=== PATIENT | female | born 1960 | race Caucasian/White ===

== ENCOUNTER → 2018-06-03 13:57 | Outpatient (CLI) | payer OTHER, MEDICAID, SELFPAY ==
--- NOTE | 2018-06-03 | DI.MRI.S_ITS ---
PROCEDURE: MR KNEE LT WO CON INDICATIONS: Left knee internal derangement TECHNIQUE: Noncontrast sagittal PD fast spin echo and T2 fast spin echo with fat saturation, sagittal 3-D FLASH with fat saturation; coronal T1 spin echo and PD fast spin echo with fat saturation, and axial PD fast spin echo with fat saturation through the knee. COMPARISON: [facility], CR, XR TIBIA FIBULA LEFT, 05/19/2018, 7:27. FINDINGS: Image quality: Excellent. Menisci: Linear high signal intensity obliquely traverses the posterior horn medial meniscus, demonstrating inferior articular surface extension, indicating oblique tearing. There is degenerative fraying of the free edge of the lateral meniscal body. Cruciate ligaments: The anterior and posterior cruciate ligaments appear intact. Medial structures: The medial collateral ligament appears intact. The posterior oblique ligament, semimembranosus tendon insertions, oblique popliteal ligament, and meniscocapsular junction appear intact. Visualized portions of the pes anserinus tendons appear normal. No abnormal bursal fluid. Lateral structures: The lateral collateral ligament, long and short heads of the biceps femoris tendon appear intact. The popliteus tendon appears normal; the popliteofibular ligament appears intact. The posterosuperior and anteroinferior popliteomeniscal fascicles appear intact. The arcuate and fabellofibular ligaments appear intact, on either side of the lateral inferior geniculate artery. Iliotibial band appears normal. Anterior structures: The quadriceps and patellar tendons appear intact. Patellar alignment is normal. No femoral trochlear dysplasia or ventral trochlear prominence. No edema in the infrapatellar fat pad. Bones and cartilage: Ill-defined linear low T1/T2 signal intensity traverses the fibular head/neck tension, and there is mild bony step-off posteriorly. Moderate ill-defined T2 signal elevation within the fibular head and neck is present. There is a moderate degree of ill-defined T2 signal elevation within the posterior weightbearing aspect of the medial tibial plateau. The cartilage of the medial and lateral femorotibial compartments, as well as the patellofemoral compartment, appears normal in thickness. Joint space: There is physiologic knee joint fluid. Small Hutson's cyst. Normal appearing synovial plicae are incidentally noted. IMPRESSION: 1. Mildly displaced fibular head/neck junction fracture. Contusion within the medial tibial plateau posteriorly. 2. Posterior horn medial meniscal tearing. Degenerative fraying of the free edge of the lateral meniscus. 3. Small knee joint effusion. Dictated by: River Haynes M.D. on 06/03/2018 at 15:06 Approved by: River Haynes M.D. on 06/03/2018 at 15:09
== END ==
PROVIDERS: Family Provider Family Medicine; PCP Family Medicine; Visit Provider Orthopaedic Surgery
DX: S82.832A Other fracture of upper and lower end of left fibula, initial encounter for closed fracture (principal); S83.242A Other tear of medial meniscus, current injury, left knee, initial encounter; M23.92 Unspecified internal derangement of left knee; M25.462 Effusion, left knee
CPT/HCPCS: 73721

== ENCOUNTER → 2018-08-19 11:45 | Outpatient (CLI) | payer MEDICARE, MEDICAID, SELFPAY ==
[2018-08-19 14:03] LABS: Add Manual Diff / Slide Review NO; Basophils Percent Auto 2.5 % (0-2); Eosinophils Percent Auto 3.1 % (2-4); Hematocrit 39.7 % (36-46); Hemoglobin 13.6 g/dL (12.0-16.0); Lymphocytes Percent Auto 43.1 % (25-40); Mean Corpuscular HGB Conc 34.2 % (30-36); Mean Corpuscular Hemoglobin 30.6 PG (26-34); Mean Corpuscular Volume 89.7 fL (80-100); Monocytes Percent Auto 6.2 % (3-14); Neutrophils Absolute Auto 2000 /uL (3000-5900); Neutrophils Percent Auto 45.1 % (50-75); Platelet Count 190 X10^3/uL (150-400); Red Blood Cell Count 4.43 X10^6/uL (4.0-5.2); Red Cell Distribution Width 14.6 % (11.6-14.8); White Blood Cell Count 4.4 X10^3/uL (4.5-11.0)
[2018-08-19 14:50] LABS: Alanine Aminotransferase 20 IU/L (9-52); Albumin 4.3 g/dL (3.5-5.0); Albumin Globulin Ratio 1.6 (1.0-2.8); Alkaline Phosphatase 101 U/L (38-126); Aspartate Aminotransferase 22 IU/L (14-36); BUN Creatinine Ratio 23.3 (6-22); Bilirubin Total 0.3 mg/dL (0.2-1.3); Blood Urea Nitrogen 14 mg/dL (7-17); Calcium 9.6 mg/dL (8.4-10.2); Carbon Dioxide 31 mmol/L (22-32); Chloride 103 mmol/L (98-107); Cholesterol 232 mg/dL (140-199); Estimated Glomerular Filt Rate > 60.0 mL/min (>60); Globulin 2.7 g/dL (1.7-4.1); Glucose 85 mg/dL (70-100); HDL Cholesterol 70 mg/dL (40-60); HEMOLYSIS < 15 (0-50); LDL Cholesterol Calculated 143 mg/dL (<100); Potassium 4.8 mmol/L (3.4-5.1); Sodium 143 mmol/L (137-145); Triglycerides 93 mg/dL (35-150)
[2018-08-19 15:15] LABS: Thyroid Stimulating Hormone 1.41 uIU/mL (0.47-4.68)
[2018-08-19 16:01] LABS: Hep C Virus Ab w/Reflex Quant REACTIVE s/c (NEGATIVE)
== END ==
PROVIDERS: PCP Family Medicine; Visit Provider Family Medicine
DX: G40.319 Generalized idiopathic epilepsy and epileptic syndromes, intractable, without status epilepticus (principal); Z78.9 Other specified health status; F33.1 Major depressive disorder, recurrent, moderate
CPT/HCPCS: 36415; 80053; 80061; 84443; 85025; 86803; 87522

== ENCOUNTER → 2019-09-12 16:18 | Outpatient (CLI) | payer MEDICARE, MEDICAID, SELFPAY ==
--- NOTE | 2019-09-12 | DI.RAD.S_ITS ---
PROCEDURE: XR T AND L SPINE 2 TO 3 VIEWS INDICATIONS: BACK PAIN/THORACOLUMBAR SPINE TECHNIQUE: 2 views acquired of the thoracolumbar spine. COMPARISON: None. FINDINGS: Bones: No acute fractures or dislocations. Visualized inferior ribs appear intact. No suspicious bony lesions. Mild lateral curvature and discogenic changes. Soft tissues: No suspicious soft tissue calcifications. IMPRESSION: No fracture. If the patient's pain or other symptoms persist, consider further evaluation with MRI Dictated by: Wan Dennison M.D. on 09/12/2019 at 17:29 Approved by: Wan Dennison M.D. on 09/12/2019 at 17:31
== END ==
PROVIDERS: PCP Student in an Organized Health Care Education/Training Program; Visit Provider Student in an Organized Health Care Education/Training Program
DX: M54.6 Pain in thoracic spine (principal)
CPT/HCPCS: 72082

== ENCOUNTER → 2020-06-27 15:59 | Outpatient (CLI) | payer MEDICARE, MEDICAID, SELFPAY ==
--- NOTE | 2020-06-27 16:02 | DI.RAD.S_ITS ---
PROCEDURE: XR FOOT LT MIN 3V INDICATIONS: LEFT FOOT PAIN TECHNIQUE: 3 views of the foot were acquired. COMPARISON: [facility], , FOOT 3V LEFT, 01/16/2015, 11:44. [facility], , FOOT 3V RIGHT, 05/19/2010, 19:48. FINDINGS: Bones: No new fractures or dislocations. No suspicious bony lesions. Healed avulsion fragment at the lateral border of the distal calcaneus. Prior fracture fusion plate lateral aspect of the fibula distally is again seen, free of disruption. Soft tissues: No tibiotalar joint effusion. Achilles tendon appears normal. IMPRESSION: Prior trauma, no acute trauma found. Dictated by: Ye Fajardo M.D. on 06/27/2020 at 16:43 Approved by: Ye Fajardo M.D. on 06/27/2020 at 16:45
== END ==
PROVIDERS: PCP Student in an Organized Health Care Education/Training Program; Referring Provider Student in an Organized Health Care Education/Training Program; Visit Provider Student in an Organized Health Care Education/Training Program
DX: M79.672 Pain in left foot (principal)
CPT/HCPCS: 73630

== ENCOUNTER → 2021-01-21 16:35 | Outpatient (CLI) | payer MEDICARE, MEDICAID, SELFPAY ==
--- NOTE | 2021-01-21 | DI.RAD.S_ITS ---
PROCEDURE: XR FOOT LT MIN 3V INDICATIONS: M79.676 TECHNIQUE: 3 views of the foot were acquired. COMPARISON: [facility], , XR FOOT LT MIN 3V, 06/27/2020, 16:08. FINDINGS: Bones: No fractures or dislocations. No suspicious bony lesions. Scattered degenerative subchondral sclerosis and spurring. Mild to moderate 1st MTP joint degeneration. Plate and screw fixation of the distal fibula. Hardware appears intact. Expected postoperative alignment. Small plantar calcaneal spur. Soft tissues: No tibiotalar joint effusion. Achilles tendon appears normal. IMPRESSION: Unchanged alignment Dictated by: Wan Dennison M.D. on 01/21/2021 at 16:57 Approved by: Wan Dennison M.D. on 01/21/2021 at 17:00
== END ==
PROVIDERS: PCP Student in an Organized Health Care Education/Training Program; Referring Provider Student in an Organized Health Care Education/Training Program; Visit Provider Student in an Organized Health Care Education/Training Program
DX: M79.672 Pain in left foot (principal); M79.676 Pain in unspecified toe(s)
CPT/HCPCS: 73630

== ENCOUNTER → 2021-08-07 15:09 | Outpatient (CLI) | payer MEDICARE, MEDICAID, SELFPAY ==
--- NOTE | 2021-08-07 | DI.RAD.S_ITS ---
PROCEDURE: XR CHEST 2V INDICATIONS: R07.9 TECHNIQUE: 2 views of the chest were acquired. COMPARISON: [facility], , CHEST 1 VIEW, 03/17/2017, 12:41. FINDINGS: Surgical changes and devices: None. Lungs and pleura: Lungs are clear. No pleural effusions or pneumothorax. Mediastinum: Mediastinal contours are normal. Heart size is normal. Bones and chest wall: No suspicious bony abnormalities. Soft tissues appear unremarkable. IMPRESSION: No acute cardiopulmonary abnormality Dictated by: Eamon Milton M.D. on 08/07/2021 at 16:17 Approved by: Eamon Milton M.D. on 08/07/2021 at 16:17
== END ==
PROVIDERS: PCP Student in an Organized Health Care Education/Training Program; Referring Provider Student in an Organized Health Care Education/Training Program; Visit Provider Student in an Organized Health Care Education/Training Program
DX: R07.9 Chest pain, unspecified (principal)
CPT/HCPCS: 71046

== ENCOUNTER → 2021-09-17 15:21 | Outpatient (CLI) | payer MEDICARE, MEDICAID, SELFPAY ==
--- NOTE | 2021-09-17 | DI.ECHO.S_ITS ---
[facility] +---------+ : : [address] : : : : [id number] : : : : Phone: [phone]+ Echocardiogram Report + + :Name: AMARI FIGUEROA Study Date: 09/17/2021 Height: 67.5 in: :[facility] ReadingLocation: Weight: 176 lb : : Gender: Female BSA: 1.9 m2 : :: 1960 Age: 61 yrs BP: 124/90 mmHg: :Reason For Study: CHEST PAIN : :Ordering Physician: MELISSA, : :ARMIN Performed By: Alesia Gaxiola : :Referring: ARMIN TORRES : + + Interpretation Summary The ejection fraction is estimated to be 55-60%. Unable to grade diastolic function. The right ventricle is normal in size and function. There is mild mitral regurgitation. Pulmonary artery pressures cannot be estimated. Procedure: A two-dimensional transthoracic echocardiogram with color flow and Doppler was performed. The study quality was technically adequate. There is no prior echocardiogram noted for this patient. The patient was in sinus rhythm with heart rates between 62-75 bpm during the exam. Left Ventricle: The left ventricle is normal in size and wall thickness. The ejection fraction is estimated to be 55-60%. Diastolic function could not be accurately assessed due to unobtainable data. Right Ventricle: The right ventricle is normal in size and function. Atria: The left atrium is mildly dilated. Right atrial size is normal. There is no Doppler evidence for an interatrial shunt. Mitral Valve: The mitral valve is normal in structure and function. There is mild mitral regurgitation. Aortic Valve: The aortic valve is trileaflet. The aortic valve opens well. There is no aortic valve stenosis. No aortic regurgitation is present. Tricuspid Valve: The tricuspid valve is normal in structure and function. There is trace tricuspid regurgitation. Pulmonary artery pressures cannot be estimated because of the lack of a measurable TR jet velocity. Pulmonic Valve: The pulmonic valve leaflets are thin and pliable; valve motion is normal. There is trace pulmonic regurgitation. Great Vessels: The aortic root is normal size. The dimensions of the ascending aorta are normal. The IVC is of normal diameter and collapses less than 50% with a sniff. This suggests a right atrial pressure of 8 mm Hg. Pericardium/ Pleura There is no pericardial effusion. There is no pleural effusion. MMode/2D Measurements & Calculations LVIDd: 4.5 cm LVOT diam: 2.1 cm LVIDs: 3.2 cm Ao root diam: 3.4 cm FS: 28.5 % Ao Arch Diam (Prox Trans): 2.6 cm IVSd: 0.58 cm LVPWd: 0.67 cm LV hidalgo. diameter/BSA (cm/m^2): 2.3 LV sys. diameter/BSA (cm/m^2): 1.7 LA A2 area: 14.6 cm2 RA long axis: 4.7 cm LA A4 area: 14.3 cm2 RA area: 12.4 cm2 LA length (vol): 4.5 cm RA vol: 27.9 ml LA vol: 39.2 ml RA : 14.5 ml/m2 LA vol index: 20.4 ml/m2 RVD1 (basal): 2.6 cm TAPSE: 1.8 cm Doppler Measurements & Calculations Ao V2 max: 114.4 cm/sec LVOT Max Kenneth: 73.2 cm/sec Ao V2 mean: 78.8 cm/sec LV V1 max P.1 mmHg Ao max P.2 mmHg LV V1 VTI: 12.9 cm Ao mean P.8 mmHg JAK(I,D): 2.2 cm2 Ao V2 VTI: 21.3 cm JAK(V,D): 2.3 cm2 sev ratio: 0.61 JAK indexed to BSA (cm^2/m^2): 1.1 MV E max kenneth: 38.4 cm/sec PA V2 max: 73.5 cm/sec MV A max kenneth: 60.3 cm/sec PA V2 mean: 49.4 cm/sec MV E/A: 0.64 PA mean P.1 mmHg Med Peak E' Kenneth: 3.9 cm/sec PA pr(Accel): 41.3 mmHg E/E' med: 9.8 Lat Peak E' Kenneth: 6.3 cm/sec E/E' lat: 6.1 E/e' average: 7.9 MV dec time: 0.28 sec SV(LVOT): 45.9 ml Reading Physician:01:33 PM
== END ==
PROVIDERS: PCP Student in an Organized Health Care Education/Training Program; Referring Provider Student in an Organized Health Care Education/Training Program; Visit Provider Student in an Organized Health Care Education/Training Program
DX: I34.0 Nonrheumatic mitral (valve) insufficiency (principal); R07.9 Chest pain, unspecified
CPT/HCPCS: 93306

== ENCOUNTER → 2021-12-31 11:09 | Outpatient (CLI) | payer OTHER, MEDICAID, SELFPAY ==
[2021-12-31 13:47] LABS: COVID19 -Nasal RAPID Negative (Negative)
== END ==
PROVIDERS: PCP Student in an Organized Health Care Education/Training Program; Visit Provider Family Medicine Sleep Medicine
DX: Z20.822 Contact with and (suspected) exposure to COVID-19 (principal)
CPT/HCPCS: 87635; C9803

== ENCOUNTER 2023-03-17 03:04 | Emergency (ER) | payer OTHER, MEDICAID, SELFPAY ==
[2023-03-17] VITALS (7 sets, daily range): BP systolic 87–135; BP diastolic 53–84; PULSE 69–82; RESP 15–43; TEMP 37.1; O2SAT 97–99; BMI 21.1
--- NOTE | 2023-03-17 03:09 | DI.RAD.S_ITS ---
PROCEDURE: XR CHEST 1V INDICATIONS: chest pain TECHNIQUE: One view of the chest was acquired. COMPARISON: [facility], CR, XR CHEST 2V, 08/07/2021, 15:24. FINDINGS: Surgical changes and devices: None. Lungs and pleura: Trace bibasilar hazy opacity. No consolidation. No pleural effusions or pneumothorax. Mediastinum: Mediastinal contours appear normal. Heart size is normal. Bones and chest wall: No suspicious bony lesions. Overlying soft tissues appear unremarkable. IMPRESSION: Mild bibasilar atelectasis. This report is concordant with the overnight preliminary interpretation. Dictated by: David Paulson M.D. on 03/17/2023 at 8:41 Approved by: David Paulson M.D. on 03/17/2023 at 8:42
[2023-03-17 03:18] LABS: Add Manual Diff / Slide Review NO; Basophils Absolute Auto 100 /uL (0-100); Basophils Percent Auto 1.8 % (0-2); Eosinophils Absolute Auto 200 /uL (0-450); Hematocrit 38.9 % (36-46); Hemoglobin 13.2 g/dL (12.0-16.0); Lymphocytes Absolute Auto 1800 /uL (1100-4500); Lymphocytes Percent Auto 27.6 % (25-40); Mean Corpuscular HGB Conc 33.9 % (30-36); Mean Corpuscular Hemoglobin 29.6 PG (26-34); Mean Corpuscular Volume 87.4 fL (80-100); Monocytes Absolute Auto 400 /uL (0-900); Monocytes Percent Auto 6.5 % (3-14); Neutrophils Absolute Auto 3900 /uL (1500-7000); Neutrophils Percent Auto 61.1 % (50-75); Platelet Count 208 X10^3/uL (150-400); Red Blood Cell Count 4.45 X10^6/uL (4.0-5.2); Red Cell Distribution Width 13.7 % (11.6-14.8); White Blood Cell Count 6.4 X10^3/uL (4.5-11.0)
--- NOTE | 2023-03-17 03:25 | ED_ITS ---
HPI - Chest Pain General Chief Complaint: Chest Pain Stated Complaint: chest pain Time Seen by Provider: 03/17/23 03:08 Source: patient and EMS Mode of arrival: EMS Limitations: no limitations History of Present Illness HPI narrative: Patient is a 62-year-old female who was brought in by EMS for evaluation of left sided chest discomfort. She states she was just sitting in her toe room when the symptoms started. It is on the left side of her chest. It is reproducible when she touches it. It does radiate to her left arm. She contacted EMS. She took 2 baby aspirin prior to arrival. She also received fentanyl by EMS prior to arrival without any improvement. Shortness of breath. No skin rashes. Related Data Home Medications Medication Instructions Recorded Confirmed fluoxetine 40 mg capsule (Prozac) 20 mg PO QDAY ##0 01/30/13 ibuprofen 200 mg capsule (Advil 200 mg PO ##0 11/11/16 Liqui-Gel) Previous Rx's Medication Instructions Recorded propranolol 20 mg tablet 20 mg PO BID #60 tabs 10/21/16 ketorolac 10 mg tablet 10 mg PO Q6HP PRN #20 tabs 11/11/16 hydrocodone 5 mg-acetaminophen 325 1 tab PO Q4HP PRN #15 tabs 11/20/16 mg tablet ([place]) phenytoin sodium extended 100 mg 500 mg PO SEE INSTRUCTIONS #125 12/23/16 capsule (Dilantin Extended) tabs divalproex 500 mg tablet,extended 0 PO SEE INSTRUCTIONS #100 tabs 12/21/17 release 24 hr (Depakote ER) Allergies Allergy/AdvReac Type Severity Reaction Status Date / Time codeine [CODEINE] Allergy Unknown Unverified 03/02/18 12:32 oxycodone [OXYCODONE] Allergy Unknown Unverified 03/02/18 12:32 Review of Systems Constitutional Constitutional: Reports system reviewed and no additional complaints, except as documented ENT Ears, Nose, Mouth, and Throat: Reports system reviewed and no additional complaints, except as documented Cardiovascular Cardiovascular: Reports system reviewed and no additional complaints, except as documented Respiratory Respiratory: Reports system reviewed and no additional complaints, except as documented Gastrointestinal Gastrointestinal: Reports system reviewed and no additional complaints, except as documented Integumentary/Breasts Skin/Breast: Reports system reviewed and no additional complaints, except as documented Patient History Social History Smoking Status: Current every day smoker Smoking Status: Current every day smoker tobacco type: cigarettes Substance Use Type: does not use Exam Initial Vital Signs Initial Vital Signs: Vital Signs Pulse Rate 82 03/17/23 03:11 Pulse Oximetry 99 03/17/23 03:11 Const General: cooperative and comfortable HENMT Head: normal to inspection and normocephalic Chest Chest: No crepitus and tenderness (Left-sided chest tenderness to palpation) Resp Effort & Inspection: normal respiratory effort Auscultation: clear to auscultation bilaterally Cardio Rate: regular rate Rhythm: regular rhythm Skin General: no rashes or lesions noted Neuro General: patient alert, patient awake and moves all extremities Extrem General: normal to inspection and capillary refill normal Course Orders Ordered: ED Orders 03/17/23 03:05 Complete Blood Count AUTO DIFF Stat Comprehensive Metabolic Panel Stat Lipase Stat Troponin & CK Cardiac Panel Stat 03/17/23 03:09 XR chest 1V Stat EKG-12 Lead Stat Vital Signs Vital signs: Vital Signs - 8 hr 03/17/23 03:15 03/17/23 03:11 03/17/23 03:30 Temperature 98.8 F Pulse Rate 78 82 Respiratory Rate 18 Blood Pressure 135/84 113/61 Pulse Oximetry 99 99 Oxygen Delivery Method Room Air 03/17/23 03:30 Temperature Pulse Rate 75 Respiratory Rate 15 Blood Pressure Pulse Oximetry 98 Oxygen Delivery Method MDM - Chest Pain Lab Data Attestation: I reviewed the patient's lab results. 03/17/23 03:05 03/17/23 03:05 Labs: Lab Results 03/17/23 03/17/23 Range/Units 03:05 03:05 WBC 6.4 (4.5-11.0) X10^3/uL RBC 4.45 (4.0-5.2) X10^6/uL Hgb 13.2 (12.0-16.0) g/dL Hct 38.9 (36-46) % MCV 87.4 (80-100) fL MCH 29.6 (26-34) PG MCHC 33.9 (30-36) % RDW 13.7 (11.6-14.8) % Plt Count 208 (150-400) X10^3/uL Neut % (Auto) 61.1 (50-75) % Lymph % (Auto) 27.6 (25-40) % [place] % (Auto) 6.5 (3-14) % Eos % (Auto) 3.0 (2-4) % Baso % (Auto) 1.8 (0-2) % Neut # (Auto) 3900 (8060-5306) /uL Lymph # (Auto) 1800 (2611-2059) /uL [place] # (Auto) 400 (0-900) /uL Eos # (Auto) 200 (0-450) /uL Baso # (Auto) 100 (0-100) /uL Sodium 138 (137-145) mmol/L Potassium 3.2 L (3.4-5.1) mmol/L Chloride 103 (98-107) mmol/L Carbon Dioxide 27 (22-32) mmol/L BUN 10 (7-17) mg/dL Creatinine 0.56 (0.52-1.04) mg/dL Estimated GFR > 60 (>60) mL/min BUN/Creatinine Ratio 17.9 (6-22) Glucose 101 (80-110) mg/dL Calcium 9.1 (8.4-10.2) mg/dL Total Bilirubin 0.5 (0.2-1.3) mg/dL AST 21 (14-36) IU/L ALT 18 (<35) IU/L Alkaline Phosphatase 146 H (38-126) U/L Total Creatine Kinase 59 (30-135) U/L CK-MB (CK-2) TNP CK-MB (CK-2) Rel Index TNP Troponin I < 0.012 (0.01-0.034) ng/mL Total Protein 7.5 (6.3-8.2) g/dL Albumin 4.4 (3.5-5.0) g/dL Globulin 3.1 (1.7-4.1) g/dL Albumin/Globulin Ratio 1.4 (1.0-2.8) Lipase 209 (23-300) U/L Imaging Data Chest x-ray: Radiologist's Impression: Mild bibasilar subsegmental atelectasis ECG Data Attestation: I personally reviewed and interpreted this ECG as follows: Interpretation: Sinus rhythm Ventricular rate 81 Normal axis Artifact noted in 1,2,3 No ischemic changes MDM Narrative Medical decision making narrative: Patient's chest x-ray is unremarkable. No ischemic changes noted on the EKG. Troponin is negative. We are able to reproduce the discomfort on the left side of her chest by palpating the anterior portion of her chest. Given the fact that it is reproducible if low suspicion for ACS. Low suspicion for pneumonia. No skin changes. Can potentially be costochondritis. Did discuss this with her. She understands lack of a definitive diagnosis. We will hold on further workup for now. Discharge patient home with instructions to follow-up with primary doctor. Discharge Plan Departure Patient Disposition: Home Clinical Impression: Acute chest wall pain Instructions: DI for Atypical Chest Pain Activity Restrictions/Additional Instructions: Recommend that you continue to take all of your medications as directed. Contact your primary doctor for follow-up. Return to the emergency department for new symptoms. Prescriptions: No Action fluoxetine [Prozac] 40 MG capsule 20 mg PO QDAY Qty: 0 propranolol 20 MG tablet 20 mg PO BID Qty: 60 3RF ibuprofen [Advil Liqui-Gel] 200 MG capsule 200 mg PO Qty: 0 ketorolac 10 MG tablet 10 mg PO Q6HP PRNQty: 20 0RF hydrocodone-acetaminophen [[place]] 5 MG/325 MG tablet 1 tab PO Q4HP PRNQty: 15 0RF phenytoin sodium extended [Dilantin Extended] 100 MG capsule 500 mg PO SEE INSTRUCTIONS Qty: 125 12RF divalproex [Depakote ER] 500 MG tablet extended release 24 hr 0 PO SEE INSTRUCTIONS Qty: 100 5RF Referrals: Madison Holly MD [Primary Care Provider] - Stand Alone Forms: Patient Portal/API
[2023-03-17 03:28] LABS: Alanine Aminotransferase 18 IU/L (<35); Albumin 4.4 g/dL (3.5-5.0); Albumin Globulin Ratio 1.4 (1.0-2.8); Alkaline Phosphatase 146 U/L (38-126); Aspartate Aminotransferase 21 IU/L (14-36); BUN Creatinine Ratio 17.9 (6-22); Bilirubin Total 0.5 mg/dL (0.2-1.3); Blood Urea Nitrogen 10 mg/dL (7-17); Calcium 9.1 mg/dL (8.4-10.2); Carbon Dioxide 27 mmol/L (22-32); Chloride 103 mmol/L (98-107); Creatine Kinase 59 U/L (30-135); Estimated Glomerular Filt Rate > 60 mL/min (>60); Globulin 3.1 g/dL (1.7-4.1); Glucose 101 mg/dL (80-110); HEMOLYSIS < 15 (0-50); Lipase 209 U/L (23-300); Potassium 3.2 mmol/L (3.4-5.1); Sodium 138 mmol/L (137-145); Total Protein 7.5 g/dL (6.3-8.2)
[2023-03-17 03:40] LABS: Troponin I < 0.012 ng/mL (0.01-0.034)
== END 2023-03-17 06:10 | disposition home or self-care (01) ==
PROVIDERS: Emergency Provider Emergency Medicine; PCP Student in an Organized Health Care Education/Training Program
DX: R07.89 Other chest pain (principal)
CPT/HCPCS: 36415; 71045; 80053; 82550; 83690; 84484; 85025; 93005; 93010; 99283; 99284

== ENCOUNTER 2023-03-27 22:06 | Emergency (ER) | payer OTHER, MEDICAID, SELFPAY ==
[2023-03-27 22:20] VITALS: BP 126/60; PULSE 88; RESP 16; TEMP 36.7; O2SAT 99; BMI 21.9
[2023-03-27 23:58] VITALS: BP 145/81; PULSE 90; RESP 24; O2SAT 100
--- NOTE | 2023-03-28 00:01 | DI.RAD.S_ITS ---
PROCEDURE: XR CHEST 2V INDICATIONS: SOB, CP TECHNIQUE: 2 views of the chest were acquired. COMPARISON: [facility], CR, XR CHEST 1V, 03/17/2023, 3:06. [facility], CR, XR CHEST 2V, 08/07/2021, 15:24. FINDINGS: Surgical changes and devices: None. Lungs and pleura: Lungs are clear. No pleural effusions or pneumothorax. Mediastinum: Mediastinal contours are normal. Heart size is normal. Bones and chest wall: No suspicious bony abnormalities. Soft tissues appear unremarkable. IMPRESSION: Relatively large lung volumes, possible prior smoking history. No pneumonia or pneumothorax found. Dictated by: Ye Fajardo M.D. on 03/28/2023 at 0:29 Approved by: Ye Fajardo M.D. on 03/28/2023 at 0:30
[2023-03-28 00:28] VITALS: PULSE 95; O2SAT 100
[2023-03-28 00:29] VITALS: BP 126/60; PULSE 91; O2SAT 100
[2023-03-28 00:30] VITALS: BP 125/60; PULSE 88; O2SAT 100
[2023-03-28] MEDS: SODIUM CHLORIDE 0.9% 1,000 ML 1000 ML IV (00:41)
[2023-03-28 00:43] LABS: Add Manual Diff / Slide Review NO; Basophils Absolute Auto 100 /uL (0-100); Basophils Percent Auto 1.3 % (0-2); Eosinophils Absolute Auto 100 /uL (0-450); Eosinophils Percent Auto 1.9 % (2-4); Hematocrit 37.7 % (36-46); Hemoglobin 12.8 g/dL (12.0-16.0); Lymphocytes Absolute Auto 1700 /uL (1100-4500); Lymphocytes Percent Auto 29.7 % (25-40); Mean Corpuscular Hemoglobin 29.8 PG (26-34); Mean Corpuscular Volume 87.7 fL (80-100); Monocytes Absolute Auto 400 /uL (0-900); Monocytes Percent Auto 7.1 % (3-14); Neutrophils Absolute Auto 3500 /uL (1500-7000); Platelet Count 242 X10^3/uL (150-400); Red Blood Cell Count 4.31 X10^6/uL (4.0-5.2); White Blood Cell Count 5.9 X10^3/uL (4.5-11.0)
[2023-03-28 00:51] LABS: D Dimer 608 ng/ml (<500)
[2023-03-28 00:55] LABS: Alanine Aminotransferase 16 IU/L (<35); Albumin 4.6 g/dL (3.5-5.0); Albumin Globulin Ratio 1.4 (1.0-2.8); Alkaline Phosphatase 117 U/L (38-126); Aspartate Aminotransferase 25 IU/L (14-36); BUN Creatinine Ratio 18.8 (6-22); Bilirubin Total 0.6 mg/dL (0.2-1.3); Blood Urea Nitrogen 12 mg/dL (7-17); Calcium 9.5 mg/dL (8.4-10.2); Carbon Dioxide 24 mmol/L (22-32); Chloride 105 mmol/L (98-107); Creatine Kinase 160 U/L (30-135); Estimated Glomerular Filt Rate > 60 mL/min (>60); Globulin 3.3 g/dL (1.7-4.1); Glucose 90 mg/dL (80-110); HEMOLYSIS 17 (0-50); Lipase 196 U/L (23-300); Magnesium 2.1 mg/dL (1.6-2.3); Potassium 3.4 mmol/L (3.4-5.1); Sodium 140 mmol/L (137-145); Total Protein 7.9 g/dL (6.3-8.2)
[2023-03-28 01:03] VITALS: PULSE 89; O2SAT 87
[2023-03-28 01:05] VITALS: BP 126/67; PULSE 93; O2SAT 100
[2023-03-28 01:06] LABS: Troponin I < 0.012 ng/mL (0.01-0.034)
[2023-03-28 01:09] LABS: CKMB % Relative Index 1.2 % (1.5-5.0); Creatine Kinase MB 1.92 ng/mL (<2.37)
--- NOTE | 2023-03-28 01:27 | ED_ITS ---
HPI - General Adult General Chief complaint: Urogenital-Female Stated complaint: Dehydrated Time Seen by Provider: 03/28/23 00:01 Source: patient Mode of arrival: Ambulatory History of Present Illness HPI narrative: 62-year-old female smoker with history of hypertension, peripheral artery disease, epilepsy, migraines, substance abuse and alcohol abuse presents to the emergency department this evening stating that she is dehydrated. She states that she has been a bit dizzy and lightheaded and urinating frequently. She denies any fever or chills. She states that she has been having chest pain and occasionally short of breath but denies any cough, fever or chills. She denies abdominal pain or constipation. She had been at [facility] yesterday with a chief complaint of chest pain and had a thorough evaluation including labs, imaging and EKGs and was discharged with a diagnosis of musculoskeletal pain Related Data Home Medications Medication Instructions Recorded Confirmed fluoxetine 40 mg capsule (Prozac) 20 mg PO QDAY ##0 01/30/13 ibuprofen 200 mg capsule (Advil 200 mg PO ##0 11/11/16 Liqui-Gel) Previous Rx's Medication Instructions Recorded propranolol 20 mg tablet 20 mg PO BID #60 tabs 10/21/16 ketorolac 10 mg tablet 10 mg PO Q6HP PRN #20 tabs 11/11/16 hydrocodone 5 mg-acetaminophen 325 1 tab PO Q4HP PRN #15 tabs 11/20/16 mg tablet (Bricelyn) phenytoin sodium extended 100 mg 500 mg PO SEE INSTRUCTIONS #125 12/23/16 capsule (Dilantin Extended) tabs divalproex 500 mg tablet,extended 0 PO SEE INSTRUCTIONS #100 tabs 12/21/17 release 24 hr (Depakote ER) Allergies Allergy/AdvReac Type Severity Reaction Status Date / Time codeine [CODEINE] Allergy Unknown Unverified 03/02/18 12:32 oxycodone [OXYCODONE] Allergy Unknown Unverified 03/02/18 12:32 Review of Systems Review of Systems Narrative: GENERAL: Denies chills, fatigue, malaise, fever, sweats. HEENT: Denies sinus pain, ear pain, sore throat, difficulty swallowing, dizziness. RESPIRATORY: Denies dyspnea, cough, wheezing, hemoptysis, sputum. CARDIOVASCULAR: See HPI GASTROINTESTINAL: Denies nausea, vomiting, abdominal pain, diarrhea, constipation, melena. : See HPI MUSCULOSKELETAL: denies weakness, joint pain, or bony pain SKIN: Denies rash, skin lesions, or other NEUROLOGIC: Denies weakness, headache, numbness, change in speech, confusion, seizures, incoordination. PSYCHIATRIC: No concerning psychosocial issues. 12 point review of systems is negative except for those stated above Patient History Social History Smoking Status: Current every day smoker Smoking Status: Current every day smoker tobacco type: cigarettes Substance Use Type: does not use Exam Narrative Exam Narrative: GENERAL: [62] year old patient appears stated age. Well-developed patient, in mild distress. HEAD: Atraumatic. Normocephalic. EYES: Pupils equal round and reactive. Extraocular motions intact. No scleral icterus. No injection or drainage. ENT: Moist mucous membranes Nose without bleeding, purulent drainage. Throat without erythema, tonsillar hypertrophy or exudate. Airway patent. NECK: Trachea midline. Non tender CARDIOVASCULAR: Regular rate and rhythm without murmurs, gallops, or rubs. Left anterior chest tender to palpation, reproduces the pain that brought her in RESPIRATORY: Clear to auscultation. Breath sounds equal bilaterally. No wheezes, rales, or rhonchi. GASTROINTESTINAL: Abdomen soft, non-tender, nondistended. EXTREMITIES: No edema or joint tenderness. BACK: Nontender without deformity or crepitance. No flank tenderness. NEURO: AOx3. SKIN: No rash or erythema of visible areas Initial Vital Signs Initial Vital Signs: Vital Signs Temperature 98.1 F 03/27/23 22:20 Pulse Rate 88 03/27/23 22:20 Respiratory Rate 16 03/27/23 22:20 Blood Pressure 126/60 03/27/23 22:20 Pulse Oximetry 99 03/27/23 22:20 Oxygen Delivery Method Room Air 03/27/23 22:20 Scores HEART Score Heart Score history: Slightly Suspicious Heart Score EKG: Non-Specific repolarization disturbance Heart Score Age: 45-64 years old Heart Score risk factors: 1-2 risk factors Heart Score troponin: < or = to normal limit Heart Score Total: 3 PERC Score Age greater than or equal to 50 years: Yes Heart rate greater than or equal to 100 bpm: No Room Air O2 Sat less than 95%: No Unilateral leg swelling: No Recent trauma or surgery: No Hemoptysis: No Prior PE or DVT: No Hormone Use: No Total PERC Score: 1 Wells' Criteria for PE Clinical signs and symptoms of DVT: No PE is #1 Dx or equally likely: No Heart rate > 100: No Immobilization at least 3 days or surg in previous 4 weeks: No History of PE or DVT: No Hemoptysis: No Malignancy w/Treatment within 6 months or palliative: No Wells' PE Score total: 0 Course Orders Ordered: ED Orders 03/28/23 00:01 XR chest 2V Stat 03/28/23 00:02 EKG-12 Lead Stat 03/28/23 00:33 Complete Blood Count AUTO DIFF Stat Comprehensive Metabolic Panel Stat D Dimer Stat Lipase Stat Magnesium Stat Troponin & CK Cardiac Panel Stat 03/28/23 01:14 CT angio chest PE protocol Stat Discontinued Medications Sodium Chloride (Normal Saline 0.9%) 1,000 mls @ 1,000 mls/hr IV BOLUS ONE Stop: 03/28/23 01:00 Last Infusion: 03/28/23 01:40 Dose: 0 mls/hr Documented By: Admin: 03/28/23 00:41 Dose: 1,000 mls/hr Documented By: RAUDEL Vital Signs Vital signs: Vital Signs - 8 hr 03/27/23 22:20 03/27/23 23:58 03/28/23 00:28 Temperature 98.1 F Pulse Rate 88 90 95 H Respiratory Rate 16 24 Blood Pressure 126/60 145/81 H Pulse Oximetry 99 100 100 Oxygen Delivery Method Room Air Room Air 03/28/23 00:29 03/28/23 00:29 03/28/23 00:30 Temperature Pulse Rate 91 H Respiratory Rate Blood Pressure 126/60 125/60 Pulse Oximetry 100 Oxygen Delivery Method 03/28/23 00:30 03/28/23 01:03 03/28/23 01:05 Temperature Pulse Rate 88 89 Respiratory Rate Blood Pressure 126/67 Pulse Oximetry 100 87 L Oxygen Delivery Method 03/28/23 01:05 03/28/23 01:30 03/28/23 01:30 Temperature Pulse Rate 93 H 85 Respiratory Rate Blood Pressure 127/69 Pulse Oximetry 100 98 Oxygen Delivery Method Medical Decision Making Lab Data 03/28/23 00:33 03/28/23 00:33 Labs: Lab Results 03/28/23 03/28/23 03/28/23 Range/Units 00:33 00:33 00:33 WBC 5.9 (4.5-11.0) X10^3/uL RBC 4.31 (4.0-5.2) X10^6/uL Hgb 12.8 (12.0-16.0) g/dL Hct 37.7 (36-46) % MCV 87.7 (80-100) fL MCH 29.8 (26-34) PG MCHC 34.0 (30-36) % RDW 14.0 (11.6-14.8) % Plt Count 242 (150-400) X10^3/uL Neut % (Auto) 60.0 (50-75) % Lymph % (Auto) 29.7 (25-40) % [place] % (Auto) 7.1 (3-14) % Eos % (Auto) 1.9 L (2-4) % Baso % (Auto) 1.3 (0-2) % Neut # (Auto) 3500 (6909-7918) /uL Lymph # (Auto) 1700 (3145-0443) /uL [place] # (Auto) 400 (0-900) /uL Eos # (Auto) 100 (0-450) /uL Baso # (Auto) 100 (0-100) /uL D-Dimer 608 H (<500) ng/ml Sodium 140 (137-145) mmol/L Potassium 3.4 (3.4-5.1) mmol/L Chloride 105 (98-107) mmol/L Carbon Dioxide 24 (22-32) mmol/L BUN 12 (7-17) mg/dL Creatinine 0.64 (0.52-1.04) mg/dL Estimated GFR > 60 (>60) mL/min BUN/Creatinine Ratio 18.8 (6-22) Glucose 90 (80-110) mg/dL Calcium 9.5 (8.4-10.2) mg/dL Magnesium 2.1 (1.6-2.3) mg/dL Total Bilirubin 0.6 (0.2-1.3) mg/dL AST 25 (14-36) IU/L ALT 16 (<35) IU/L Alkaline Phosphatase 117 (38-126) U/L Total Creatine Kinase 160 H (30-135) U/L CK-MB (CK-2) 1.92 (<2.37) ng/mL CK-MB (CK-2) Rel Index 1.2 L (1.5-5.0) % Troponin I < 0.012 (0.01-0.034) ng/mL Total Protein 7.9 (6.3-8.2) g/dL Albumin 4.6 (3.5-5.0) g/dL Globulin 3.3 (1.7-4.1) g/dL Albumin/Globulin Ratio 1.4 (1.0-2.8) Lipase 196 (23-300) U/L Urine Dip Bedside Urine Glucose Negative Bedside Urine Bilirubin - Negative Bedside Urine Ketone - Negative Urine Specific [place] 1.005 Bedside Urine Occult Blood - Negative Bedside Urine pH 6.0 Bedside Urine Protein - Negative Bedside Urine Urobilinogen - Negative Bedside Urine Nitrite - Negative Bedside Urine Leukocytes - Negative Esterase Point of care testing: Urine Dip Bedside Urine Glucose Negative Bedside Urine Bilirubin - Negative Bedside Urine Ketone - Negative Urine Specific [place] 1.005 Bedside Urine Occult Blood - Negative Bedside Urine pH 6.0 Bedside Urine Protein - Negative Bedside Urine Urobilinogen - Negative Bedside Urine Nitrite - Negative Bedside Urine Leukocytes - Negative Esterase MDM Narrative Medical decision making narrative: CC: 62-year-old female complains of dehydration Complicating co-morbidities: Age, alcohol abuse, peripheral artery disease, substance abuse versus other Data collected from: Patient Medical records reviewed: Prior notes reviewed in our EMR Differential considered, but not limited to: Dehydration, urinary tract infection, electrolyte abnormality, cardiac ischemia, pulmonary embolism versus other Exam documented above, pertinent findings include: Alert and oriented, no evidence of shortness of breath, heart rate regular, reproducible anterior chest pain, moist mucous membranes Lab Test results independently reviewed as above. Pertinent findings: No leukocytosis, left shift or signs of anemia. D-dimer is above age corrected cutoff, electrolytes, renal function, troponin all within normal Independently reviewed EKG as above Imaging studies independently reviewed: Scores Used: HEART. Wells/Perc Treatments: Fluids Re-evaluations: Patient feeling much better and in fact demanding to leave prior to the completion of our evaluation despite discussions at the bedside regarding risks and benefits and my concerns about the possibility of pulmonary embolism or other diagnosis. Despite this discussion she likes to leave. She is able to speak clearly and walk a straight line, she clearly has capacity to make her own decisions. She understands the risks and benefits and states she will return if she changes her mind. Discharge Plan Departure Patient Disposition: Left Against Medical Advice Clinical Impression: Urinary frequency, Atypical chest pain Activity Restrictions/Additional Instructions: *You have been diagnosed with [urinary frequency, question of possible dehydration and atypical chest pain. As we discussed I strongly recommend a CT scan of your chest to evaluate the possibility of a blood clot given your pain and elevated Ddimer. You may return any time if you change your mind *What to do: *Please continue to take your regular medications as directed. [ ] New medication prescriptions sent to your pharmacy: [ ] [ ] New medication written as a paper prescription [ ] No new medications given *Please follow up with your primary care provider in 2-3 days, call for an appointment. Let them know you were seen in the Emergency Department and that we ask that you be seen in follow up. We will electronically transmit a record of today's note if your PCP is in our system *If you do not have a primary care provider please contact the [facility] Resource line at [phone]. They will ask some questions about your medical history and help get you set up with a doctor in the community. *Return to Emergency Department if you should have any new, worsening or concerning symptoms, such as [fever greater than 101 F, shaking chills, worsening pain, persistent vomiting or other bothersome symptoms] Prescriptions: No Action fluoxetine [Prozac] 40 MG capsule 20 mg PO QDAY Qty: 0 propranolol 20 MG tablet 20 mg PO BID Qty: 60 3RF ibuprofen [Advil Liqui-Gel] 200 MG capsule 200 mg PO Qty: 0 ketorolac 10 MG tablet 10 mg PO Q6HP PRNQty: 20 0RF hydrocodone-acetaminophen [Bricelyn] 5 MG/325 MG tablet 1 tab PO Q4HP PRNQty: 15 0RF phenytoin sodium extended [Dilantin Extended] 100 MG capsule 500 mg PO SEE INSTRUCTIONS Qty: 125 12RF divalproex [Depakote ER] 500 MG tablet extended release 24 hr 0 PO SEE INSTRUCTIONS Qty: 100 5RF Stand Alone Forms: Against Medical Advice
[2023-03-28 01:30] VITALS: BP 127/69; PULSE 85; O2SAT 98
--- NOTE | 2023-03-28 02:09 | PC.NURSE ---
Pt resistant to answering questions. Paced around room & watched monitor closely. Staed she didn't need anything else & requested to be discharged.
== END 2023-03-28 02:13 | disposition left against medical advice (07) ==
PROVIDERS: Emergency Provider Emergency Medicine
DX: R35.0 Frequency of micturition (principal); R07.89 Other chest pain; R42 Dizziness and giddiness
CPT/HCPCS: 36415; 71046; 80053; 81003; 82550; 82553; 83690; 83735; 84484; 85025; 85379; 93005; 99284

== ENCOUNTER 2023-04-21 03:34 | Emergency (ER) | payer OTHER, MEDICAID, SELFPAY ==
[2023-04-21] VITALS (8 sets, daily range): BP systolic 104–129; BP diastolic 54–62; PULSE 78–89; RESP 15–18; TEMP 36.4; O2SAT 99–100; BMI 21.5
[2023-04-21] MEDS: SODIUM CHLORIDE 0.9% 1,000 ML 1000 ML IV (03:53)
[2023-04-21 04:00] LABS: Add Manual Diff / Slide Review NO; Basophils Absolute Auto 100 /uL (0-100); Basophils Percent Auto 1.2 % (0-2); Eosinophils Absolute Auto 100 /uL (0-450); Eosinophils Percent Auto 1.2 % (2-4); Hematocrit 35.2 % (36-46); Hemoglobin 12.1 g/dL (12.0-16.0); Lymphocytes Absolute Auto 1400 /uL (1100-4500); Lymphocytes Percent Auto 22.8 % (25-40); Mean Corpuscular HGB Conc 34.3 % (30-36); Mean Corpuscular Hemoglobin 29.4 PG (26-34); Mean Corpuscular Volume 85.7 fL (80-100); Monocytes Absolute Auto 400 /uL (0-900); Monocytes Percent Auto 6.2 % (3-14); Neutrophils Absolute Auto 4200 /uL (1500-7000); Neutrophils Percent Auto 68.6 % (50-75); Platelet Count 268 X10^3/uL (150-400); Red Cell Distribution Width 14.1 % (11.6-14.8); White Blood Cell Count 6.2 X10^3/uL (4.5-11.0)
[2023-04-21 04:05] LABS: INR 1.3 (0.9-1.3); Prothrombin Time 15.4 SECONDS (10.1-12.7)
[2023-04-21 04:06] LABS: D Dimer 753 ng/ml (<500)
--- NOTE | 2023-04-21 04:06 | ED_ITS ---
HPI - General Adult General Chief complaint: Dizziness Stated complaint: dizzy Time Seen by Provider: 04/21/23 03:35 History of Present Illness HPI narrative: 62-year-old female smoker with history of hypertension, peripheral artery disease, epilepsy, migraines, substance abuse and alcohol abuse presents to the emergency department this evening with multiple complaints. She states that over the course of the day in actually more often than not lately she has had dizziness that seems to be worse when she stands. She states it is not as bad when she turns her head from [address] way to the other. She states that she has had head injuries in the past but does not think she is had anything recently. She has a frontal headache that seems to come and go without obvious provocation or palliation. She denies blurred vision or trouble with speech. She has no neck pain. She has had some nasal congestion, sneezing, coughing and sore throat. She denies any chest pain or notable shortness of breath. She has had no nausea, vomiting or diarrhea. Related Data Home Medications Medication Instructions Recorded Confirmed fluoxetine 40 mg capsule (Prozac) 20 mg PO QDAY ##0 01/30/13 ibuprofen 200 mg capsule (Advil 200 mg PO ##0 11/11/16 Liqui-Gel) Previous Rx's Medication Instructions Recorded propranolol 20 mg tablet 20 mg PO BID #60 tabs 10/21/16 ketorolac 10 mg tablet 10 mg PO Q6HP PRN #20 tabs 11/11/16 hydrocodone 5 mg-acetaminophen 325 1 tab PO Q4HP PRN #15 tabs 11/20/16 mg tablet ([place]) phenytoin sodium extended 100 mg 500 mg PO SEE INSTRUCTIONS #125 12/23/16 capsule (Dilantin Extended) tabs divalproex 500 mg tablet,extended 0 PO SEE INSTRUCTIONS #100 tabs 12/21/17 release 24 hr (Depakote ER) Allergies Allergy/AdvReac Type Severity Reaction Status Date / Time codeine [CODEINE] Allergy Unknown Verified 04/21/23 04:54 oxycodone [OXYCODONE] Allergy Unknown Verified 04/21/23 04:54 Review of Systems Review of Systems Narrative: GENERAL: See HPI HEENT: See HPI RESPIRATORY: See HPI CARDIOVASCULAR: Denies chest pain, palpitations, orthopnea, edema, GASTROINTESTINAL: Denies nausea, vomiting, abdominal pain, diarrhea, constipation, melena. : Denies dysuria, frequency, incontinence, hematuria, urinary retention. MUSCULOSKELETAL: denies weakness, joint pain, or bony pain SKIN: Denies rash, skin lesions, or other NEUROLOGIC: Denies weakness, headache, numbness, change in speech, confusion, seizures, incoordination. PSYCHIATRIC: No concerning psychosocial issues. 12 point review of systems is negative except for those stated above Patient History Social History Smoking Status: Current every day smoker Smoking Status: Current every day smoker tobacco type: cigarettes Substance Use Type: does not use Exam Narrative Exam Narrative: GENERAL: [62] year old patient appears stated age. Well-developed patient, in mild distress. HEAD: Atraumatic. Normocephalic. EYES: Pupils equal round and reactive. Extraocular motions intact. No scleral icterus. No injection or drainage. ENT: Nose without bleeding, purulent drainage. Throat without erythema, tonsillar hypertrophy or exudate. Airway patent. NECK: Trachea midline. Non tender CARDIOVASCULAR: Regular rate and rhythm without murmurs, gallops, or rubs. RESPIRATORY: Clear to auscultation. Breath sounds equal bilaterally. No wheezes, rales, or rhonchi. GASTROINTESTINAL: Abdomen soft, non-tender, nondistended. EXTREMITIES: No edema or joint tenderness. BACK: Nontender without deformity or crepitance. No flank tenderness. NEURO: AOx3. SKIN: No rash or erythema of visible areas Initial Vital Signs Initial Vital Signs: Vital Signs Temperature 97.5 F L 04/21/23 03:35 Pulse Rate 87 04/21/23 03:35 Respiratory Rate 16 04/21/23 03:35 Blood Pressure 104/56 L 04/21/23 03:35 Pulse Oximetry 100 04/21/23 03:35 Oxygen Delivery Method Room Air 04/21/23 03:35 Course Orders Ordered: ED Orders 04/21/23 03:37 EKG-12 Lead Stat 04/21/23 03:38 Urine Drug Screen, Rapid Stat 04/21/23 03:51 Complete Blood Count AUTO DIFF Stat Comprehensive Metabolic Panel Stat D Dimer Stat Ethanol (ETOH) Stat Lipase Stat Magnesium Stat NT-proBNP (BNP-Adult 18+) Stat Prothrombin Time INR Stat Troponin & CK Cardiac Panel Stat 04/21/23 04:22 CT angio chest PE protocol Stat CT head/brain wo con Stat 04/21/23 04:23 CT abdomen pelvis w con Stat Discontinued Medications Sodium Chloride (Normal Saline 0.9%) 1,000 mls @ 1,000 mls/hr IV BOLUS ONE Stop: 04/21/23 04:36 Last Admin: 04/21/23 03:53 Dose: 1,000 mls/hr Documented By: Vital Signs Vital signs: Vital Signs - 8 hr 04/21/23 03:35 04/21/23 03:37 04/21/23 03:38 Temperature 97.5 F L Pulse Rate 87 89 89 Respiratory Rate 16 Blood Pressure 104/56 L Pulse Oximetry 100 99 100 Oxygen Delivery Method Room Air 04/21/23 04:00 04/21/23 04:01 04/21/23 04:01 Temperature Pulse Rate 80 79 Respiratory Rate 15 16 Blood Pressure 128/60 Pulse Oximetry 100 100 Oxygen Delivery Method 04/21/23 04:30 04/21/23 04:30 04/21/23 04:59 Temperature Pulse Rate 78 84 Respiratory Rate 18 17 Blood Pressure 109/54 L Pulse Oximetry 100 100 Oxygen Delivery Method 04/21/23 05:00 04/21/23 05:00 Temperature Pulse Rate 79 Respiratory Rate 16 Blood Pressure 129/62 Pulse Oximetry 99 Oxygen Delivery Method Medical Decision Making Lab Data 04/21/23 03:51 04/21/23 03:51 Labs: Lab Results 04/21/23 04/21/23 04/21/23 Range/Units 03:51 03:51 03:51 WBC 6.2 (4.5-11.0) X10^3/uL RBC 4.10 (4.0-5.2) X10^6/uL Hgb 12.1 (12.0-16.0) g/dL Hct 35.2 L (36-46) % MCV 85.7 (80-100) fL MCH 29.4 (26-34) PG MCHC 34.3 (30-36) % RDW 14.1 (11.6-14.8) % Plt Count 268 (150-400) X10^3/uL Neut % (Auto) 68.6 (50-75) % Lymph % (Auto) 22.8 L (25-40) % [facility] % (Auto) 6.2 (3-14) % Eos % (Auto) 1.2 L (2-4) % Baso % (Auto) 1.2 (0-2) % Neut # (Auto) 4200 (7938-8795) /uL Lymph # (Auto) 1400 (0511-9380) /uL [facility] # (Auto) 400 (0-900) /uL Eos # (Auto) 100 (0-450) /uL Baso # (Auto) 100 (0-100) /uL PT 15.4 H (10.1-12.7) SECONDS INR 1.3 (0.9-1.3) D-Dimer 753 H (<500) ng/ml Sodium 139 (137-145) mmol/L Potassium 3.4 (3.4-5.1) mmol/L Chloride 102 (98-107) mmol/L Carbon Dioxide 29 (22-32) mmol/L BUN 12 (7-17) mg/dL Creatinine 0.50 L (0.52-1.04) mg/dL Estimated GFR > 60 (>60) mL/min BUN/Creatinine Ratio 24.0 H (6-22) Glucose 104 (80-110) mg/dL Calcium 9.3 (8.4-10.2) mg/dL Magnesium 2.2 (1.6-2.3) mg/dL Total Bilirubin 0.7 (0.2-1.3) mg/dL AST 39 H (14-36) IU/L ALT 23 (<35) IU/L Alkaline Phosphatase 119 (38-126) U/L Total Creatine Kinase 529 H (30-135) U/L CK-MB (CK-2) TNP Troponin I < 0.012 (0.01-0.034) ng/mL NT-Pro-B Natriuret Pep 50 (<125) pg/mL Total Protein 7.3 (6.3-8.2) g/dL Albumin 4.1 (3.5-5.0) g/dL Globulin 3.2 (1.7-4.1) g/dL Albumin/Globulin Ratio 1.3 (1.0-2.8) Lipase 155 (23-300) U/L U Opiates 300ng/mL cut (Negative) Ur Oxycodone Screen (Negative) Urine Methadone Screen (Negative) Ur Barbiturates Screen (Negative) U Tricyclic Antidepress (Negative) Ur Phencyclidine Scrn (Negative) Ur Amphetamines Screen (Negative) U Methamphetamines Scrn (Negative) Ur MDMA Scrn (Ecstasy) (Negative) U Benzodiazepines Scrn (Negative) Urine Cocaine Screen (Negative) U Marijuana (THC) Screen (Negative) Ethyl Alcohol ( - 10) mg/dL 04/21/23 04/21/23 Range/Units 03:51 05:30 WBC (4.5-11.0) X10^3/uL RBC (4.0-5.2) X10^6/uL Hgb (12.0-16.0) g/dL Hct (36-46) % MCV (80-100) fL MCH (26-34) PG MCHC (30-36) % RDW (11.6-14.8) % Plt Count (150-400) X10^3/uL Neut % (Auto) (50-75) % Lymph % (Auto) (25-40) % [facility] % (Auto) (3-14) % Eos % (Auto) (2-4) % Baso % (Auto) (0-2) % Neut # (Auto) (7956-2097) /uL Lymph # (Auto) (5269-1381) /uL [facility] # (Auto) (0-900) /uL Eos # (Auto) (0-450) /uL Baso # (Auto) (0-100) /uL PT (10.1-12.7) SECONDS INR (0.9-1.3) D-Dimer (<500) ng/ml Sodium (137-145) mmol/L Potassium (3.4-5.1) mmol/L Chloride (98-107) mmol/L Carbon Dioxide (22-32) mmol/L BUN (7-17) mg/dL Creatinine (0.52-1.04) mg/dL Estimated GFR (>60) mL/min BUN/Creatinine Ratio (6-22) Glucose (80-110) mg/dL Calcium (8.4-10.2) mg/dL Magnesium (1.6-2.3) mg/dL Total Bilirubin (0.2-1.3) mg/dL AST (14-36) IU/L ALT (<35) IU/L Alkaline Phosphatase (38-126) U/L Total Creatine Kinase (30-135) U/L CK-MB (CK-2) Troponin I (0.01-0.034) ng/mL NT-Pro-B Natriuret Pep (<125) pg/mL Total Protein (6.3-8.2) g/dL Albumin (3.5-5.0) g/dL Globulin (1.7-4.1) g/dL Albumin/Globulin Ratio (1.0-2.8) Lipase (23-300) U/L U Opiates 300ng/mL cut Negative (Negative) Ur Oxycodone Screen Negative (Negative) Urine Methadone Screen Negative (Negative) Ur Barbiturates Screen Negative (Negative) U Tricyclic Antidepress Positive H (Negative) Ur Phencyclidine Scrn Negative (Negative) Ur Amphetamines Screen Negative (Negative) U Methamphetamines Scrn Negative (Negative) Ur MDMA Scrn (Ecstasy) Negative (Negative) U Benzodiazepines Scrn Negative (Negative) Urine Cocaine Screen Negative (Negative) U Marijuana (THC) Screen Negative (Negative) Ethyl Alcohol < 10 ( - 10) mg/dL Urine Dip Bedside Urine Glucose Negative Bedside Urine Bilirubin - Negative Bedside Urine Ketone +/- 5 Urine Specific [place] 1.015 Bedside Urine Occult Blood - Negative Bedside Urine pH 6 Bedside Urine Protein - Negative Bedside Urine Urobilinogen - Negative Bedside Urine Nitrite - Negative Bedside Urine Leukocytes - Negative Esterase Point of care testing: Urine Dip Bedside Urine Glucose Negative Bedside Urine Bilirubin - Negative Bedside Urine Ketone +/- 5 Urine Specific [place] 1.015 Bedside Urine Occult Blood - Negative Bedside Urine pH 6 Bedside Urine Protein - Negative Bedside Urine Urobilinogen - Negative Bedside Urine Nitrite - Negative Bedside Urine Leukocytes - Negative Esterase MDM Narrative Medical decision making narrative: [62] year old patient presents with various symptoms including occasional dizziness, bilateral flank pain and mild upper respiratory symptoms Multiple etiologies for patient's symptoms considered including, but not limited to: [Viral etiology versus pneumonia versus pulmonary embolism versus dehydration versus intracranial abnormality] Prior Charts reviewed in our EMR Primary Historian: patient Labs reviewed and interpreted by myself: No leukocytosis or left shift, no signs of anemia, D-dimer is above age corrected cutoff, will pursue angiography to rule out PE Imaging reviewed: Head CT without acute findings, CT angiogram of chest without evidence of pulmonary embolism or pneumonia, abdomen and pelvis without acute findings, there 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 Patient's symptoms improved over duration of stay with above-stated therapies. She is speaking clearly without slurring words, ambulatory through the department after receiving fluids. History and physical exam are reassuring and there are no significant abnormalities that would obviously require specific or immediate intervention. Multiple diagnoses considered as noted above. She is no evidence of stroke or intracranial hemorrhage. No evidence myocardial infarction, pulmonary embolism, pneumonia or pericardial effusion. No abnormal findings on abdomen and pelvis. There is mention of an occluded stent on the abdomen pelvis CT, however patient has no pain, swelling, redness or neurovascular change in her extremities Findings and discharge diagnosis discussed with patient/family followed by verb alization of understanding Return precautions discussed with patient/family whom verbalize understanding of diagnosis and plan Discharge Plan Departure Patient Disposition: Home Clinical Impression: Dizziness, Acute dehydration Instructions: DI for Dizziness-Nonvertigo Activity Restrictions/Additional Instructions: *You have been diagnosed with [dizziness, generalized weakness, dehydration] *What to do: *Please continue to take your regular medications as directed. *Please follow up with your primary care provider in 2-3 days, call for an appointment. Let them know you were seen in the Emergency Department and that we ask that you be seen in follow up. We will electronically transmit a record of today's note if your PCP is in our system *If you do not have a primary care provider please contact the [facility] Resource line at [phone]. They will ask some questions about your medical history and help get you set up with a doctor in the community. *Return to Emergency Department if you should have any new, worsening or concerning symptoms, such as [fever greater than 101 F, shaking chills, worsening pain, persistent vomiting or other bothersome symptoms] Prescriptions: No Action fluoxetine [Prozac] 40 MG capsule 20 mg PO QDAY Qty: 0 propranolol 20 MG tablet 20 mg PO BID Qty: 60 3RF ibuprofen [Advil Liqui-Gel] 200 MG capsule 200 mg PO Qty: 0 ketorolac 10 MG tablet 10 mg PO Q6HP PRNQty: 20 0RF hydrocodone-acetaminophen [[place]] 5 MG/325 MG tablet 1 tab PO Q4HP PRNQty: 15 0RF phenytoin sodium extended [Dilantin Extended] 100 MG capsule 500 mg PO SEE INSTRUCTIONS Qty: 125 12RF divalproex [Depakote ER] 500 MG tablet extended release 24 hr 0 PO SEE INSTRUCTIONS Qty: 100 5RF Referrals: Miscellaneous,Doctor, MD [Primary Care Provider] - Stand Alone Forms: Patient Portal/API
[2023-04-21 04:10] LABS: Alanine Aminotransferase 23 IU/L (<35); Albumin 4.1 g/dL (3.5-5.0); Albumin Globulin Ratio 1.3 (1.0-2.8); Alkaline Phosphatase 119 U/L (38-126); Aspartate Aminotransferase 39 IU/L (14-36); Bilirubin Total 0.7 mg/dL (0.2-1.3); Blood Urea Nitrogen 12 mg/dL (7-17); Calcium 9.3 mg/dL (8.4-10.2); Carbon Dioxide 29 mmol/L (22-32); Chloride 102 mmol/L (98-107); Creatine Kinase 529 U/L (30-135); Estimated Glomerular Filt Rate > 60 mL/min (>60); Globulin 3.2 g/dL (1.7-4.1); Glucose 104 mg/dL (80-110); HEMOLYSIS < 15 (0-50); Lipase 155 U/L (23-300); Magnesium 2.2 mg/dL (1.6-2.3); Potassium 3.4 mmol/L (3.4-5.1); Sodium 139 mmol/L (137-145); Total Protein 7.3 g/dL (6.3-8.2)
[2023-04-21 04:11] LABS: Ethanol (ETOH) < 10 mg/dL
[2023-04-21 04:22] LABS: NT-proBNP (BNP-Adult 18+) 50 pg/mL (<125); Troponin I < 0.012 ng/mL (0.01-0.034)
--- NOTE | 2023-04-21 04:22 | DI.CT.S_ITS ---
PROCEDURE: CT ANGIO CHEST PE PROTOCOL INDICATIONS: CRITICAL D DIMER TECHNIQUE: After the administration of intravenous contrast, 2 mm thick sections acquired from the pulmonary apices to the posterior costophrenic angles. 3-dimensional maximum intensity projection (MIP) coronal and sagittal reformats were then acquired through the thorax. For radiation dose reduction, the following was used: automated exposure control, adjustment of mA and/or kV according to patient size. COMPARISON: [facility], CT, CT ABDOMEN PELVIS W CON, 04/21/2023, 4:36. FINDINGS: Image quality: Excellent. Pulmonary arteries: Pulmonary arteries are normal in size, and demonstrate no intraluminal filling defects to suggest central pulmonary embolism. Lungs and pleura: Lungs are clear. No pleural effusions or pneumothorax. Central and peripheral airways are patent. Mediastinum: Heart size is normal, without pericardial effusion. Mild coronary artery calcification. No mediastinal or hilar adenopathy. Thoracic aorta is normal in caliber and enhancement. Esophagus is normal in caliber. Small hiatal hernia. Bones and chest wall: No suspicious bony lesions. Ribs and thoracic spine appear intact throughout. The left thyroid lobe is enlarged and contains a 1.8 x 1.0 cm nodule. No axillary or supraclavicular adenopathy. Abdomen: Visualized upper abdominal solid organs appear normal in the early arterial phase of enhancement. IMPRESSION: 1. No evidence for pulmonary embolism. 2. Left thyroid nodule. Recommend thyroid ultrasound for follow-up. No significant discrepancy with the [facility] shift lead radiology preliminary report. Dictated by: Alaina Watkins M.D. on 04/21/2023 at 7:51 Approved by: Alaina Watkins M.D. on 04/21/2023 at 7:54
--- NOTE | 2023-04-21 04:22 | DI.CT.S_ITS ---
PROCEDURE: CT HEAD/BRAIN WO CON INDICATIONS: DIZZYNESS TECHNIQUE: Noncontrast 4.5 mm thick angled axial sections acquired from the foramen magnum to the vertex, with coronal and sagittal reformats. For radiation dose reduction, the following was used: automated exposure control, adjustment of mA and/or kV according to patient size. COMPARISON: [facility], CT, HEAD WITHOUT CONTRAST, 03/17/2017, 11:40. [facility], CT, HEAD WITHOUT CONTRAST, 11/20/2016, 14:14. FINDINGS: Image quality: Excellent. CSF spaces: Basal cisterns are patent. No extra-axial fluid collections. The ventricles are symmetric in size and shape. Brain: No intracranial bleeds or masses. There is cerebral volume loss for age, with resultant ventricular and sulcal prominence. There are periventricular and deep white matter chronic small vessel ischemic changes. There is intracranial internal carotid artery atherosclerosis. Skull and face: Calvarium and visualized facial bones appear intact, without suspicious lesions. Sinuses: Visualized sinuses and mastoids are clear. IMPRESSION: 1. CT head without acute intracranial abnormalities or acute calvarial fractures. 2. Age-related senescent changes and sequela of chronic small vessel ischemic disease. 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 Dictated by: Gabriel Gilbert M.D. on 04/21/2023 at 7:19 Approved by: Gabriel Gilbert M.D. on 04/21/2023 at 7:20
--- NOTE | 2023-04-21 04:23 | DI.CT.S_ITS ---
PROCEDURE: CT ABDOMEN PELVIS W CON INDICATIONS: Bilateral flank pain TECHNIQUE: After the administration of IV contrast, axial sections were acquired from the lung bases to the pubic symphysis. Coronal and sagittal reformats were performed. For radiation dose reduction, the following was used: automated exposure control, adjustment of mA and/or kV according to patient size. COMPARISON: [facility], CT, KIDNEY/ URETER/BLADDER, 01/09/2011, 13:32. FINDINGS: Image quality: Excellent. Lung bases: Unremarkable. Heart: No significant findings. ABDOMEN: Liver: Unremarkable. Gallbladder: There are gallstones. No gallbladder wall thickening or pericholecystic fluid. Biliary ducts: Unremarkable. Pancreas: Unremarkable. Spleen: Unremarkable. Adrenal Glands: Unremarkable. Kidneys and Ureters: Indeterminate hypodensities in the left kidney, probably a cyst. Stomach and Bowel: Stomach, small bowel loops, and colon are unremarkable. Diverticulosis without diverticulitis. Peritoneum: No abnormal intraperitoneal fluid. No free air. Ventral Wall: No hernia. Abdominal Nodes: No retroperitoneal or mesenteric adenopathy by size criteria. Vessels: Aorta and inferior vena cava are normal in size. Severe atherosclerotic calcifications. There is a stent in the left, iliac artery. PELVIS: Pelvic Organs: Unremarkable. Bladder: Unremarkable. Pelvic Nodes: No enlarged lymph nodes. Miscellaneous: No inguinal hernias are seen. Bones: Unremarkable. IMPRESSION: 1. No acute inflammatory process in abdomen or pelvis. 2. Cholelithiasis. 3. Mild diverticulosis. No diverticulitis. No significant discrepancy with the warehouse worker 2nd shift radiology preliminary report. Dictated by: Alaina Watkins M.D. on 04/21/2023 at 7:45 Approved by: Alaina Watkins M.D. on 04/21/2023 at 7:50
[2023-04-21 05:42] LABS: UR Morphine/Opiate cutoff 300 Negative (Negative); Ur Creatinine Normal (Normal); Ur Specific Gravity Normal (Normal); Urine Amphetamines Negative (Negative); Urine Barbiturates Negative (Negative); Urine Benzodiazepines Negative (Negative); Urine Cocaine Negative (Negative); Urine MDMA Negative (Negative); Urine Methadone Negative (Negative); Urine Methamphetamines Negative (Negative); Urine Oxycodone Negative (Negative); Urine Phencyclidine Negative (Negative); Urine Tetrahydrocannabinol Negative (Negative); Urine Tricyclic Antidepressant Positive (Negative); Urine pH Normal (Normal)
== END 2023-04-21 06:06 | disposition home or self-care (01) ==
PROVIDERS: Emergency Provider Emergency Medicine
DX: R42 Dizziness and giddiness (principal); E86.0 Dehydration; R53.1 Weakness; R07.9 Chest pain, unspecified
CPT/HCPCS: 36415; 70450; 71275; 74177; 80053; 80305; 80320; 81003; 82550; 83690; 83735; 83880; 84484; 85025; 85379; 85610; 93005; 93010; 96360; 99284; Q9967

== ENCOUNTER 2025-03-04 00:54 | Emergency (ER) | payer MEDICARE, MEDICAID, SELFPAY ==
[2025-03-04 00:59] VITALS: BP 128/60; PULSE 78; RESP 18; TEMP 36.9; O2SAT 97
--- NOTE | 2025-03-04 01:05 | ED_ITS ---
HPI - General Adult General Chief complaint: Seizure Stated complaint: seizure aura Time Seen by Provider: 03/04/25 00:56 History of Present Illness HPI narrative: 64-year-old woman with a history of posttraumatic epilepsy for which she takes topiramate 150 mg b.i.d. and Keppra 500 mg in the morning and 750 mg in the evening, migraines, COPD, hypertension, peripheral arterial disease, alcohol use disorder, methamphetamine use disorder, presents via EMS today [facility] and feeling that she was having an aura sensation that was going to lead to a seizure. She states she has been staying in [place] recently but is no longer staying there. Was planning to get a hotel in [place] with the [facility] location no rooms were available, she [facility] available so [facility]. She does smell of alcohol currently. She reports last seizure she had was about 3 weeks ago and last medications were somewhere in the last 24-48 hours. She is somewhat confrontational and belligerent with interacting with staff in regard to any questions. She describes her head feeling as if 1 spike is high and 1 spike is low with the head fullness and headache. Related Data Home Medications Medication Instructions Recorded Confirmed fluoxetine 40 mg capsule (Prozac) 20 mg PO QDAY ##0 01/30/13 ibuprofen 200 mg capsule (Advil 200 mg PO ##0 11/11/16 Liqui-Gel) Previous Rx's Medication Instructions Recorded propranolol 20 mg tablet 20 mg PO BID #60 tabs 10/21/16 ketorolac 10 mg tablet 10 mg PO Q6HP PRN #20 tabs 11/11/16 hydrocodone 5 mg-acetaminophen 325 1 tab PO Q4HP PRN #15 tabs 11/20/16 mg tablet ([place]) phenytoin sodium extended 100 mg 500 mg (5 x 100 mg) PO SEE 12/23/16 capsule (Dilantin Extended) INSTRUCTIONS #125 tabs divalproex 500 mg tablet,extended 0 PO SEE INSTRUCTIONS #100 tabs 12/21/17 release 24 hr (Depakote ER) levetiracetam 500 mg tablet 500 mg PO .HS #30 tabs 03/04/25 (Keppra) levetiracetam 750 mg tablet 750 mg PO DAILY #30 tabs 03/04/25 (Keppra) topiramate 100 mg tablet 150 mg (1.5 x 100 mg) PO BID #90 03/04/25 tabs Allergies Allergy/AdvReac Type Severity Reaction Status Date / Time codeine [CODEINE] Allergy Unknown Verified 04/21/23 04:54 oxycodone [OXYCODONE] Allergy Unknown Verified 04/21/23 04:54 Review of Systems Review of Systems Narrative: Tiny periumbilical ventral hernia contains fat with surrounding edema may reflect incarcerated fat. No evidence of a bowel involvement Patient History Medical History (Updated 03/04/25 @ 01:57 by Courtney Schultz MD) Hyperlipidemia History of kidney stones Peripheral arterial disease Hypertension COPD (chronic obstructive pulmonary disease) Methamphetamine abuse Continuous tobacco abuse Alcohol use disorder Migraine with aura Post-traumatic epilepsy tobacco type: cigarettes Exam Initial Vital Signs Initial Vital Signs: Vital Signs Temperature 98.5 F 03/04/25 00:59 Pulse Rate 78 03/04/25 00:59 Respiratory Rate 18 03/04/25 00:59 Blood Pressure 128/60 03/04/25 00:59 Pulse Oximetry 97 03/04/25 00:59 Oxygen Delivery Method Room Air 03/04/25 00:59 General: Chronically ill-appearing, somewhat disheveled, smells of alcohol, belligerent and confrontational, able to speak in complete sentences HEENT: Moist mucous membranes, normal sclera with reactive pupils, Respiratory: Lungs with minor scattered wheeze, no rhonchi Cardiac: Regular rate and rhythm no murmurs no bruits Abdomen: Soft, nontender, no rebound or guarding, no flank pain Skin: Peripheral skin and finger changes consistent with exposure to the elements for extended period periods of time. Neurologic: Grossly neurologically intact with no obvious asymmetries or abnormalities, she is not hyperreflexic Extremities: No trauma, no lower extremity edema Psych: Fluent speech, angry and frustrated Course Orders Ordered: ED Orders 03/04/25 01:06 Urinalysis and Microscopic Stat 03/04/25 01:13 Complete Blood Count AUTO DIFF Stat Comprehensive Metabolic Panel Stat Ethanol (ETOH) Stat Lipase Stat Magnesium Stat Discontinued Medications Diazepam (Diazepam 10 Mg/2 Ml Syringe) 5 mg IV NOW ONE Stop: 03/04/25 02:11 Last Admin: 03/04/25 02:17 Dose: 5 mg Documented By: RLC Sodium Chloride (Normal Saline 0.9%) 1,000 mls @ 1,000 mls/hr IV BOLUS ONE Stop: 03/04/25 02:04 Last Infusion: 03/04/25 02:23 Dose: Infused Documented By: Admin: 03/04/25 01:14 Dose: 1,000 mls/hr Documented By: JADE Levetiracetam 1,000 mg/ Sodium (Chloride) 110 mls @ 440 mls/hr IV NOW ONE Stop: 03/04/25 01:06 Last Infusion: 03/04/25 01:44 Dose: Infused Documented By: Admin: 03/04/25 01:15 Dose: 440 mls/hr Documented By: JADE Ketorolac Tromethamine (Ketorolac 30 Mg/Ml Vial) 15 mg IV NOW ONE Stop: 03/04/25 02:11 Last Admin: 03/04/25 02:16 Dose: 15 mg Documented By: ANNA Ondansetron HCl (Ondansetron 4 Mg/2 Ml Inj) 4 mg IV NOW ONE Stop: 03/04/25 01:06 Last Admin: 03/04/25 01:15 Dose: 4 mg Documented By: JADE Vital Signs Vital signs: Vital Signs - 8 hr 03/04/25 00:59 03/04/25 02:21 Temperature 98.5 F Pulse Rate 78 77 Respiratory Rate 18 16 Blood Pressure 128/60 111/54 L Pulse Oximetry 97 96 Oxygen Delivery Method Room Air Room Air Medical Decision Making Lab Data 03/04/25 01:13 03/04/25 01:13 Labs: Lab Results 03/04/25 Range/Units 01:13 WBC 4.8 (4.5-11.0) X10^3/uL RBC 4.18 (4.0-5.2) X10^6/uL Hgb 12.4 (12.0-16.0) g/dL Hct 36.6 (36-46) % MCV 87.4 (80-100) fL MCH 29.6 (26-34) PG MCHC 33.9 (30-36) % RDW 13.6 (11.6-14.8) % Plt Count 208 (150-400) X10^3/uL Neut % (Auto) 60.4 (50-75) % Lymph % (Auto) 30.4 (25-40) % Ida % (Auto) 6.4 (3-14) % Eos % (Auto) 1.2 L (2-4) % Baso % (Auto) 1.6 (0-2) % Neut # (Auto) 2900 (3439-4925) /uL Lymph # (Auto) 1500 (8766-1993) /uL Ida # (Auto) 300 (0-900) /uL Eos # (Auto) 100 (0-450) /uL Baso # (Auto) 100 (0-100) /uL Sodium 143 (137-145) mmol/L Potassium 3.7 (3.4-5.1) mmol/L Chloride 109 H (98-107) mmol/L Carbon Dioxide 22 (22-32) mmol/L BUN 12 (7-17) mg/dL Creatinine 0.67 (0.52-1.04) mg/dL Estimated GFR > 60 (>60) mL/min BUN/Creatinine Ratio 17.9 (6-22) Glucose 102 (80-110) mg/dL Calcium 9.5 (8.4-10.2) mg/dL Magnesium 2.2 (1.6-2.3) mg/dL Total Bilirubin 0.6 (0.2-1.3) mg/dL AST 21 (14-36) IU/L ALT 14 (<35) IU/L Alkaline Phosphatase 74 (38-126) U/L Total Protein 6.9 (6.3-8.2) g/dL Albumin 4.3 (3.5-5.0) g/dL Globulin 2.6 (1.7-4.1) g/dL Albumin/Globulin Ratio 1.7 (1.0-2.8) Lipase 222 (23-300) U/L Ethyl Alcohol 49 H ( - 10) mg/dL Point of Care Testing Glucose POC 90 Point of care testing: Point of Care Testing Glucose POC 90 MDM Narrative Medical decision making narrative: CC:I have a seizure aura Complicating co-morbidities: Posttraumatic epilepsy, alcohol use disorder, medication noncompliance, housing instability, Data collected from: patient Social determinants of health that may influence the patients condition: [facility], is unclear that she has any type of permanent housing or access to any of her prescribed medications Medical records reviewed: Records from [facility], recent visits to [facility] have not been since 2002. There is an [facility]NESTO report showing multiple recent visits to [facility] General Differential considered: Alcohol intoxication, at risk for seizure, medication noncompliance, migraine headache Exam documented above, pertinent findings include: Patient is intoxicated, belligerent, she is not hyperreflexic remainder of exam is essentially benign Lab Test results independently reviewed as above. Pertinent findings: CBC is unremarkable with no anemia Chemistries are reassuring, normal renal function, no or liver study abnormalities Lipase is appropriate Alcohol level is slightly elevated at 49 Treatments: 1 L of fluid, 1g of IV levetiracetam, 4 mg of IV Zofran Re-evaluations: 210am patient is feeling much better after fluids, Keppra and Zofran. She was still complaining of slight headache and also complains of muscle twitching. And she is having uncontrolled myoclonic jerks of her neck muscles. We will try IV Toradol as well as IV diazepam and re-evaluate Discussion: 64-year-old woman with a history of seizure disorder, difficulty in finding a hotel but states she has resources for hotels as well as calves. Minor amount of alcohol this evening. She is feeling better after medications, headache treatment and a dose of diazepam for myoclonic twitching. She has pulled out her IV at 4:00 a.m. and request that monitors be removed. We will help facilitate this she is clearly safe for discharge at this point. We will refill Keppra and topiramate per patient request, sending prescription to [facility]. Encouraged her to follow up with her primary care physician Discharge Plan Departure Patient Disposition: Home Clinical Impression: Seizure disorder Headache, migraine Qualifiers: Migraine type: unspecified Status migrainosus presence: without status migrainosus Intractability: not intractable Qualified Code(s): G43.909 - Migraine, unspecified, not intractable, without status migrainosus Alcohol intoxication Qualifiers: Complication of substance-induced condition: uncomplicated Qualified Code(s): F 10.920 - Alcohol use, unspecified with intoxication, uncomplicated Instructions: DI for Seizure Disorder -- Adult Activity Restrictions/Additional Instructions: I am glad you are feeling better. I am glad you are headache has improved and you did not have a seizure tonight. You were given 1g of IV Keppra, 1L of IV fluid, Toradol for your headache and diazepam for the muscle twitching. I have sent prescriptions for Keppra, 500 mg at night, 750 mg in the morning and topiramate 150 mg twice a day to [facility] in [place]. Because you are not sure of the doses these were the most recent doses that I could find documented for refilling. You do need to follow up with your primary care physician to make sure that you are in the rate doses and the remainder of your medications are also refilled. I wish you the best Prescriptions: New levetiracetam [Keppra] 750 mg tablet 750 mg PO DAILY Qty: 30 3RF levetiracetam [Keppra] 500 mg tablet 500 mg PO .HS Qty: 30 3RF topiramate 100 mg tablet 150 mg PO BID Qty: 90 3RF No Action fluoxetine [Prozac] 40 MG capsule 20 mg PO QDAY Qty: 0 propranolol 20 MG tablet 20 mg PO BID Qty: 60 3RF ibuprofen [Advil Liqui-Gel] 200 MG capsule 200 mg PO Qty: 0 ketorolac 10 MG tablet 10 mg PO Q6HP PRNQty: 20 0RF hydrocodone-acetaminophen [[place]] 5 MG/325 MG tablet 1 tab PO Q4HP PRNQty: 15 0RF phenytoin sodium extended [Dilantin Extended] 100 MG capsule 500 mg PO SEE INSTRUCTIONS Qty: 125 12RF divalproex [Depakote ER] 500 MG tablet extended release 24 hr 0 PO SEE INSTRUCTIONS Qty: 100 5RF Referrals: Miscellaneous,Doctor, MD [Primary Care Provider] - Stand Alone Forms: Patient Portal/API/Survey
[2025-03-04] MEDS: SODIUM CHLORIDE 0.9% 1,000 ML 1000 ML IV (01:14)
[2025-03-04] MEDS: levETIRAcetam 1,000 MG in SODIUM CHLORIDE 0.9% 100 ML 440 MG IV (01:15)
[2025-03-04] MEDS: ONDANSETRON 4 MG/2 ML INJ IV (01:15)
[2025-03-04 01:24] LABS: Add Manual Diff / Slide Review NO; Basophils Absolute Auto 100 /uL (0-100); Basophils Percent Auto 1.6 % (0-2); Eosinophils Absolute Auto 100 /uL (0-450); Eosinophils Percent Auto 1.2 % (2-4); Hematocrit 36.6 % (36-46); Hemoglobin 12.4 g/dL (12.0-16.0); Lymphocytes Absolute Auto 1500 /uL (1100-4500); Lymphocytes Percent Auto 30.4 % (25-40); Mean Corpuscular HGB Conc 33.9 % (30-36); Mean Corpuscular Hemoglobin 29.6 PG (26-34); Mean Corpuscular Volume 87.4 fL (80-100); Monocytes Absolute Auto 300 /uL (0-900); Monocytes Percent Auto 6.4 % (3-14); Neutrophils Absolute Auto 2900 /uL (1500-7000); Neutrophils Percent Auto 60.4 % (50-75); Platelet Count 208 X10^3/uL (150-400); Red Blood Cell Count 4.18 X10^6/uL (4.0-5.2); Red Cell Distribution Width 13.6 % (11.6-14.8); White Blood Cell Count 4.8 X10^3/uL (4.5-11.0)
[2025-03-04 01:33] LABS: Alanine Aminotransferase 14 IU/L (<35); Albumin 4.3 g/dL (3.5-5.0); Albumin Globulin Ratio 1.7 (1.0-2.8); Alkaline Phosphatase 74 U/L (38-126); Aspartate Aminotransferase 21 IU/L (14-36); BUN Creatinine Ratio 17.9 (6-22); Bilirubin Total 0.6 mg/dL (0.2-1.3); Blood Urea Nitrogen 12 mg/dL (7-17); Calcium 9.5 mg/dL (8.4-10.2); Carbon Dioxide 22 mmol/L (22-32); Chloride 109 mmol/L (98-107); Estimated Glomerular Filt Rate > 60 mL/min (>60); Ethanol (ETOH) 49 mg/dL; Globulin 2.6 g/dL (1.7-4.1); Glucose 102 mg/dL (80-110); HEMOLYSIS < 15 (0-50); Lipase 222 U/L (23-300); Magnesium 2.2 mg/dL (1.6-2.3); Potassium 3.7 mmol/L (3.4-5.1); Sodium 143 mmol/L (137-145); Total Protein 6.9 g/dL (6.3-8.2)
[2025-03-04] MEDS: KETOROLAC 30 MG/ML VIAL 15 MG IV (02:16)
[2025-03-04] MEDS: diazePAM 10 MG/2 ML SYRINGE 5 MG IV (02:17)
[2025-03-04 02:21] VITALS: BP 111/54; PULSE 77; RESP 16; O2SAT 96
[2025-03-04 02:30] VITALS: BP 98/52; PULSE 73; O2SAT 94
[2025-03-04 03:00] VITALS: BP 90/52; PULSE 72; O2SAT 94
[2025-03-04 03:30] VITALS: BP 91/54; PULSE 72; RESP 14; O2SAT 95
== END 2025-03-04 06:27 | disposition home or self-care (01) ==
PROVIDERS: Emergency Provider Emergency Medicine
DX: G40.909 Epilepsy, unspecified, not intractable, without status epilepticus (principal); G43.909 Migraine, unspecified, not intractable, without status migrainosus; F10.920 Alcohol use, unspecified with intoxication, uncomplicated
CPT/HCPCS: 36415; 80053; 80320; 83690; 83735; 85025; 96365; 96375; 99284; J1885; J1953; J2405; J3360

== ENCOUNTER 2025-03-13 01:23 | Emergency (ER) | payer MEDICARE, MEDICAID, SELFPAY ==
[2025-03-13] VITALS (52 sets, daily range): BP systolic 70–135; BP diastolic 43–80; PULSE 61–84; RESP 13–39; TEMP 36.2; O2SAT 94–100
--- NOTE | 2025-03-13 01:25 | ED_ITS ---
HPI - General Adult <Otoniel Virk DO - Last Filed: 03/13/25 05:45> General Chief complaint: Toxicology Problem Stated complaint: RIGOBERTO/etoh Time Seen by Provider: 03/13/25 01:24 History of Present Illness HPI narrative: 64-year-old female with a history of posttraumatic epilepsy on topiramate 150 mg b.i.d., Keppra 500 mg in the morning, was brought in by police for being found walking around, according to police they were called because the patient was drinking at a bar in [place] and patient was unable to tell the police where she lives. At time of initial evaluation patient intoxicated, she states that she was drinking prior to arrival but states that she just wants to be ?left alone patient states that she has a history of seizures but did not take any of her medications today. Patient belligerent, agitated, refusing to cooperate with exam therefore additional ROS HPI limited. Related Data Home Medications Medication Instructions Recorded Confirmed fluoxetine 40 mg capsule (Prozac) 20 mg PO QDAY ##0 01/30/13 ibuprofen 200 mg capsule (Advil 200 mg PO ##0 11/11/16 Liqui-Gel) Previous Rx's Medication Instructions Recorded propranolol 20 mg tablet 20 mg PO BID #60 tabs 10/21/16 ketorolac 10 mg tablet 10 mg PO Q6HP PRN #20 tabs 11/11/16 hydrocodone 5 mg-acetaminophen 325 1 tab PO Q4HP PRN #15 tabs 11/20/16 mg tablet (Mcintire) phenytoin sodium extended 100 mg 500 mg (5 x 100 mg) PO SEE 12/23/16 capsule (Dilantin Extended) INSTRUCTIONS #125 tabs divalproex 500 mg tablet,extended 0 PO SEE INSTRUCTIONS #100 tabs 12/21/17 release 24 hr (Depakote ER) levetiracetam 500 mg tablet 500 mg PO .HS #30 tabs 03/04/25 (Keppra) levetiracetam 750 mg tablet 750 mg PO DAILY #30 tabs 03/04/25 (Keppra) topiramate 100 mg tablet 150 mg (1.5 x 100 mg) PO BID #90 03/04/25 tabs Allergies Allergy/AdvReac Type Severity Reaction Status Date / Time codeine [CODEINE] Allergy Unknown Verified 04/21/23 04:54 oxycodone [OXYCODONE] Allergy Unknown Verified 04/21/23 04:54 Review of Systems <Otoniel Virk DO - Last Filed: 03/13/25 05:45> Review of Systems ROS Unobtainable: Unobtainable due to mental status/LOC Patient History <Otoniel Virk DO - Last Filed: 03/13/25 05:45> Medical History (Updated 03/13/25 @ 08:27 by Karina Bradshaw DO) Hyperlipidemia History of kidney stones Peripheral arterial disease Hypertension COPD (chronic obstructive pulmonary disease) Methamphetamine abuse Continuous tobacco abuse Alcohol use disorder Migraine with aura Post-traumatic epilepsy tobacco type: cigarettes Exam <Otoniel Virk DO - Last Filed: 03/13/25 05:45> Narrative Exam Narrative: General: Patient obviously inebriated, refusing to cooperate with the exam, well-developed, not in acute distress HEENT: Normocephalic, atraumatic, PERRLA, normal sclera, eyelids normal Neck: Active full range of motion, atraumatic Chest: Normal to inspection, negative crepitus, no overlying erythema ecchymosis Respiratory: Normal respiratory effort, not in acute respiratory distress, clear to auscultation bilaterally negative cough, wheeze, tachypnea, rhonchi, rales Cardiology: Regular rate rhythm negative gallop, murmur, rubs GI/: No tenderness to palpation, soft, non rigid, normal to inspection, exam deferred MSK: Full active range of motion in all 4 extremities, atraumatic, Skin: No rashes or lesions noted Neuro: Patient is moving all 4 extremities spontaneously, she was able to stand walk by herself with police Initial Vital Signs Initial Vital Signs: Vital Signs Blood Pressure 106/61 03/13/25 01:38 <Karina Bradshaw DO - Last Filed: 03/13/25 16:44> Initial Vital Signs Initial Vital Signs: Vital Signs Blood Pressure 106/61 03/13/25 01:38 Course <Otoniel Virk DO - Last Filed: 03/13/25 05:45> Orders Ordered: ED Orders 03/13/25 10:36 Consult to MOTOR LODGE CLERK - [employer] Stat Discontinued Medications Levetiracetam 1,000 mg/ Sodium (Chloride) 110 mls @ 440 mls/hr IV NOW ONE Stop: 03/13/25 01:38 Last Infusion: 03/13/25 02:24 Dose: Infused Documented By: Admin: 03/13/25 01:42 Dose: 440 mls/hr Documented By: CHANO Sodium Chloride (Normal Saline 0.9%) 1,000 mls @ 1,000 mls/hr IV BOLUS ONE Stop: 03/13/25 02:43 Last Infusion: 03/13/25 03:05 Dose: Infused Documented By: Admin: 03/13/25 01:44 Dose: 1,000 mls/hr Documented By: CHANO Sodium Chloride (Normal Saline 0.9%) 1,000 mls @ 1,000 mls/hr IV BOLUS ONE Stop: 03/13/25 03:34 Last Infusion: 03/13/25 04:50 Dose: Infused Documented By: Admin: 03/13/25 03:05 Dose: 1,000 mls/hr Documented By: CARLOS Lorazepam (Lorazepam 2 Mg/Ml Inj) 4 mg IV PRN PRN PRN Reason: Seizures Lorazepam (Lorazepam 2 Mg/Ml Inj) 2 mg IV NOW ONE Stop: 03/13/25 02:11 Last Admin: 03/13/25 02:13 Dose: 2 mg Documented By: CHANO Lorazepam (Lorazepam 2 Mg/Ml Inj) 2 mg IM NOW ONE Stop: 03/13/25 02:18 Last Admin: 03/13/25 01:37 Dose: 2 mg Documented By: CHANO Topiramate (Topiramate 100 Mg Tablet) 150 mg PO NOW ONE Stop: 03/13/25 05:43 Last Admin: 03/13/25 14:45 Dose: Not Given Documented By: RANULFO Vital Signs Vital signs: Vital Signs - 8 hr 03/13/25 09:00 03/13/25 09:00 03/13/25 09:30 Pulse Rate 66 65 Respiratory Rate 16 15 Blood Pressure 102/63 Pulse Oximetry 94 98 Oxygen Delivery Method 03/13/25 09:30 03/13/25 10:00 03/13/25 10:00 Pulse Rate 65 Respiratory Rate 15 Blood Pressure 102/64 106/66 Pulse Oximetry 98 Oxygen Delivery Method 03/13/25 10:30 03/13/25 10:30 03/13/25 11:00 Pulse Rate 63 Respiratory Rate 15 Blood Pressure 108/55 L 107/58 L Pulse Oximetry 99 Oxygen Delivery Method 03/13/25 11:00 03/13/25 11:30 03/13/25 11:30 Pulse Rate 61 62 Respiratory Rate 16 16 Blood Pressure 129/68 Pulse Oximetry 100 97 Oxygen Delivery Method 03/13/25 12:00 03/13/25 12:00 03/13/25 12:30 Pulse Rate 62 Respiratory Rate 28 H Blood Pressure 125/65 125/69 Pulse Oximetry 99 Oxygen Delivery Method 03/13/25 12:30 03/13/25 13:00 03/13/25 13:00 Pulse Rate 65 63 Respiratory Rate 24 Blood Pressure 132/67 Pulse Oximetry 99 98 Oxygen Delivery Method 03/13/25 13:30 03/13/25 13:30 03/13/25 14:15 Pulse Rate 67 81 Respiratory Rate 29 H 16 Blood Pressure 128/63 126/66 Pulse Oximetry 98 98 Oxygen Delivery Method Room Air <Karina Bradshaw DO - Last Filed: 03/13/25 16:44> Orders Ordered: ED Orders 03/13/25 10:36 Consult to MOTOR LODGE CLERK - Real Estate Broker Stat Discontinued Medications Levetiracetam 1,000 mg/ Sodium (Chloride) 110 mls @ 440 mls/hr IV NOW ONE Stop: 03/13/25 01:38 Last Infusion: 03/13/25 02:24 Dose: Infused Documented By: Admin: 03/13/25 01:42 Dose: 440 mls/hr Documented By: CHANO Sodium Chloride (Normal Saline 0.9%) 1,000 mls @ 1,000 mls/hr IV BOLUS ONE Stop: 03/13/25 02:43 Last Infusion: 03/13/25 03:05 Dose: Infused Documented By: Admin: 03/13/25 01:44 Dose: 1,000 mls/hr Documented By: CHANO Sodium Chloride (Normal Saline 0.9%) 1,000 mls @ 1,000 mls/hr IV BOLUS ONE Stop: 03/13/25 03:34 Last Infusion: 03/13/25 04:50 Dose: Infused Documented By: Admin: 03/13/25 03:05 Dose: 1,000 mls/hr Documented By: CARLOS Lorazepam (Lorazepam 2 Mg/Ml Inj) 4 mg IV PRN PRN PRN Reason: Seizures Lorazepam (Lorazepam 2 Mg/Ml Inj) 2 mg IV NOW ONE Stop: 03/13/25 02:11 Last Admin: 03/13/25 02:13 Dose: 2 mg Documented By: CHANO Lorazepam (Lorazepam 2 Mg/Ml Inj) 2 mg IM NOW ONE Stop: 03/13/25 02:18 Last Admin: 03/13/25 01:37 Dose: 2 mg Documented By: CHANO Topiramate (Topiramate 100 Mg Tablet) 150 mg PO NOW ONE Stop: 03/13/25 05:43 Last Admin: 03/13/25 14:45 Dose: Not Given Documented By: RANULFO Vital Signs Vital signs: Vital Signs - 8 hr 03/13/25 09:00 03/13/25 09:00 03/13/25 09:30 Pulse Rate 66 65 Respiratory Rate 16 15 Blood Pressure 102/63 Pulse Oximetry 94 98 Oxygen Delivery Method 03/13/25 09:30 03/13/25 10:00 03/13/25 10:00 Pulse Rate 65 Respiratory Rate 15 Blood Pressure 102/64 106/66 Pulse Oximetry 98 Oxygen Delivery Method 03/13/25 10:30 03/13/25 10:30 03/13/25 11:00 Pulse Rate 63 Respiratory Rate 15 Blood Pressure 108/55 L 107/58 L Pulse Oximetry 99 Oxygen Delivery Method 03/13/25 11:00 03/13/25 11:30 03/13/25 11:30 Pulse Rate 61 62 Respiratory Rate 16 16 Blood Pressure 129/68 Pulse Oximetry 100 97 Oxygen Delivery Method 03/13/25 12:00 03/13/25 12:00 03/13/25 12:30 Pulse Rate 62 Respiratory Rate 28 H Blood Pressure 125/65 125/69 Pulse Oximetry 99 Oxygen Delivery Method 03/13/25 12:30 03/13/25 13:00 03/13/25 13:00 Pulse Rate 65 63 Respiratory Rate 24 Blood Pressure 132/67 Pulse Oximetry 99 98 Oxygen Delivery Method 03/13/25 13:30 03/13/25 13:30 03/13/25 14:15 Pulse Rate 67 81 Respiratory Rate 29 H 16 Blood Pressure 128/63 126/66 Pulse Oximetry 98 98 Oxygen Delivery Method Room Air Medical Decision Making <Otoniel Virk DO - Last Filed: 03/13/25 05:45> Lab Data 03/13/25 01:45 03/13/25 01:45 Labs: Lab Results 03/13/25 03/13/25 03/13/25 Range/Units 01:45 01:55 01:55 WBC 4.1 L (4.5-11.0) X10^3/uL RBC 4.38 (4.0-5.2) X10^6/uL Hgb 12.9 (12.0-16.0) g/dL Hct 38.5 (36-46) % MCV 87.9 (80-100) fL MCH 29.4 (26-34) PG MCHC 33.4 (30-36) % RDW 14.1 (11.6-14.8) % Plt Count 196 (150-400) X10^3/uL Neut % (Auto) 49.4 L (50-75) % Lymph % (Auto) 41.4 H (25-40) % Chambers % (Auto) 5.5 (3-14) % Eos % (Auto) 1.5 L (2-4) % Baso % (Auto) 2.2 H (0-2) % Neut # (Auto) 2000 (0028-8512) /uL Lymph # (Auto) 1700 (9154-4890) /uL Chambers # (Auto) 200 (0-900) /uL Eos # (Auto) 100 (0-450) /uL Baso # (Auto) 100 (0-100) /uL Sodium 147 H (137-145) mmol/L Potassium 3.9 (3.4-5.1) mmol/L Chloride 112 H (98-107) mmol/L Carbon Dioxide 23 (22-32) mmol/L BUN 9 (7-17) mg/dL Creatinine 0.63 (0.52-1.04) mg/dL Estimated GFR > 60 (>60) mL/min BUN/Creatinine Ratio 14.3 (6-22) Glucose 107 (80-110) mg/dL Calcium 8.8 (8.4-10.2) mg/dL Magnesium 2.3 (1.6-2.3) mg/dL Total Bilirubin 0.4 (0.2-1.3) mg/dL AST 32 (14-36) IU/L ALT 15 (<35) IU/L Alkaline Phosphatase 72 (38-126) U/L Total Protein 7.0 (6.3-8.2) g/dL Albumin 4.2 (3.5-5.0) g/dL Globulin 2.8 (1.7-4.1) g/dL Albumin/Globulin Ratio 1.5 (1.0-2.8) Lipase 220 (23-300) U/L Urine Color Yellow Urine Appearance Clear Urine pH 5.5 TNP (4.5-8.0) Ur Specific [place] 1.010 (1.000-1.035) Urine Protein Negative (Negative) Urine Glucose (UA) Negative (Negative) g/dL Urine Ketones Negative (NEGATIVE) Urine Occult Blood Negative (Negative) Urine Nitrate Negative (Negative) Urine Bilirubin Negative (NEGATIVE) Urine Urobilinogen 0.2 (0.2) E.U./dL Ur Leukocyte Esterase Negative (NEGATIVE) Urine RBC None seen (0-5/HPF) Urine WBC None seen (0-5/HPF) Ur Squamous Epith Cells None seen (0-5/HPF) Urine Bacteria None seen (None) Ur Culture Indicated? Cult not indicated Vol Urine Centrifuged 10ml (spun) U Opiates 300ng/mL cut Negative (Negative) Ur Oxycodone Screen Negative (Negative) Urine Methadone Screen Negative (Negative) Ur Barbiturates Screen Negative (Negative) U Tricyclic Antidepress Negative (Negative) Ur Phencyclidine Scrn Negative (Negative) Ur Amphetamines Screen Negative (Negative) U Methamphetamines Scrn Negative (Negative) Ur MDMA Scrn (Ecstasy) Negative (Negative) U Benzodiazepines Scrn Positive H (Negative) Urine Cocaine Screen Negative (Negative) U Marijuana (THC) Screen Negative (Negative) Urine Specific [place] TNP Ethyl Alcohol 276 H ( - 10) mg/dL Ur Creatinine TNP Imaging Data CT scan - head: Radiologist's Impression: Preliminary read showing no acute intracranial finding CT - cervical spine: Radiologist's Impression: Preliminary read showing multilevel degenerative changes without evidence of acute fracture or malalignment, multiple thyroid nodules noted ECG Data Interpretation: EKG interpreted ED physician sinus 64 beats per minute QTC [address] changes no STEMI MDM Narrative Medical decision making narrative: 64-year-old female with a history of posttraumatic epilepsy on Keppra and topiramate, migraines, COPD, hypertension, PID, alcohol use disorders, drug abuse, presents with police for RIGOBERTO, according to the police she was sent by a taxi from [place] from a bar, however she was unable to tell the new autos delivery driver where she lived therefore police were called. At time of initial evaluation patient intoxicated, agitated, stating to leave her alone. She does endorse that she has a history of seizures but did not take any of her medications. She states that she just wants to be ?left alone and to sleep. Patient without any leukocytosis, Chem panel unremarkable, patient is urinalysis just consistent with benzos, patient has alcohol 276. 0147: Delayed charting given the fact that patient had possible seizure-like activity, patient rolled and fell out of the bed. Patient was not responding lasted for less than 5 minutes, did give 2 mg IM Ativan. Patient was protecting airway pulses intact, 1 g of Keppra odor, 1 L normal saline, lab work ordered and CT head and neck ordered given fall. 0155: Patient is speaking in full sentences protecting airway, patient does not appear to be postictal, she has no focal deficits 0210: Patient now with increased agitation, she is attempting to get up bed, she is verbally abusing the staff yelling profanities, patient will be gently medicated to ensure safety of staff as well as patient. 2 mg IV Ativan ordered. 0315: Patient asleep, patient with map greater than 60, possible transient hypotension secondary to alcohol consumption and benzo use here in the ED. we will continue to monitor, patient has already received 2 L normal saline 0445: Patient re-evaluated, still sleeping, patient is protecting airway, patient map now 73, will continue to monitor 0700: Patient was signed out to Dr. Bradshaw, patient still sleeping 2/2 to the ativan and ETOH. Patient has remained normotensive. patient to be discharged once clinically sober. Did order patients home oral topiramate. <Karina Bradshaw, - Last Filed: 03/13/25 16:44> Lab Data Labs: Lab Results 03/13/25 03/13/25 03/13/25 Range/Units 01:45 01:55 01:55 WBC 4.1 L (4.5-11.0) X10^3/uL RBC 4.38 (4.0-5.2) X10^6/uL Hgb 12.9 (12.0-16.0) g/dL Hct 38.5 (36-46) % MCV 87.9 (80-100) fL MCH 29.4 (26-34) PG MCHC 33.4 (30-36) % RDW 14.1 (11.6-14.8) % Plt Count 196 (150-400) X10^3/uL Neut % (Auto) 49.4 L (50-75) % Lymph % (Auto) 41.4 H (25-40) % Chambers % (Auto) 5.5 (3-14) % Eos % (Auto) 1.5 L (2-4) % Baso % (Auto) 2.2 H (0-2) % Neut # (Auto) 2000 (1167-5242) /uL Lymph # (Auto) 1700 (9783-5163) /uL Chambers # (Auto) 200 (0-900) /uL Eos # (Auto) 100 (0-450) /uL Baso # (Auto) 100 (0-100) /uL Sodium 147 H (137-145) mmol/L Potassium 3.9 (3.4-5.1) mmol/L Chloride 112 H (98-107) mmol/L Carbon Dioxide 23 (22-32) mmol/L BUN 9 (7-17) mg/dL Creatinine 0.63 (0.52-1.04) mg/dL Estimated GFR > 60 (>60) mL/min BUN/Creatinine Ratio 14.3 (6-22) Glucose 107 (80-110) mg/dL Calcium 8.8 (8.4-10.2) mg/dL Magnesium 2.3 (1.6-2.3) mg/dL Total Bilirubin 0.4 (0.2-1.3) mg/dL AST 32 (14-36) IU/L ALT 15 (<35) IU/L Alkaline Phosphatase 72 (38-126) U/L Total Protein 7.0 (6.3-8.2) g/dL Albumin 4.2 (3.5-5.0) g/dL Globulin 2.8 (1.7-4.1) g/dL Albumin/Globulin Ratio 1.5 (1.0-2.8) Lipase 220 (23-300) U/L Urine Color Yellow Urine Appearance Clear Urine pH 5.5 TNP (4.5-8.0) Ur Specific [place] 1.010 (1.000-1.035) Urine Protein Negative (Negative) Urine Glucose (UA) Negative (Negative) g/dL Urine Ketones Negative (NEGATIVE) Urine Occult Blood Negative (Negative) Urine Nitrate Negative (Negative) Urine Bilirubin Negative (NEGATIVE) Urine Urobilinogen 0.2 (0.2) E.U./dL Ur Leukocyte Esterase Negative (NEGATIVE) Urine RBC None seen (0-5/HPF) Urine WBC None seen (0-5/HPF) Ur Squamous Epith Cells None seen (0-5/HPF) Urine Bacteria None seen (None) Ur Culture Indicated? Cult not indicated Vol Urine Centrifuged 10ml (spun) U Opiates 300ng/mL cut Negative (Negative) Ur Oxycodone Screen Negative (Negative) Urine Methadone Screen Negative (Negative) Ur Barbiturates Screen Negative (Negative) U Tricyclic Antidepress Negative (Negative) Ur Phencyclidine Scrn Negative (Negative) Ur Amphetamines Screen Negative (Negative) U Methamphetamines Scrn Negative (Negative) Ur MDMA Scrn (Ecstasy) Negative (Negative) U Benzodiazepines Scrn Positive H (Negative) Urine Cocaine Screen Negative (Negative) U Marijuana (THC) Screen Negative (Negative) Urine Specific [place] TNP Ethyl Alcohol 276 H ( - 10) mg/dL Ur Creatinine TNP MDM Narrative Medical decision making narrative: 64-year-old female with a history of posttraumatic epilepsy on Keppra and topiramate, migraines, COPD, hypertension, PID, alcohol use disorders, drug abuse, presents with police for RIGOBERTO, according to the police she was sent by a taxi from [place] from a bar, however she was unable to tell the new autos delivery driver where she lived therefore police were called. At time of initial evaluation patient intoxicated, agitated, stating to leave her alone. She does endorse that she has a history of seizures but did not take any of her medications. She states that she just wants to be ?left alone and to sleep. Patient without any leukocytosis, Chem panel unremarkable, patient is urinalysis just consistent with benzos, patient has alcohol 276. 0147: Delayed charting given the fact that patient had possible seizure-like activity, patient rolled and fell out of the bed. Patient was not responding lasted for less than 5 minutes, did give 2 mg IM Ativan. Patient was protecting airway pulses intact, 1 g of Keppra odor, 1 L normal saline, lab work ordered and CT head and neck ordered given fall. 0155: Patient is speaking in full sentences protecting airway, patient does not appear to be postictal, she has no focal deficits 0210: Patient now with increased agitation, she is attempting to get up bed, she is verbally abusing the staff yelling profanities, patient will be gently medicated to ensure safety of staff as well as patient. 2 mg IV Ativan ordered. 0315: Patient asleep, patient with map greater than 60, possible transient hypotension secondary to alcohol consumption and benzo use here in the ED. we will continue to monitor, patient has already received 2 L normal saline 0445: Patient re-evaluated, still sleeping, patient is protecting airway, patient map now 73, will continue to monitor 0700: Patient was signed out to Dr. Bradshaw, patient still sleeping 2/2 to the ativan and ETOH. Patient has remained normotensive. patient to be discharged once clinically sober. Did order patients home oral topiramate. 03/13/25 Dr. Bradshaw, patient signed out to myself by Dr. Virk. Patient is seen and evaluated by myself. Labs, imaging and workup reviewed. Patient is sleeping initially was on O2 but this was turned off she does not been hypoxic. Rechecked at 10 30 5:00 a.m., patient is still sleepy but awakens little bit easier. She did have 4 mg of Ativan total overnight as well as alcohol. She was on O2 overnight but is been on room air for several hours. Seems to have improving mentation. Patient indicates that she has been taking her antiseizure medications although she was here on the and unclear from their report if she has been taking them. She was here for alcohol intoxication in the 04 of March as well. Recheck at 1340: Patient awakens easily, she is conversant. Her Treviño catheter was removed. Discussed she states she does have issues with housing and security. She did meet with MOTOR LODGE CLERK. Initially expressed some interest in detox but ultimately decided to return home. She was alert, appropriate and appears safe for discharge. Reviewed her findings from today. Discharge Plan Departure Patient Disposition: Home Clinical Impression: Seizure-like activity, Alcohol intoxication, Ground-level fall, Thyroid nodule Activity Restrictions/Additional Instructions: Please follow up with your primary care doctor. You have a thyroid nodule noted on your imaging. It is recommended have this evaluated with a thyroid ultrasound. Please talk with your primary care physician about this. Please make sure to continue your seizure medications. Please read the discharge instructions sheet carefully and bring all papers to all doctor follow-up visits, as it may contain information that your doctor may want to see. Disease processes change and evolve, if your symptoms worsen or if you develop any new symptoms that are concerning to you please return for evaluation. Your evaluation today does not show any evidence of any life- threatening/serious illnesses requiring admission to the hospital or surgery. Please follow-up with your doctor for re-evaluation in approximately 1 day. Seek immediate medical attention for any worrisome symptoms. *If you do not have a primary care provider please contact the [facility] Resource line at [phone]. They will ask some questions about your medical history and help get you set up with a doctor in the community. Prescriptions: No Action fluoxetine [Prozac] 40 MG capsule 20 mg PO QDAY Qty: 0 propranolol 20 MG tablet 20 mg PO BID Qty: 60 3RF ibuprofen [Advil Liqui-Gel] 200 MG capsule 200 mg PO Qty: 0 ketorolac 10 MG tablet 10 mg PO Q6HP PRNQty: 20 0RF hydrocodone-acetaminophen [Mcintire] 5 MG/325 MG tablet 1 tab PO Q4HP PRNQty: 15 0RF phenytoin sodium extended [Dilantin Extended] 100 MG capsule 500 mg PO SEE INSTRUCTIONS Qty: 125 12RF divalproex [Depakote ER] 500 MG tablet extended release 24 hr 0 PO SEE INSTRUCTIONS Qty: 100 5RF levetiracetam [Keppra] 750 mg tablet 750 mg PO DAILY Qty: 30 3RF levetiracetam [Keppra] 500 mg tablet 500 mg PO .HS Qty: 30 3RF topiramate 100 mg tablet 150 mg PO BID Qty: 90 3RF Referrals: Miscellaneous,Doctor, MD [Primary Care Provider] - Stand Alone Forms: Patient Portal/API/Survey
[2025-03-13] MEDS: LORazepam 2 MG/ML INJ IM (01:37)
--- NOTE | 2025-03-13 01:41 | EKG_ITS ---
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
--- NOTE | 2025-03-13 01:41 | DI.RAD.S_ITS ---
PROCEDURE: XR CHEST 1V INDICATIONS: seizure TECHNIQUE: One view of the chest was acquired. COMPARISON: [facility], CR, XR CHEST 2V, 03/28/2023, 0:08. FINDINGS: Surgical changes and devices: None. Lungs and pleura: Lungs are clear. No pleural effusions or pneumothorax. Mediastinum: Mediastinal contours appear normal. Heart size is normal. Bones and chest wall: No suspicious bony lesions. Overlying soft tissues appear unremarkable. IMPRESSION: No acute cardiopulmonary abnormality is seen. Findings are concordant with preliminary interpretation provided by [facility]. Approved by: Krysta Love M.D.,Ph.D. on 03/13/2025 at 8:19
[2025-03-13] MEDS: levETIRAcetam 1,000 MG in SODIUM CHLORIDE 0.9% 100 ML 440 MG IV (01:42)
--- NOTE | 2025-03-13 01:42 | DI.CT.S_ITS ---
PROCEDURE: CT HEAD/BRAIN WO CON INDICATIONS: trauma, fell out of bed, possible seizure TECHNIQUE: Noncontrast 4.5 mm thick angled axial sections acquired from the foramen magnum to the vertex, with coronal and sagittal reformats. For radiation dose reduction, the following was used: automated exposure control, adjustment of mA and/or kV according to patient size. COMPARISON: [facility], CT, CT HEAD/BRAIN WO CON, 04/21/2023, 4:36. FINDINGS: Image quality: Diagnostic. CSF spaces: Basal cisterns are patent. No extra-axial fluid collections. Ventricles are normal in size and shape. Brain: No midline shift. No intracranial mass effect or hemorrhage. [place]-white matter interface is normal. Skull and face: Calvarium and visualized facial bones are intact, without suspicious lesions. Sinuses: Visualized sinuses and mastoids are clear. IMPRESSION: No evidence acute intracranial process. Comment: Final report is concordant with preliminary interpretation provided by [facility]. Dictated by: Gabriel Herbert M.D. on 03/13/2025 at 7:35 Approved by: Gabriel Herbert M.D. on 03/13/2025 at 7:36
--- NOTE | 2025-03-13 01:43 | DI.CT.S_ITS ---
PROCEDURE: CT CERVICAL SPINE WO CON INDICATIONS: trauma TECHNIQUE: Noncontrast 3 mm thick sections acquired from the skull base to the T4 level. Sagittal and coronal reformats were then constructed. For radiation dose reduction, the following was used: automated exposure control, adjustment of mA and/or kV according to patient size. COMPARISON: None. FINDINGS: Image quality: Excellent. Bones: No fractures or dislocations. Mild cervical spondylosis Visualized superior ribs are intact. Soft tissues: Prevertebral soft tissues are normal in thickness. No paravertebral hematomas. No apical pneumothoraces. Multi nodular thyroid. Findings include a 1.7 cm left thyroid nodule. IMPRESSION: 1. No acute cervical fracture or dislocation. 2. Mild cervical spondylosis. 3. 1.7 cm left thyroid nodule. Consider nonemergent thyroid ultrasound for further evaluation. Comment: Final report is concordant with preliminary interpretation provided by [facility]. Dictated by: Gabriel Herbert M.D. on 03/13/2025 at 7:36 Approved by: Gabriel Herbert M.D. on 03/13/2025 at 7:37
[2025-03-13] MEDS: SODIUM CHLORIDE 0.9% 1,000 ML 1000 ML IV ×2 (01:44→03:05)
[2025-03-13 02:09] LABS: Add Manual Diff / Slide Review NO; Basophils Absolute Auto 100 /uL (0-100); Basophils Percent Auto 2.2 % (0-2); Eosinophils Absolute Auto 100 /uL (0-450); Eosinophils Percent Auto 1.5 % (2-4); Hematocrit 38.5 % (36-46); Hemoglobin 12.9 g/dL (12.0-16.0); Lymphocytes Absolute Auto 1700 /uL (1100-4500); Lymphocytes Percent Auto 41.4 % (25-40); Mean Corpuscular HGB Conc 33.4 % (30-36); Mean Corpuscular Hemoglobin 29.4 PG (26-34); Mean Corpuscular Volume 87.9 fL (80-100); Monocytes Absolute Auto 200 /uL (0-900); Monocytes Percent Auto 5.5 % (3-14); Neutrophils Absolute Auto 2000 /uL (1500-7000); Neutrophils Percent Auto 49.4 % (50-75); Platelet Count 196 X10^3/uL (150-400); Red Blood Cell Count 4.38 X10^6/uL (4.0-5.2); Red Cell Distribution Width 14.1 % (11.6-14.8); White Blood Cell Count 4.1 X10^3/uL (4.5-11.0)
[2025-03-13] MEDS: LORazepam 2 MG/ML INJ IV (02:13)
[2025-03-13 02:26] LABS: Appearance Urine UA CLEAR; Bilirubin Urine UA NEGATIVE (NEGATIVE); Color Urine UA YELLOW; Glucose Urine UA NEGATIVE (Negative); Ketones Urine UA NEGATIVE (NEGATIVE); Leukocyte Esterase Urine UA NEGATIVE (NEGATIVE); Nitrite Urine UA NEGATIVE (Negative); Occult Blood Urine UA NEGATIVE (Negative); Protein Urine UA NEGATIVE (Negative); Urobilinogen Urine UA 0.2 E.U./dL (0.2)
[2025-03-13 02:27] LABS: pH Urine UA 5.5 (4.5-8.0)
[2025-03-13 02:32] LABS: Bacteria Urine None Seen; Culture Indicated Urine Cult Not Indicated; RBC Urine None Seen (0-5/HPF); Squamous Epithelial Cell Urine None Seen (0-5/HPF); Urine Volume 10mL (spun); WBC Urine None Seen (0-5/HPF)
[2025-03-13 02:33] LABS: UR Morphine/Opiate cutoff 300 Negative (Negative); Urine Amphetamines Negative (Negative); Urine Barbiturates Negative (Negative); Urine Benzodiazepines Positive (Negative); Urine Cocaine Negative (Negative); Urine MDMA Negative (Negative); Urine Methadone Negative (Negative); Urine Methamphetamines Negative (Negative); Urine Oxycodone Negative (Negative); Urine Phencyclidine Negative (Negative); Urine Tetrahydrocannabinol Negative (Negative); Urine Tricyclic Antidepressant Negative (Negative)
[2025-03-13 02:42] LABS: Ethanol (ETOH) 276 mg/dL; Magnesium 2.3 mg/dL (1.6-2.3)
[2025-03-13 02:43] LABS: Alanine Aminotransferase 15 IU/L (<35); Albumin 4.2 g/dL (3.5-5.0); Albumin Globulin Ratio 1.5 (1.0-2.8); Alkaline Phosphatase 72 U/L (38-126); Aspartate Aminotransferase 32 IU/L (14-36); BUN Creatinine Ratio 14.3 (6-22); Bilirubin Total 0.4 mg/dL (0.2-1.3); Blood Urea Nitrogen 9 mg/dL (7-17); Calcium 8.8 mg/dL (8.4-10.2); Carbon Dioxide 23 mmol/L (22-32); Chloride 112 mmol/L (98-107); Estimated Glomerular Filt Rate > 60 mL/min (>60); Globulin 2.8 g/dL (1.7-4.1); Glucose 107 mg/dL (80-110); HEMOLYSIS < 15 (0-50); Lipase 220 U/L (23-300); Potassium 3.9 mmol/L (3.4-5.1); Sodium 147 mmol/L (137-145)
--- NOTE | 2025-03-13 03:05 | PC.NURSE ---
Pt travelled to CT with RN and quality assurance practice manager
--- NOTE | 2025-03-13 03:07 | PC.NURSE ---
Pt hypotensive 70's/40's. Dr Virk aware, order received for 2nd liter NS bolus.
--- NOTE | 2025-03-13 04:51 | PC.NURSE ---
0345 Dr Virk aware of persistent hypotension; per Dr Brown ok to permit if MAPs remail >60.
--- NOTE | 2025-03-13 05:01 | PC.NURSE ---
Late Entry/ Summary of Care 0200 Pt had unwitnessed fall from bed and was found unresponsive on the floor, seizure-like activity noted. Dr Virk called to room, pt lifted onto stretcher. Consciousness regained without postictal phase. Pt moving all extremities. No s/s injury. Fall precautions initiated, pt moved to high-vis room. Seizure precautions initiated. Pt medicated for seizure prophylaxis per emar. 0210 Pt with increasing agitation, verbally abusive to staff and attempts to climb out of bed. Deescalation techniques ineffective. Pt medicated with ativan per emar. 0300 Pt sedate. BP's soft, Dr Virk aware, plan to allow hypotension, keep MAPS >60. 0500 Pt sleeping, snoring lightly. BP now 117/66.
--- NOTE | 2025-03-13 10:41 | PC.NURSE ---
Pt still drowsy, falling asleep mid conversation. Will hold Topiramate until pt is more alert for PO medications.
--- NOTE | 2025-03-13 14:40 | CM.SWNOTE ---
ED MIXER HELPER Note Patient is 64 y/o female who present to ED last night via [facility] due to concern for patient's ETOH use. It was reported that patient was drinking in a bar in [place], somehow got a taxi to [place] and was found by LE in the [employer] parking lot. Patient presented with BAL of 276. Patient has hx of Posttraumatic Epilepsy, Anxiety, ETOH use, and Depression. MIXER HELPER enters room to meet with patient, patient was resting all night and most of the day. Patient presents as A/Ox3. Patient states she does not know how she got to [place] or how she got to the ED. Patient states that she was drinking last night in [facility]. Patient states that she typically drinks 3 glasses of wine a day, but patient states she went out last night and she is uncertain how much she drank. Patient states she used to go to AA meetings daily for 3 years, patient endorses hx of several inpatient rehab stays in my younger days. Patient denies any current [facility] or [facility] outpatient providers. Patient endorses she is currently homeless, patient states she was staying at [facility] and can return there in several days. MIXER HELPER discusses other senior care options. Patient states that she has a [employer] bus pass. MIXER HELPER discusses detox with patient and discusses limitations due to patient's seizure disorder, patient endorses preference to d/c to community. MIXER HELPER provides patient with resources for food, housing, basic needs, [facility] resources and lists of AA meetings. Plan: patient to d/c to community upon medical clearance, patient to f/u with resources provided. KEKE MayaSW
== END 2025-03-13 14:45 | disposition home or self-care (01) ==
PROVIDERS: Student in an Organized Health Care Education/Training Program; Emergency Provider Emergency Medicine
DX: F10.129 Alcohol abuse with intoxication, unspecified (principal); Y90.8 Blood alcohol level of 240 mg/100 ml or more; W18.30XA Fall on same level, unspecified, initial encounter; E04.1 Nontoxic single thyroid nodule; R56.9 Unspecified convulsions
CPT/HCPCS: 36415; 70450; 71045; 72125; 80053; 80305; 80320; 81001; 83690; 83735; 85025; 93005; 96361; 96365; 96372; 96375; 99285; J1953; J2060

== ENCOUNTER 2025-03-24 22:38 | Emergency (ER) | payer MEDICARE, MEDICAID, SELFPAY ==
[2025-03-24 22:40] VITALS: BP 117/44; PULSE 77; RESP 18; TEMP 36.1; O2SAT 97; BMI 20.3
--- NOTE | 2025-03-24 22:48 | ED_ITS ---
HPI - Altered Mental Status General Chief Complaint: Toxicology Problem Stated Complaint: decreased LOC Time Seen by Provider: 03/24/25 22:38 History of Present Illness HPI narrative: 64-year-old female history of seizure on topiramate and Keppra and history of alcohol intoxication was found down at the [facility] where by EMS administered total of 6 mg of Narcan prior to arrival here. She is now awake alert oriented to verbal command. She is being mean and rude and does not want to be examined and is refusing to answer any of my questions at this time. Unable to obtain review of system as patient is refusing to cooperate with the exam and as such review of system is limited also. Related Data Home Medications Medication Instructions Recorded Confirmed fluoxetine 40 mg capsule (Prozac) 20 mg PO QDAY ##0 01/30/13 ibuprofen 200 mg capsule (Advil 200 mg PO ##0 11/11/16 Liqui-Gel) Previous Rx's Medication Instructions Recorded propranolol 20 mg tablet 20 mg PO BID #60 tabs 10/21/16 ketorolac 10 mg tablet 10 mg PO Q6HP PRN #20 tabs 11/11/16 hydrocodone 5 mg-acetaminophen 325 1 tab PO Q4HP PRN #15 tabs 11/20/16 mg tablet ([place]) phenytoin sodium extended 100 mg 500 mg (5 x 100 mg) PO SEE 12/23/16 capsule (Dilantin Extended) INSTRUCTIONS #125 tabs divalproex 500 mg tablet,extended 0 PO SEE INSTRUCTIONS #100 tabs 12/21/17 release 24 hr (Depakote ER) levetiracetam 500 mg tablet 500 mg PO .HS #30 tabs 03/04/25 (Keppra) levetiracetam 750 mg tablet 750 mg PO DAILY #30 tabs 03/04/25 (Keppra) topiramate 100 mg tablet 150 mg (1.5 x 100 mg) PO BID #90 03/04/25 tabs Allergies Allergy/AdvReac Type Severity Reaction Status Date / Time codeine [CODEINE] Allergy Unknown Verified 04/21/23 04:54 oxycodone [OXYCODONE] Allergy Unknown Verified 04/21/23 04:54 Review of Systems Review of Systems ROS Unobtainable: All systems reviewed & are unremarkable except as noted in HPI and below Patient History Medical History (Updated 03/25/25 @ 06:15 by Tj Nowak DO) Hyperlipidemia History of kidney stones Peripheral arterial disease Hypertension COPD (chronic obstructive pulmonary disease) Methamphetamine abuse Continuous tobacco abuse Alcohol use disorder Migraine with aura Post-traumatic epilepsy tobacco type: cigarettes Exam Narrative Exam Narrative: GENERAL: [64] year old patient appears stated age. Well-developed patient, in mild distress. HEAD: Atraumatic. Normocephalic. EYES: Pupils equal round and reactive. Extraocular motions intact. No scleral icterus. No injection or drainage. EXTREMITIES: She is moving all extremities spontaneously without pain. NEURO: AOx2. GCS 15 gross motor/sensory intact on visual exam Initial Vital Signs Initial Vital Signs: Vital Signs Temperature 96.9 F L 03/24/25 22:40 Pulse Rate 77 03/24/25 22:40 Respiratory Rate 18 03/24/25 22:40 Blood Pressure 117/44 L 03/24/25 22:40 Pulse Oximetry 97 03/24/25 22:40 Oxygen Delivery Method Room Air 03/24/25 22:40 Course Orders Ordered: ED Orders 03/24/25 23:01 Urine Drug Screen, Rapid Stat 03/24/25 23:24 CBC Auto Diff [Complete Blood Count AUTO DIFF] Stat CMP [Comprehensive Metabolic Panel] Stat ETOH [Ethanol (ETOH)] Stat Vital Signs Vital signs: Vital Signs - 8 hr 03/24/25 22:40 03/25/25 03:02 Temperature 96.9 F L Pulse Rate 77 78 Respiratory Rate 18 16 Blood Pressure 117/44 L 91/51 L Pulse Oximetry 97 99 Oxygen Delivery Method Room Air Room Air MDM - Altered Mental Status Lab Data 03/24/25 23:24 03/24/25 23:24 Labs: Lab Results 03/24/25 Range/Units 23:24 WBC 5.7 (4.5-11.0) X10^3/uL RBC 4.08 (4.0-5.2) X10^6/uL Hgb 12.2 (12.0-16.0) g/dL Hct 35.9 L (36-46) % MCV 88.0 (80-100) fL MCH 29.9 (26-34) PG MCHC 33.9 (30-36) % RDW 14.3 (11.6-14.8) % Plt Count 204 (150-400) X10^3/uL Neut % (Auto) 59.2 (50-75) % Lymph % (Auto) 31.0 (25-40) % [place] % (Auto) 6.7 (3-14) % Eos % (Auto) 1.8 L (2-4) % Baso % (Auto) 1.3 (0-2) % Neut # (Auto) 3400 (5308-6448) /uL Lymph # (Auto) 1800 (9146-5263) /uL [place] # (Auto) 400 (0-900) /uL Eos # (Auto) 100 (0-450) /uL Baso # (Auto) 100 (0-100) /uL Sodium 143 (137-145) mmol/L Potassium 3.5 (3.4-5.1) mmol/L Chloride 111 H (98-107) mmol/L Carbon Dioxide 21 L (22-32) mmol/L BUN 14 (7-17) mg/dL Creatinine 0.57 (0.52-1.04) mg/dL Estimated GFR > 60 (>60) mL/min BUN/Creatinine Ratio 24.6 H (6-22) Glucose 106 H (70-99) mg/dL Calcium 8.8 (8.4-10.2) mg/dL Total Bilirubin 0.4 (0.2-1.3) mg/dL AST 21 (14-36) IU/L ALT 15 (<35) IU/L Alkaline Phosphatase 71 (38-126) U/L Total Protein 6.5 (6.3-8.2) g/dL Albumin 4.1 (3.5-5.0) g/dL Globulin 2.4 (1.7-4.1) g/dL Albumin/Globulin Ratio 1.7 (1.0-2.8) Ethyl Alcohol 226 H ( - 10) mg/dL [facility] Narrative Medical decision making narrative: All lab work ,vital signs, nurse triage note, medication list, previous ER visits and all imaging modalities all reviewed. Patient is now awake alert and oriented x4 patient reports that she drank some wine last night and also forgot taking her seizure medicines for the past 48 hours. She is moving all her extremities she is alert oriented x4 pleasant and cooperative at this time. Differential diagnosis includes alcohol use/abuse, seizure, electrolyte derangement. Follow up with PCP next week for follow up care. Patient will be taking cab ride back to the hotel. Discharge Plan Departure Patient Disposition: Home Clinical Impression: Alcohol intoxication Qualifiers: Complication of substance-induced condition: uncomplicated Qualified Code(s): F 10.920 - Alcohol use, unspecified with intoxication, uncomplicated Instructions: DI for Alcohol Use Disorder Activity Restrictions/Additional Instructions: Return with new or worsening symptoms. Please take your seizure medicines as directed. Follow up with PCP next week for follow up care. Prescriptions: No Action fluoxetine [Prozac] 40 MG capsule 20 mg PO QDAY Qty: 0 propranolol 20 MG tablet 20 mg PO BID Qty: 60 3RF ibuprofen [Advil Liqui-Gel] 200 MG capsule 200 mg PO Qty: 0 ketorolac 10 MG tablet 10 mg PO Q6HP PRNQty: 20 0RF hydrocodone-acetaminophen [[place]] 5 MG/325 MG tablet 1 tab PO Q4HP PRNQty: 15 0RF phenytoin sodium extended [Dilantin Extended] 100 MG capsule 500 mg PO SEE INSTRUCTIONS Qty: 125 12RF divalproex [Depakote ER] 500 MG tablet extended release 24 hr 0 PO SEE INSTRUCTIONS Qty: 100 5RF levetiracetam [Keppra] 750 mg tablet 750 mg PO DAILY Qty: 30 3RF levetiracetam [Keppra] 500 mg tablet 500 mg PO .HS Qty: 30 3RF topiramate 100 mg tablet 150 mg PO BID Qty: 90 3RF Referrals: Miscellaneous,Doctor, MD [Primary Care Provider] - Stand Alone Forms: Patient Portal/API/Survey
[2025-03-24 23:40] LABS: Add Manual Diff / Slide Review NO; Basophils Absolute Auto 100 /uL (0-100); Basophils Percent Auto 1.3 % (0-2); Eosinophils Absolute Auto 100 /uL (0-450); Eosinophils Percent Auto 1.8 % (2-4); Hematocrit 35.9 % (36-46); Hemoglobin 12.2 g/dL (12.0-16.0); Lymphocytes Absolute Auto 1800 /uL (1100-4500); Mean Corpuscular HGB Conc 33.9 % (30-36); Mean Corpuscular Hemoglobin 29.9 PG (26-34); Monocytes Absolute Auto 400 /uL (0-900); Monocytes Percent Auto 6.7 % (3-14); Neutrophils Absolute Auto 3400 /uL (1500-7000); Neutrophils Percent Auto 59.2 % (50-75); Platelet Count 204 X10^3/uL (150-400); Red Blood Cell Count 4.08 X10^6/uL (4.0-5.2); Red Cell Distribution Width 14.3 % (11.6-14.8); White Blood Cell Count 5.7 X10^3/uL (4.5-11.0)
[2025-03-24 23:46] LABS: Alanine Aminotransferase 15 IU/L (<35); Albumin 4.1 g/dL (3.5-5.0); Albumin Globulin Ratio 1.7 (1.0-2.8); Alkaline Phosphatase 71 U/L (38-126); Aspartate Aminotransferase 21 IU/L (14-36); BUN Creatinine Ratio 24.6 (6-22); Bilirubin Total 0.4 mg/dL (0.2-1.3); Blood Urea Nitrogen 14 mg/dL (7-17); Calcium 8.8 mg/dL (8.4-10.2); Carbon Dioxide 21 mmol/L (22-32); Chloride 111 mmol/L (98-107); Estimated Glomerular Filt Rate > 60 mL/min (>60); Ethanol (ETOH) 226 mg/dL; Globulin 2.4 g/dL (1.7-4.1); Glucose 106 mg/dL (70-99); HEMOLYSIS < 15 (0-50); Potassium 3.5 mmol/L (3.4-5.1); Sodium 143 mmol/L (137-145); Total Protein 6.5 g/dL (6.3-8.2)
--- NOTE | 2025-03-25 01:45 | PC.NURSE ---
03/25/2025 at 0130 trail of blood observed by this nurse from pt's assigned room to the bathroom. Pt appeared to have taken it upon herself to ambulate to the bathroom without calling for assistance, and in the process dislodged her right wrist IV. This nurse applied 2x2 guaze dressing to pt's right wrist/hematoma with coban securement, then assisted pt back to her room. Pt was unaware she pulled her IV. Pt now back in room with bed in low position, encouraged pt to use call light prior to ambulating in future. pt agreed.
[2025-03-25 03:02] VITALS: BP 91/51; PULSE 78; RESP 16; O2SAT 99
[2025-03-25] MEDS: levETIRAcetam 250 MG TABLET 500 MG PO (06:15)
[2025-03-25] MEDS: ACETAMINOPHEN 325 MG TABLET 650 MG PO (06:19)
[2025-03-25] MEDS: TOPIRAMATE 100 MG TABLET 150 MG PO (06:24)
[2025-03-25 06:27] VITALS: BP 138/83; PULSE 84; RESP 16; O2SAT 97
== END 2025-03-25 06:29 | disposition home or self-care (01) ==
PROVIDERS: Emergency Provider Family Medicine
DX: F10.920 Alcohol use, unspecified with intoxication, uncomplicated (principal); G40.909 Epilepsy, unspecified, not intractable, without status epilepticus; Y90.7 Blood alcohol level of 200-239 mg/100 ml
CPT/HCPCS: 36415; 80053; 80320; 85025; 99283

== ENCOUNTER 2025-05-08 23:58 | Inpatient (IN) | payer MEDICARE, MEDICAID, SELFPAY ==
--- NOTE | 2025-05-08 23:59 | ED_ITS ---
HPI - General Adult General Chief complaint: Seizure Stated complaint: seizure Time Seen by Provider: 05/08/25 23:59 History of Present Illness HPI narrative: 64-year-old woman with a history of seizure disorder, alcohol use disorder, methamphetamine use and homelessness was seen earlier today by medics significantly intoxicated with alcohol. About 6 hours after that they were called with the report that somebody was seizing in front of the gas station. When they arrived she was on the ground she was given Versed and seemed to come out of the 1st seizure and then had a 2nd seizure. At that point she was given ketamine rocuronium and intubated. She is brought in for further evaluation Related Data Home Medications ?Medication ?Instructions ?Recorded ?Confirmed fluoxetine 40 mg capsule (Prozac) 20 mg PO QDAY ##0 ibuprofen 200 mg capsule (Advil 200 mg PO ##0 11/11/16 Liqui-Gel) Previous Rx's ?Medication ?Instructions ?Recorded propranolol 20 mg tablet 20 mg PO BID #60 tabs ketorolac 10 mg tablet 10 mg PO Q6HP PRN #20 tabs 1 01/12/16 hydrocodone 5 mg-acetaminophen 325 1 tab PO Q4HP PRN # 15 tabs 11/20/16 mg tablet ([place]) phenytoin sodium extended 100 mg 500 mg (5 x 100 mg) P O SEE 12/23/16 capsule (Dilantin Extended) INSTRUCTIONS #125 tabs divalproex 500 mg tablet,extended 0 PO SEE INSTRUCTION S #100 tabs 12/21/17 release 24 hr (Depakote ER) levetiracetam 500 mg tablet 500 mg PO .HS #30 tabs (Keppra) levetiracetam 750 mg tablet 750 mg PO DAILY #30 tabs 0 03/04/25 (Keppra) topiramate 100 mg tablet 150 mg (1.5 x 100 mg) PO BID #90 03/04/25 tabs Allergies Allergy/AdvReac Type Severity Reaction Status Date / Time codeine (CODEINE) Allergy Unknown Verified 04/21/23 04:54 oxycodone (OXYCODONE) Allergy Unknown Verified 04/21/23 04:54 Review of Systems Review of Systems ROS Unobtainable: Unobtainable due to medical condition and Unobtainable due to mental status/LOC Patient History Medical History (Updated 05/09/25 @ 02:32 by Courtney Schultz MD) Hyperlipidemia History of kidney stones Peripheral arterial disease Hypertension COPD (chronic obstructive pulmonary disease) Methamphetamine abuse Continuous tobacco abuse Alcohol use disorder Migraine with aura Post-traumatic epilepsy tobacco type: cigarettes Exam Narrative Exam Narrative: General: Intubated, no obvious trauma abrasions or contusions Respiratory: Lungs are clear to auscultation, no wheezing no rales no rhonchi. Full and symmetrical air movement after intubation Cardiac: Regular rate and rhythm no murmurs no bruits Abdomen: Soft, nontender, no rebound or guarding, no flank pain. No obvious abrasions or contusions Skin: Warm and dry, no significant track ralph area of cellulitis or areas of abrasion Neurologic: Patient is paralyzed and sedated. Medics do describe all extremities moving prior to paralyzation Extremities: No obvious trauma identified Initial Vital Signs Initial Vital Signs: Vital Signs Pulse Rate 65 05/09/25 00:00 Respiratory Rate 16 05/09/25 00:00 Blood Pressure 91/53 L 05/09/25 00:00 Pulse Oximetry 100 05/09/25 00:00 Course Orders Ordered: ED Orders 05/08/25 23:59 XR chest 1V Stat Complete Blood Count AUTO DIFF Stat 05/09/25 00:00 EKG-12 Lead Stat 05/09/25 00:01 CT head/brain wo con Stat 05/09/25 00:03 ABG [Arterial Blood Gas] STAT 05/09/25 00:19 Urinalysis and Microscopic Stat urine tox [Urine Drug Screen, Rapid] Stat 05/09/25 01:40 XR chest 1V Stat 05/09/25 01:45 Consult to Dietitian, Adult Routine Sputum Culture DAILY Arterial Blood Gas DAILY 05/10/25 01:45 Complete Blood Count AUTO DIFF DAILY Comprehensive Metabolic Panel DAILY Sputum Culture DAILY 05/11/25 01:45 Complete Blood Count AUTO DIFF DAILY Comprehensive Metabolic Panel DAILY Sputum Culture DAILY 05/12/25 01:45 Complete Blood Count AUTO DIFF DAILY Comprehensive Metabolic Panel DAILY Sputum Culture DAILY 05/13/25 01:45 Complete Blood Count AUTO DIFF DAILY Comprehensive Metabolic Panel DAILY 05/14/25 01:45 Complete Blood Count AUTO DIFF DAILY Comprehensive Metabolic Panel DAILY 05/15/25 01:45 Complete Blood Count AUTO DIFF DAILY Comprehensive Metabolic Panel DAILY 05/16/25 01:45 Complete Blood Count AUTO DIFF DAILY Comprehensive Metabolic Panel DAILY 05/17/25 01:45 Complete Blood Count AUTO DIFF DAILY Comprehensive Metabolic Panel DAILY 05/18/25 01:45 Complete Blood Count AUTO DIFF DAILY Comprehensive Metabolic Panel DAILY 05/19/25 01:45 Complete Blood Count AUTO DIFF DAILY Comprehensive Metabolic Panel DAILY 05/20/25 01:45 Complete Blood Count AUTO DIFF DAILY Comprehensive Metabolic Panel DAILY 05/21/25 01:45 Complete Blood Count AUTO DIFF DAILY Comprehensive Metabolic Panel DAILY 05/22/25 01:45 Complete Blood Count AUTO DIFF DAILY Comprehensive Metabolic Panel DAILY Acetaminophen (Acetaminophen 325 Mg Tablet) 650 mg PO Q6H PRN PRN Reason: Fever/Mild Pain (1-3) Chlorhexidine Gluconate (Chlorhexidine Gluconate 15 Ml Cup) 15 ml PO Q6HR SUGAR Enoxaparin Sodium (Enoxaparin 40 Mg/0.4 Ml Syringe) 40 mg SUBCUT DAILY SUGAR dexmedeTOMIDine in 0.9 % NaCL (Precedex) 400 mcg in 100 mls @ 3.341 mls/hr IV TITRATE SUGAR; Protocol Last Titration: 05/09/25 02:23 Dose: 1 mcg/kg/hr, 16.704 mls/hr NOREPINEPHRINE BITARTRATE/D5W (Levophed) 4 mg in 250 mls @ 25.055 mls/hr IV TITRATE SUGAR; Protocol Last Titration: 05/09/25 02:17 Dose: 0.1 mcg/kg/min, 25.055 mls/hr Sodium Chloride (Normal Saline 0.9%) 1,000 mls @ 100 mls/hr IV CONT SUGAR Levetiracetam 1,000 mg/ Sodium (Chloride) 110 mls @ 440 mls/hr IV Q12H SUGAR Naloxone HCl (Naloxone 0.4 Mg/Ml Vial) 0.2 mg IV Q2MIN PRN PRN Reason: Opiate Reversal Pantoprazole Sodium (Pantoprazole 40 Mg Vial) 40 mg IV DAILY SUGAR Discontinued Medications Levetiracetam 1,500 mg/ Sodium (Chloride) 115 mls @ 460 mls/hr IV NOW ONE Stop: 05/09/25 00:00 Last Infusion: 05/09/25 00:29 Dose: Infused Sodium Chloride (Normal Saline 0.9%) 1,000 mls @ 1,000 mls/hr IV BOLUS ONE Stop: 05/09/25 01:26 Last Infusion: 05/09/25 01:23 Dose: Infused Vital Signs Vital signs: Vital Signs - 8 hr 05/09/25 00:00 05/09/25 00:00 05/09/25 00:02 Temperature 94.1 F L Pulse Rate 65 66 Respiratory Rate 16 14 Blood Pressure 91/53 L 95/51 L Pulse Oximetry 100 100 Oxygen Delivery Method Mechanical Ventilation 05/09/25 00:05 05/09/25 00:05 05/09/25 00:09 Temperature Pulse Rate 62 Respiratory Rate 16 Blood Pressure 78/46 L 110/59 L Pulse Oximetry 100 Oxygen Delivery Method 05/09/25 00:09 05/09/25 00:10 05/09/25 00:10 Temperature Pulse Rate 75 68 Respiratory Rate 16 34 H Blood Pressure 98/55 L Pulse Oximetry 100 100 Oxygen Delivery Method 05/09/25 00:15 05/09/25 00:15 05/09/25 00:20 Temperature Pulse Rate 61 Respiratory Rate 33 H Blood Pressure 83/55 L 90/55 L Pulse Oximetry 100 Oxygen Delivery Method 05/09/25 00:20 05/09/25 00:25 05/09/25 00:25 Temperature 95.7 F L 95.4 F L Pulse Rate 62 58 L Respiratory Rate Blood Pressure 78/44 L Pulse Oximetry 100 100 Oxygen Delivery Method 05/09/25 00:30 05/09/25 00:30 05/09/25 00:35 Temperature 95.2 F L Pulse Rate 56 L Respiratory Rate Blood Pressure 68/40 L 69/42 L Pulse Oximetry 100 Oxygen Delivery Method 05/09/25 00:35 05/09/25 00:40 05/09/25 00:40 Temperature 95.0 F L 94.8 F L Pulse Rate 54 L 50 L Respiratory Rate 16 Blood Pressure 93/55 L Pulse Oximetry 100 100 Oxygen Delivery Method 05/09/25 00:45 05/09/25 00:45 05/09/25 00:46 Temperature 94.6 F L Pulse Rate 52 L Respiratory Rate Blood Pressure 154/88 H 161/86 H Pulse Oximetry 100 Oxygen Delivery Method 05/09/25 00:46 05/09/25 00:50 05/09/25 00:50 Temperature 94.6 F L 94.6 F L Pulse Rate 48 L 50 L Respiratory Rate 16 16 Blood Pressure 157/87 H Pulse Oximetry 100 100 Oxygen Delivery Method 05/09/25 00:55 05/09/25 00:55 05/09/25 00:58 Temperature 94.6 F L Pulse Rate 71 Respiratory Rate 18 Blood Pressure 174/85 H 163/89 H Pulse Oximetry 100 Oxygen Delivery Method 05/09/25 00:58 05/09/25 01:00 05/09/25 01:00 Temperature 94.5 F L 94.3 F L Pulse Rate 72 72 Respiratory Rate 23 Blood Pressure 155/80 H Pulse Oximetry 100 100 Oxygen Delivery Method 05/09/25 01:05 05/09/25 01:05 05/09/25 01:10 Temperature 94.3 F L Pulse Rate 57 L Respiratory Rate Blood Pressure 129/59 L 136/63 Pulse Oximetry 100 Oxygen Delivery Method 05/09/25 01:10 05/09/25 01:15 05/09/25 01:15 Temperature 94.3 F L 94.5 F L Pulse Rate 73 68 Respiratory Rate Blood Pressure 135/72 Pulse Oximetry 100 100 Oxygen Delivery Method 05/09/25 01:20 05/09/25 01:20 05/09/25 01:26 Temperature 94.5 F L Pulse Rate 61 Respiratory Rate 24 Blood Pressure 127/63 136/70 Pulse Oximetry 100 Oxygen Delivery Method 05/09/25 01:26 05/09/25 01:30 05/09/25 01:30 Temperature 94.6 F L 94.6 F L Pulse Rate 83 70 Respiratory Rate Blood Pressure 130/64 Pulse Oximetry 100 100 Oxygen Delivery Method 05/09/25 01:35 05/09/25 01:35 05/09/25 01:40 Temperature 94.8 F L Pulse Rate 79 Respiratory Rate Blood Pressure 146/72 H 127/60 Pulse Oximetry 99 Oxygen Delivery Method 05/09/25 01:40 05/09/25 01:45 05/09/25 01:45 Temperature 94.8 F L 95.0 F L Pulse Rate 61 80 Respiratory Rate Blood Pressure 135/65 Pulse Oximetry 100 100 Oxygen Delivery Method 05/09/25 01:50 05/09/25 01:50 05/09/25 01:55 Temperature 95.2 F L 95.2 F L Pulse Rate 77 57 L Respiratory Rate 16 Blood Pressure 150/69 H Pulse Oximetry 100 100 Oxygen Delivery Method 05/09/25 01:55 05/09/25 02:00 05/09/25 02:00 Temperature 95.4 F L Pulse Rate 57 L Respiratory Rate Blood Pressure 131/58 L 125/58 L Pulse Oximetry 100 Oxygen Delivery Method 05/09/25 02:05 05/09/25 02:05 05/09/25 02:10 Temperature 95.4 F L Pulse Rate 56 L Respiratory Rate Blood Pressure 127/59 L 104/55 L Pulse Oximetry 100 Oxygen Delivery Method 05/09/25 02:10 05/09/25 02:15 05/09/25 02:15 Temperature 95.5 F L 95.5 F L Pulse Rate 57 L 55 L Respiratory Rate Blood Pressure 78/44 L Pulse Oximetry 100 99 Oxygen Delivery Method 05/09/25 02:20 05/09/25 02:20 05/09/25 02:25 Temperature 95.5 F L Pulse Rate 52 L Respiratory Rate 18 Blood Pressure 102/58 L 127/70 Pulse Oximetry 100 Oxygen Delivery Method 05/09/25 02:25 05/09/25 02:30 05/09/25 02:30 Temperature 95.7 F L 95.9 F L Pulse Rate 50 L 51 L Respiratory Rate 21 24 Blood Pressure 133/72 Pulse Oximetry 100 100 Oxygen Delivery Method 05/09/25 02:35 05/09/25 02:35 05/09/25 02:40 Temperature 96.1 F L Pulse Rate 52 L Respiratory Rate 24 Blood Pressure 135/71 127/66 Pulse Oximetry 100 Oxygen Delivery Method 05/09/25 02:40 05/09/25 02:45 05/09/25 02:45 Temperature 96.1 F L 96.3 F L Pulse Rate 53 L 54 L Respiratory Rate 18 24 Blood Pressure 130/66 Pulse Oximetry 100 100 Oxygen Delivery Method 05/09/25 02:50 05/09/25 02:50 Temperature 96.3 F L Pulse Rate 54 L Respiratory Rate 24 Blood Pressure 130/69 Pulse Oximetry 100 Oxygen Delivery Method Medical Decision Making Lab Data 05/09/25 00:10 05/09/25 00:10 Labs: Lab Results 05/09/25 05/09/25 05/09/25 Range/Units 00:10 00:19 00:19 WBC 3.9 L (4.5-11.0) X10^3/uL RBC 4.05 (4.0-5.2) X10^6/uL Hgb 12.0 (12.0-16.0) g/dL Hct 35.8 L (36-46) % MCV 88.4 (80-100) fL MCH 29.6 (26-34) PG MCHC 33.4 (30-36) % RDW 14.0 (11.6-14.8) % Plt Count 201 (150-400) X10^3/uL Neut % (Auto) 60.2 (50-75) % Lymph % (Auto) 32.6 (25-40) % [place] % (Auto) 4.9 (3-14) % Eos % (Auto) 1.3 L (2-4) % Baso % (Auto) 1.0 (0-2) % Neut # (Auto) 2400 (5316-3583) /uL Lymph # (Auto) 1300 (2684-3982) /uL [place] # (Auto) 200 (0-900) /uL Eos # (Auto) 0 (0-450) /uL Baso # (Auto) 0 (0-100) /uL ABG Sample Site ABG pH (7.35-7.45) ABG pCO2 (35-45) mmHg ABG pO2 (80-100) mmHg ABG HCO3 (23-27) mmol/L ABG Total CO2 (23-27) mmol/L ABG O2 Saturation (95-100) % ABG Base Excess (-2-3) mmol/L Aldo Test Respiration Rate Mode of Support FiO2 % % PEEP or CPAP Sodium 146 H (137-145) mmol/L Potassium 3.4 (3.4-5.1) mmol/L Chloride 114 H (98-107) mmol/L Carbon Dioxide 20 L (22-32) mmol/L BUN 10 (7-17) mg/dL Creatinine 0.52 (0.52-1.04) mg/dL Estimated GFR > 60 (>60) mL/min BUN/Creatinine Ratio 19.2 (6-22) Glucose 104 H (70-99) mg/dL Lactate 2.0 (0.7-2.1) mmol/L Calcium 8.4 (8.4-10.2) mg/dL Magnesium 2.0 (1.6-2.3) mg/dL Total Bilirubin 0.4 (0.2-1.3) mg/dL AST 19 (14-36) IU/L ALT 11 (<35) IU/L Alkaline Phosphatase 78 (38-126) U/L Troponin I < 0.012 (0.01-0.034) ng/mL NT-Pro-B Natriuret Pep 63 (<125) pg/mL Total Protein 6.6 (6.3-8.2) g/dL Albumin 4.0 (3.5-5.0) g/dL Globulin 2.6 (1.7-4.1) g/dL Albumin/Globulin Ratio 1.5 (1.0-2.8) Lipase 161 (23-300) U/L Urine Color Yellow Urine Appearance Clear Urine pH 5.5 TNP (4.5-8.0) Ur Specific [place] <=1.005 (1.000-1.035) Urine Protein Negative (Negative) Urine Glucose (UA) Negative (Negative) g/dL Urine Ketones Negative (NEGATIVE) Urine Occult Blood Negative (Negative) Urine Nitrate Negative (Negative) Urine Bilirubin Negative (NEGATIVE) Urine Urobilinogen 0.2 (0.2) E.U./dL Ur Leukocyte Esterase Negative (NEGATIVE) Urine RBC None seen (0-5/HPF) Urine WBC None seen (0-5/HPF) Ur Squamous Epith Cells None seen (0-5/HPF) Urine Bacteria None seen (None) Ur Culture Indicated? Cult not indicated Vol Urine Centrifuged 10ml (spun) U Opiates 300ng/mL cut Negative (Negative) Ur Oxycodone Screen Negative (Negative) Urine Methadone Screen Negative (Negative) Acetaminophen < 10 (10-30) ug/mL Ur Barbiturates Screen Negative (Negative) U Tricyclic Antidepress Negative (Negative) Ur Phencyclidine Scrn Negative (Negative) Ur Amphetamines Screen Negative (Negative) U Methamphetamines Scrn Negative (Negative) Ur MDMA Scrn (Ecstasy) Negative (Negative) U Benzodiazepines Scrn Negative (Negative) Urine Cocaine Screen Negative (Negative) U Marijuana (THC) Screen Negative (Negative) Urine Specific [place] TNP Ethyl Alcohol 219 H (<10) mg/dL Ur Creatinine TNP 06/18/25 Range/Units 01:14 WBC (4.5-11.0) X10^3/uL RBC (4.0-5.2) X10^6/uL Hgb (12.0-16.0) g/dL Hct (36-46) % MCV (80-100) fL MCH (26-34) PG MCHC (30-36) % RDW (11.6-14.8) % Plt Count (150-400) X10^3/uL Neut % (Auto) (50-75) % Lymph % (Auto) (25-40) % [place] % (Auto) (3-14) % Eos % (Auto) (2-4) % Baso % (Auto) (0-2) % Neut # (Auto) (6329-6260) /uL Lymph # (Auto) (4643-0653) /uL [place] # (Auto) (0-900) /uL Eos # (Auto) (0-450) /uL Baso # (Auto) (0-100) /uL ABG Sample Site Right radial ABG pH 7.20 L* (7.35-7.45) ABG pCO2 50.3 H (35-45) mmHg ABG pO2 273 H* (80-100) mmHg ABG HCO3 20 L (23-27) mmol/L ABG Total CO2 19 L (23-27) mmol/L ABG O2 Saturation 100 (95-100) % ABG Base Excess -8.2 L (-2-3) mmol/L Aldo Test N/a Respiration Rate 16 Mode of Support Assist cont ventilat FiO2 % 60.0 % % PEEP or CPAP 5 Sodium (137-145) mmol/L Potassium (3.4-5.1) mmol/L Chloride (98-107) mmol/L Carbon Dioxide (22-32) mmol/L BUN (7-17) mg/dL Creatinine (0.52-1.04) mg/dL Estimated GFR (>60) mL/min BUN/Creatinine Ratio (6-22) Glucose (70-99) mg/dL Lactate (0.7-2.1) mmol/L Calcium (8.4-10.2) mg/dL Magnesium (1.6-2.3) mg/dL Total Bilirubin (0.2-1.3) mg/dL AST (14-36) IU/L ALT (<35) IU/L Alkaline Phosphatase (38-126) U/L Troponin I (0.01-0.034) ng/mL NT-Pro-B Natriuret Pep (<125) pg/mL Total Protein (6.3-8.2) g/dL Albumin (3.5-5.0) g/dL Globulin (1.7-4.1) g/dL Albumin/Globulin Ratio (1.0-2.8) Lipase (23-300) U/L Urine Color Urine Appearance Urine pH (4.5-8.0) Ur Specific [place] (1.000-1.035) Urine Protein (Negative) Urine Glucose (UA) (Negative) g/dL Urine Ketones (NEGATIVE) Urine Occult Blood (Negative) Urine Nitrate (Negative) Urine Bilirubin (NEGATIVE) Urine Urobilinogen (0.2) E.U./dL Ur Leukocyte Esterase (NEGATIVE) Urine RBC (0-5/HPF) Urine WBC (0-5/HPF) Ur Squamous Epith Cells (0-5/HPF) Urine Bacteria (None) Ur Culture Indicated? Vol Urine Centrifuged U Opiates 300ng/mL cut (Negative) Ur Oxycodone Screen (Negative) Urine Methadone Screen (Negative) Acetaminophen (10-30) ug/mL Ur Barbiturates Screen (Negative) U Tricyclic Antidepress (Negative) Ur Phencyclidine Scrn (Negative) Ur Amphetamines Screen (Negative) U Methamphetamines Scrn (Negative) Ur MDMA Scrn (Ecstasy) (Negative) U Benzodiazepines Scrn (Negative) Urine Cocaine Screen (Negative) U Marijuana (THC) Screen (Negative) Urine Specific [place] Ethyl Alcohol (<10) mg/dL Ur Creatinine MDM Narrative Medical decision making narrative: CC: Seizure, intubated in the field Complicating co-morbidities: Alcohol use disorder, methamphetamine use disorder, homelessness, seizure disorder Medics did suggest that patient has not been taking any of her seizure medications for the last 2 weeks Data collected from: Medics Social determinants of health that may influence the patients condition: Addiction disorder, homelessness Medical records reviewed: Patient has multiple previous visits to our emergency department for alcohol use related issues. Most recently March 24 of this year. Differential considered: Intracranial hemorrhage, seizure and postictal, overdose accidental or otherwise, severe alcohol intoxication Exam documented above, pertinent findings include: Intubated, initially completely paralyzed now beginning to move all extremities as the rocuronium is wearing off. Lung sounds are unremarkable. No obvious abnormalities on her belly exam no significant trauma I do not Lab Test results independently reviewed as above. Pertinent findings: CBC shows white count at 3.9, no obvious anemia normal platelets ABG shows a pH of 7.2, CO2 of 50 and oxygen level at 273. Bicarb of 20. Oxygen level is decreased slightly in rate is increased from 16-18 we will recheck in 2 hours Chemistries show a sodium slightly elevated at 146, normal renal function, appropriate sugar, liver studies are unrevealing Troponin is undetectable Lipase is within normal limits Urine does not suggest infection Urine tox screen today is negative for all tested substances Alcohol level is 219 No detectable Tylenol or aspirin Lactate is at 2 Imaging studies independently reviewed: Chest x-ray is unremarkable with ETT appropriately positioned. No pneumothorax. Radiologist indicates tip of tube is 3.1 cm proximal to the genevieve. Chest x-ray repeated after NG tube was placed. NG tube appropriately positioned and ETT is now approximately at the genevieve. The only difference between these 2 films is head positioning. The ETT is solidly held and has not change position overall. We will not make any changes to to positioning CT scan of the head shows no abnormality Treatments: On arrival she is called temperature is 94?. Bear warmer we will be added Hypotensive, given 2 L of fluid, allowing sedated medications to wear off, Levophed is initiated to maintain map over 65 She is given 1500 mg of IV Keppra and Precedex is used for sedation Re-evaluations: Patient is comfortably sedated with Precedex, she is making appropriate urine. Easily ventilated, blood pressures have remained what low. She has had 2 L of fluid is currently on minimal amounts of Levophed. We did try to wean the Levophed off and pressures again dropped. We will continue for now. Suspect that this will be minimal interval and central line is not required at this time Discussion: 64-year-old woman with a history of post traumatic brain injury related seizures reportedly has not been taking her seizure medications for the last 2 weeks was drinking heavily as documented by medics who evaluated her earlier today and then went on to have 2 tonic-clonic seizures in front of the [employer] gas station. After the initial seizures he was given IV Versed. Seemed to respond and then had a 2nd seizure that point was intubated and brought into the emergency department. Workup in the ER is fairly benign. No evidence of infection, intracranial hemorrhage, obvious trauma, significant electrolyte abnormalities. She was relatively hypothermic at 94? currently is 95.2 with a Anthony Hugger continuing to Warm and a temperature sensing catheter in place. There was no indication of sepsis or infection antibiotics are not indicated. She was loaded with 1500 mg of Keppra. Alcohol level is 219, possibility of alcohol withdrawal is very real. We will need further evaluation guarding alcohol withdrawal symptoms and timing of extubation and discontinuation of her Precedex. At this point she is stable for transfer to the intensive care unit and is reviewed findings with the hospitalist Critical Care Time Critical Care Time Critical Care Time: Yes Total Critical Care Time: 36 Attestation: Critical care time is separate from other billable procedures. There is a high probability of a significant, sudden or life-threatening deterioration that requires my full and direct attention, intervention and personal management. This critical care time includes consultation with family and other consulting doctors, review of records, and interpretation of data from labs, EKGs and imaging as well as managements of post seizure management, ventilator management, hypotension and hypothermia Discharge Plan Departure Patient Disposition: Admitted As Inpatient Clinical Impression: Seizure, Seizure disorder, Noncompliance with medication regimen, Alcohol use disorder, Housing instability Alcohol intoxication Qualifiers: Complication of substance-induced condition: uncomplicated Qualified Code(s): F 10.920 - Alcohol use, unspecified with intoxication, uncomplicated Hypothermia Qualifiers: Encounter type: initial encounter Qualified Code(s): T68.XXXA - Hypothermia, initial encounter Admit Date/Time: 05/09/25 02:50 Admit Provider: Anupam Rodriguez
--- NOTE | 2025-05-08 23:59 | DI.RAD.S_ITS ---
PROCEDURE: XR CHEST 1V INDICATIONS: intubation TECHNIQUE: One view of the chest was acquired. COMPARISON: [facility], CR, XR CHEST 1V, 03/13/2025, 2:56. FINDINGS: Surgical changes and devices: Endotracheal tube tip projects approximately 3.1 cm above the genevieve. Lungs and pleura: Lungs are clear. No pleural effusions or pneumothorax. Mediastinum: Mediastinal contours appear normal. Heart size is normal. Bones and chest wall: No suspicious bony lesions. Overlying soft tissues appear unremarkable. IMPRESSION: No acute cardiopulmonary abnormality is seen. Endotracheal tube tip projects approximately 3.1 cm above the genevieve. Dictated by: Gabriel Gilbert M.D. on 05/09/2025 at 0:41 Approved by: Gabriel Gilbert M.D. on 05/09/2025 at 0:42
[2025-05-09] VITALS (137 sets, daily range): BP systolic 68–174; BP diastolic 40–89; PULSE 39–83; RESP 10–34; TEMP 34.5–37.3; O2SAT 96–100; BMI 23.1
--- NOTE | 2025-05-09 00:01 | DI.CT.S_ITS ---
PROCEDURE: CT HEAD/BRAIN WO CON INDICATIONS: seizure, fall TECHNIQUE: Noncontrast 4.5 mm thick angled axial sections acquired from the foramen magnum to the vertex, with coronal and sagittal reformats. For radiation dose reduction, the following was used: automated exposure control, adjustment of mA and/or kV according to patient size. COMPARISON: [facility], CT, CT HEAD/BRAIN WO CON, 03/13/2025, 2:03. [facility], CT, CT HEAD/BRAIN WO CON, 04/21/2023, 4:36. FINDINGS: Image quality: Diagnostic. CSF spaces: Basal cisterns are patent. No extra-axial fluid collections. The ventricles are symmetric in size and shape. Brain: No intracranial bleeds or mass effect. There is cerebral volume loss, with resultant ventricular and sulcal prominence. There are periventricular and deep white matter chronic small vessel ischemic changes. There is intracranial internal carotid artery atherosclerosis. Skull and face: Calvarium and visualized facial bones appear intact, without suspicious lesions. Sinuses: Visualized sinuses and mastoids are clear. Opacification of the nasal passages likely related to secretions given patient is intubated. IMPRESSION: 1. CT head without acute intracranial abnormalities or acute calvarial fractures. 2. Age-related senescent changes and sequela of chronic small vessel ischemic disease. Dictated by: Gabriel Gilbert M.D. on 05/09/2025 at 1:44 Approved by: Gabriel Gilbert M.D. on 05/09/2025 at 1:47
[2025-05-09] MEDS: levETIRAcetam 1,500 MG in SODIUM CHLORIDE 0.9% 100 ML 460 MG IV (00:13)
[2025-05-09 00:19] LABS: Add Manual Diff / Slide Review NO; Basophils Absolute Auto 0 /uL (0-100); Eosinophils Absolute Auto 0 /uL (0-450); Eosinophils Percent Auto 1.3 % (2-4); Hematocrit 35.8 % (36-46); Lymphocytes Absolute Auto 1300 /uL (1100-4500); Lymphocytes Percent Auto 32.6 % (25-40); Mean Corpuscular HGB Conc 33.4 % (30-36); Mean Corpuscular Hemoglobin 29.6 PG (26-34); Mean Corpuscular Volume 88.4 fL (80-100); Monocytes Absolute Auto 200 /uL (0-900); Monocytes Percent Auto 4.9 % (3-14); Neutrophils Absolute Auto 2400 /uL (1500-7000); Neutrophils Percent Auto 60.2 % (50-75); Platelet Count 201 X10^3/uL (150-400); Red Blood Cell Count 4.05 X10^6/uL (4.0-5.2); White Blood Cell Count 3.9 X10^3/uL (4.5-11.0)
[2025-05-09] MEDS: dexmedeTOMIDine in 0.9 % NaCL 400 MCG/100 ML PLAST..BAG IV (00:23)
[2025-05-09] MEDS: SODIUM CHLORIDE 0.9% 1,000 ML 1000 ML IV (00:29)
[2025-05-09 00:31] LABS: Acetaminophen < 10 ug/mL (10-30); Alanine Aminotransferase 11 IU/L (<35); Albumin Globulin Ratio 1.5 (1.0-2.8); Alkaline Phosphatase 78 U/L (38-126); Aspartate Aminotransferase 19 IU/L (14-36); BUN Creatinine Ratio 19.2 (6-22); Bilirubin Total 0.4 mg/dL (0.2-1.3); Blood Urea Nitrogen 10 mg/dL (7-17); Calcium 8.4 mg/dL (8.4-10.2); Carbon Dioxide 20 mmol/L (22-32); Chloride 114 mmol/L (98-107); Estimated Glomerular Filt Rate > 60 mL/min (>60); Ethanol (ETOH) 219 mg/dL (<10); Globulin 2.6 g/dL (1.7-4.1); Glucose 104 mg/dL (70-99); HEMOLYSIS < 15 (0-50); Lipase 161 U/L (23-300); Potassium 3.4 mmol/L (3.4-5.1); Sodium 146 mmol/L (137-145); Total Protein 6.6 g/dL (6.3-8.2)
--- NOTE | 2025-05-09 00:33 | EKG_ITS ---
[id number] [address] Test Date: 2025-05-09 Pat Name: Raimundo Walsh Department: [facility] Room: Gender: Female Rate Analyst: GENIA : 1960 Requested By: Order Number: [id number] Reading MD: Tj Sanchez MD Measurements Intervals [place] Rate: 55 P: 68 MT: 150 QRS: 75 QRSD: 96 T: 57 QT: 502 QTc: 480 Interpretive Statements Sinus bradycardia Nonspecific ST abnormality Electronically Signed On 05-09-2025 8:46:08 PDT by Tj Sanchez MD
[2025-05-09] MEDS: NOREPINEPHRINE BITARTRATE/D5W 4 MG/250 ML PLAST..BAG 25.055 MG IV (00:34)
[2025-05-09 00:42] LABS: NT-proBNP (BNP-Adult 18+) 63 pg/mL (<125); Troponin I < 0.012 ng/mL (0.01-0.034)
[2025-05-09 00:52] LABS: Appearance Urine UA CLEAR; Bilirubin Urine UA NEGATIVE (NEGATIVE); Color Urine UA YELLOW; Glucose Urine UA NEGATIVE (Negative); Ketones Urine UA NEGATIVE (NEGATIVE); Leukocyte Esterase Urine UA NEGATIVE (NEGATIVE); Nitrite Urine UA NEGATIVE (Negative); Occult Blood Urine UA NEGATIVE (Negative); Protein Urine UA NEGATIVE (Negative); Specific Gravity Urine UA <=1.005 (1.000-1.035); Urobilinogen Urine UA 0.2 E.U./dL (0.2)
[2025-05-09 00:54] LABS: pH Urine UA 5.5 (4.5-8.0)
[2025-05-09 00:56] LABS: Urine Amphetamines Negative (Negative); Urine Barbiturates Negative (Negative); Urine Benzodiazepines Negative (Negative); Urine Cocaine Negative (Negative); Urine MDMA Negative (Negative); Urine Methadone Negative (Negative); Urine Opiates Negative (Negative); Urine Oxycodone Negative (Negative); Urine Phencyclidine Negative (Negative); Urine THC Negative (Negative); Urine Tricyclic Antidepressant Negative (Negative); Urine Volume 10mL (spun)
[2025-05-09 00:57] LABS: Bacteria Urine None Seen; Culture Indicated Urine Cult Not Indicated; RBC Urine None Seen (0-5/HPF); Squamous Epithelial Cell Urine None Seen (0-5/HPF); WBC Urine None Seen (0-5/HPF)
--- NOTE | 2025-05-09 01:02 | PC.NURSE ---
Pt to CT on patient care specialist with RN & RT. Lines/tubes patent. Pt tolerated well.
[2025-05-09 01:22] LABS: Base Excess ABG -8.2 mmol/L (-2-3); Blood Gas Collection Site Right Radial; Blood Gas Mode Assist Cont Ventilat; HCO3 ABG 20 mmol/L (23-27); Oxygen Saturation ABG 100 % (95-100); PCO2 ABG 50.3 mmHg (35-45); PEEP 5; PO2 ABG 273 mmHg (80-100); Respiratory Rate 16; TCO2 ABG 19 mmol/L (23-27)
--- NOTE | 2025-05-09 01:40 | DI.RAD.S_ITS ---
PROCEDURE: XR CHEST 1V INDICATIONS: confirm g tube placement TECHNIQUE: One view of the chest was acquired. COMPARISON: [facility], CR, XR CHEST 1V, 05/08/2025, 23:56. FINDINGS: Surgical changes and devices: Endotracheal tube tip projects at the level of the genevieve. Nasogastric tube has been placed with distal tip projecting in the left upper abdomen. Lungs and pleura: Lungs are clear. No pleural effusions or pneumothorax. Mediastinum: Mediastinal contours appear normal. Heart size is normal. Bones and chest wall: No suspicious bony lesions. Overlying soft tissues appear unremarkable. IMPRESSION: Interval placement of nasogastric tube with adequate positioning. Endotracheal tube tip now projects at the level of genevieve. Recommend repositioning. Otherwise, stable cardiopulmonary evaluation. Dictated by: Gabriel Gilbert M.D. on 05/09/2025 at 2:04 Approved by: Gabriel Gilbert M.D. on 05/09/2025 at 2:06
--- NOTE | 2025-05-09 02:16 | PC.NURSE ---
Trialled pt off levophed but BP dropped to 78/44. Levo restarted at 0.1 mcg/kg/min. Dr Schultz aware.
--- NOTE | 2025-05-09 03:34 | PC.NURSE ---
Handoff report from TRACI Cardoza. Pt transferred from ED to 226 by ED RN and RT. Pt intubated and sedated on Precedex 1mcg/kg/hr. ACV settings 35%/VT 430/RR 18/PEEP 5. Norephinephrine infusing at 0.1 mcg/kg/hr. Chart and orders reviewed.
--- NOTE | 2025-05-09 03:53 | PM.HP.1 ---
History of Present Illness History of Present Illness Date Patient Seen: 05/09/25 Time Patient Seen: 03:54 Chief complaint: seizure Narrative: The pt is a 64 yo with a knkown seizure disorder, alcoholism, methamphetamine abuse who stopped taking her meds at least several weeks ago and is homeless was brought to the ER tonight after having a witnessed seizure across the street from the hospital. She was given versed which stopped the seizure and she resumed normal cognitive functioning but she had another seizure shortly after and the pt was given ketamine, rocuronium & intubated at that time to protect her airway. The pt was then transported to the ICU where I interviewed the pt. She is currently intubated, on Levophed, Precedex for sedation and was not responding to questions or commands, only has a cough and gag reflex. [facility] Medical History (Updated 05/09/25 @ 02:32 by Courtney Schultz MD) Hyperlipidemia History of kidney stones Peripheral arterial disease Hypertension COPD (chronic obstructive pulmonary disease) Methamphetamine abuse Continuous tobacco abuse Alcohol use disorder Migraine with aura Post-traumatic epilepsy Meds Home Medications and Allergies Home Medications ?Medication ?Instructions ?Recorded ?Confirmed ?Type fluoxetine 40 mg capsule (Prozac) 20 mg PO QDAY ##0 01/30/13 History propranolol 20 mg tablet 20 mg PO BID #60 tabs 10/21/16 Rx ibuprofen 200 mg capsule (Advil 200 mg PO ##0 11/11/16 History Liqui-Gel) ketorolac 10 mg tablet 10 mg PO Q6HP PRN #20 tabs 11/11/16 Rx hydrocodone 5 mg-acetaminophen 325 1 tab PO Q4HP PRN #15 tabs 11/20/16 Rx mg tablet ([place]) phenytoin sodium extended 100 mg 500 mg (5 x 100 mg) PO SEE 12/23/16 Rx capsule (Dilantin Extended) INSTRUCTIONS #125 tabs divalproex 500 mg tablet,extended 0 PO SEE INSTRUCTIONS #100 tabs 12/21/17 Rx release 24 hr (Depakote ER) levetiracetam 500 mg tablet 500 mg PO .HS #30 tabs 03/04/25 Rx (Keppra) levetiracetam 750 mg tablet 750 mg PO DAILY #30 tabs 03/04/25 Rx (Keppra) topiramate 100 mg tablet 150 mg (1.5 x 100 mg) PO BID #90 03/04/25 Rx tabs Allergies Allergy/AdvReac Type Severity Reaction Status Date / Time codeine (CODEINE) Allergy Unknown Verified 04/21/23 04:54 oxycodone (OXYCODONE) Allergy Unknown Verified 04/21/23 04:54 Exam Vital Signs (past 8 hours): - 05/09/25 00:00 05/09/25 00:00 05/09/25 00:02 Temperature 94.1 F L Pulse Rate 65 66 Respiratory Rate 16 14 Blood Pressure 91/53 L 95/51 L Pulse Oximetry 100 100 Oxygen Delivery Method Mechanical Ventilation 05/09/25 00:05 05/09/25 00:05 05/09/25 00:09 Temperature Pulse Rate 62 Respiratory Rate 16 Blood Pressure 78/46 L 110/59 L Pulse Oximetry 100 Oxygen Delivery Method 05/09/25 00:09 05/09/25 00:10 05/09/25 00:10 Temperature Pulse Rate 75 68 Respiratory Rate 16 34 H Blood Pressure 98/55 L Pulse Oximetry 100 100 Oxygen Delivery Method 05/09/25 00:15 05/09/25 00:15 05/09/25 00:20 Temperature Pulse Rate 61 Respiratory Rate 33 H Blood Pressure 83/55 L 90/55 L Pulse Oximetry 100 Oxygen Delivery Method 05/09/25 00:20 05/09/25 00:25 05/09/25 00:25 Temperature 95.7 F L 95.4 F L Pulse Rate 62 58 L Respiratory Rate Blood Pressure 78/44 L Pulse Oximetry 100 100 Oxygen Delivery Method 05/09/25 00:30 05/09/25 00:30 05/09/25 00:35 Temperature 95.2 F L Pulse Rate 56 L Respiratory Rate Blood Pressure 68/40 L 69/42 L Pulse Oximetry 100 Oxygen Delivery Method 05/09/25 00:35 05/09/25 00:40 05/09/25 00:40 Temperature 95.0 F L 94.8 F L Pulse Rate 54 L 50 L Respiratory Rate 16 Blood Pressure 93/55 L Pulse Oximetry 100 100 Oxygen Delivery Method 05/09/25 00:45 05/09/25 00:45 05/09/25 00:46 Temperature 94.6 F L Pulse Rate 52 L Respiratory Rate Blood Pressure 154/88 H 161/86 H Pulse Oximetry 100 Oxygen Delivery Method 05/09/25 00:46 05/09/25 00:50 05/09/25 00:50 Temperature 94.6 F L 94.6 F L Pulse Rate 48 L 50 L Respiratory Rate 16 16 Blood Pressure 157/87 H Pulse Oximetry 100 100 Oxygen Delivery Method 05/09/25 00:55 05/09/25 00:55 05/09/25 00:58 Temperature 94.6 F L Pulse Rate 71 Respiratory Rate 18 Blood Pressure 174/85 H 163/89 H Pulse Oximetry 100 Oxygen Delivery Method 05/09/25 00:58 05/09/25 01:00 05/09/25 01:00 Temperature 94.5 F L 94.3 F L Pulse Rate 72 72 Respiratory Rate 23 Blood Pressure 155/80 H Pulse Oximetry 100 100 Oxygen Delivery Method 05/09/25 01:05 05/09/25 01:05 05/09/25 01:10 Temperature 94.3 F L Pulse Rate 57 L Respiratory Rate Blood Pressure 129/59 L 136/63 Pulse Oximetry 100 Oxygen Delivery Method 05/09/25 01:10 05/09/25 01:15 05/09/25 01:15 Temperature 94.3 F L 94.5 F L Pulse Rate 73 68 Respiratory Rate Blood Pressure 135/72 Pulse Oximetry 100 100 Oxygen Delivery Method 05/09/25 01:20 05/09/25 01:20 05/09/25 01:26 Temperature 94.5 F L Pulse Rate 61 Respiratory Rate 24 Blood Pressure 127/63 136/70 Pulse Oximetry 100 Oxygen Delivery Method 05/09/25 01:26 05/09/25 01:30 05/09/25 01:30 Temperature 94.6 F L 94.6 F L Pulse Rate 83 70 Respiratory Rate Blood Pressure 130/64 Pulse Oximetry 100 100 Oxygen Delivery Method 05/09/25 01:35 05/09/25 01:35 05/09/25 01:40 Temperature 94.8 F L Pulse Rate 79 Respiratory Rate Blood Pressure 146/72 H 127/60 Pulse Oximetry 99 Oxygen Delivery Method 05/09/25 01:40 05/09/25 01:45 05/09/25 01:45 Temperature 94.8 F L 95.0 F L Pulse Rate 61 80 Respiratory Rate Blood Pressure 135/65 Pulse Oximetry 100 100 Oxygen Delivery Method 05/09/25 01:50 05/09/25 01:50 05/09/25 01:55 Temperature 95.2 F L 95.2 F L Pulse Rate 77 57 L Respiratory Rate 16 Blood Pressure 150/69 H Pulse Oximetry 100 100 Oxygen Delivery Method 05/09/25 01:55 05/09/25 02:00 05/09/25 02:00 Temperature 95.4 F L Pulse Rate 57 L Respiratory Rate Blood Pressure 131/58 L 125/58 L Pulse Oximetry 100 Oxygen Delivery Method 05/09/25 02:05 05/09/25 02:05 05/09/25 02:10 Temperature 95.4 F L Pulse Rate 56 L Respiratory Rate Blood Pressure 127/59 L 104/55 L Pulse Oximetry 100 Oxygen Delivery Method 05/09/25 02:10 05/09/25 02:15 05/09/25 02:15 Temperature 95.5 F L 95.5 F L Pulse Rate 57 L 55 L Respiratory Rate Blood Pressure 78/44 L Pulse Oximetry 100 99 Oxygen Delivery Method 05/09/25 02:20 05/09/25 02:20 05/09/25 02:25 Temperature 95.5 F L Pulse Rate 52 L Respiratory Rate 18 Blood Pressure 102/58 L 127/70 Pulse Oximetry 100 Oxygen Delivery Method 05/09/25 02:25 05/09/25 02:30 05/09/25 02:30 Temperature 95.7 F L 95.9 F L Pulse Rate 50 L 51 L Respiratory Rate 21 24 Blood Pressure 133/72 Pulse Oximetry 100 100 Oxygen Delivery Method 05/09/25 02:35 05/09/25 02:35 05/09/25 02:40 Temperature 96.1 F L Pulse Rate 52 L Respiratory Rate 24 Blood Pressure 135/71 127/66 Pulse Oximetry 100 Oxygen Delivery Method 05/09/25 02:40 05/09/25 02:45 05/09/25 02:45 Temperature 96.1 F L 96.3 F L Pulse Rate 53 L 54 L Respiratory Rate 18 24 Blood Pressure 130/66 Pulse Oximetry 100 100 Oxygen Delivery Method 05/09/25 02:50 05/09/25 02:50 05/09/25 02:55 Temperature 96.3 F L 96.3 F L Pulse Rate 54 L 54 L Respiratory Rate 24 25 H Blood Pressure 130/69 Pulse Oximetry 100 99 Oxygen Delivery Method 05/09/25 02:55 05/09/25 03:00 05/09/25 03:00 Temperature 96.4 F L Pulse Rate 57 L Respiratory Rate 30 H Blood Pressure 130/66 137/68 Pulse Oximetry 99 Oxygen Delivery Method 05/09/25 03:05 05/09/25 03:05 05/09/25 03:09 Temperature 96.4 F L 96.6 F L Pulse Rate 54 L 55 L Respiratory Rate 19 26 H Blood Pressure 130/64 Pulse Oximetry 99 99 Oxygen Delivery Method 05/09/25 03:10 05/09/25 03:11 05/09/25 03:15 Temperature Pulse Rate Respiratory Rate Blood Pressure 134/68 133/65 138/68 Pulse Oximetry Oxygen Delivery Method 05/09/25 03:30 05/09/25 03:30 Temperature 97.2 F L Pulse Rate 54 L Respiratory Rate 18 Blood Pressure 129/65 Pulse Oximetry 100 Oxygen Delivery Method Oxygen Delivery Method Mechanical Ventilation Const General: patient mechanically ventilated Resp Auscultation: rhonchi and vesicular breath sounds Cardio Rate: regular rate Rhythm: regular rhythm GI Inspection: normal to inspection Auscultation: normal bowel sounds Other: NG to sxn- returning 200cc of clear liquid Objective Labs 05/09/25 00:10 05/09/25 00:10 Labs: Laboratory Results - last 24 hr 05/09/25 05/09/25 05/09/25 00:10 00:19 00:19 WBC 3.9 L RBC 4.05 Hgb 12.0 Hct 35.8 L MCV 88.4 MCH 29.6 MCHC 33.4 RDW 14.0 Plt Count 201 Neut % (Auto) 60.2 Lymph % (Auto) 32.6 Angelina % (Auto) 4.9 Eos % (Auto) 1.3 L Baso % (Auto) 1.0 Neut # (Auto) 2400 Lymph # (Auto) 1300 Angelina # (Auto) 200 Eos # (Auto) 0 Baso # (Auto) 0 ABG Sample Site ABG pH ABG pCO2 ABG pO2 ABG HCO3 ABG Total CO2 ABG O2 Saturation ABG Base Excess Aldo Test Respiration Rate Mode of Support FiO2 % PEEP or CPAP Sodium 146 H Potassium 3.4 Chloride 114 H Carbon Dioxide 20 L BUN 10 Creatinine 0.52 Estimated GFR > 60 BUN/Creatinine Ratio 19.2 Glucose 104 H Lactate 2.0 Calcium 8.4 Magnesium 2.0 Total Bilirubin 0.4 AST 19 ALT 11 Alkaline Phosphatase 78 Troponin I < 0.012 NT-Pro-B Natriuret Pep 63 Total Protein 6.6 Albumin 4.0 Globulin 2.6 Albumin/Globulin Ratio 1.5 Lipase 161 Urine Color Yellow Urine Appearance Clear Urine pH 5.5 TNP Ur Specific Cordell <=1.005 Urine Protein Negative Urine Glucose (UA) Negative Urine Ketones Negative Urine Occult Blood Negative Urine Nitrate Negative Urine Bilirubin Negative Urine Urobilinogen 0.2 Ur Leukocyte Esterase Negative Urine RBC None seen Urine WBC None seen Ur Squamous Epith Cells None seen Urine Bacteria None seen Ur Culture Indicated? Cult not indicated Vol Urine Centrifuged 10ml (spun) U Opiates 300ng/mL cut Negative Ur Oxycodone Screen Negative Urine Methadone Screen Negative Acetaminophen < 10 Ur Barbiturates Screen Negative U Tricyclic Antidepress Negative Ur Phencyclidine Scrn Negative Ur Amphetamines Screen Negative U Methamphetamines Scrn Negative Ur MDMA Scrn (Ecstasy) Negative U Benzodiazepines Scrn Negative Urine Cocaine Screen Negative U Marijuana (THC) Screen Negative Urine Specific Cordell TNP Ethyl Alcohol 219 H Ur Creatinine TNP 05/09/25 01:14 WBC RBC Hgb Hct MCV MCH MCHC RDW Plt Count Neut % (Auto) Lymph % (Auto) Angelina % (Auto) Eos % (Auto) Baso % (Auto) Neut # (Auto) Lymph # (Auto) Angelina # (Auto) Eos # (Auto) Baso # (Auto) ABG Sample Site Right radial ABG pH 7.20 L* ABG pCO2 50.3 H ABG pO2 273 H* ABG HCO3 20 L ABG Total CO2 19 L ABG O2 Saturation 100 ABG Base Excess -8.2 L Aldo Test N/a Respiration Rate 16 Mode of Support Assist cont ventilat FiO2 % 60.0 % PEEP or CPAP 5 Sodium Potassium Chloride Carbon Dioxide BUN Creatinine Estimated GFR BUN/Creatinine Ratio Glucose Lactate Calcium Magnesium Total Bilirubin AST ALT Alkaline Phosphatase Troponin I NT-Pro-B Natriuret Pep Total Protein Albumin Globulin Albumin/Globulin Ratio Lipase Urine Color Urine Appearance Urine pH Ur Specific Cordell Urine Protein Urine Glucose (UA) Urine Ketones Urine Occult Blood Urine Nitrate Urine Bilirubin Urine Urobilinogen Ur Leukocyte Esterase Urine RBC Urine WBC Ur Squamous Epith Cells Urine Bacteria Ur Culture Indicated? Vol Urine Centrifuged U Opiates 300ng/mL cut Ur Oxycodone Screen Urine Methadone Screen Acetaminophen Ur Barbiturates Screen U Tricyclic Antidepress Ur Phencyclidine Scrn Ur Amphetamines Screen U Methamphetamines Scrn Ur MDMA Scrn (Ecstasy) U Benzodiazepines Scrn Urine Cocaine Screen U Marijuana (THC) Screen Urine Specific Cordell Ethyl Alcohol Ur Creatinine Assessment & Plan Assessment & Plan narrative: 1. acute respiratory Failure-hypercarbic- tele-college basketball coach consulted, awaiting their recommendations, currently mechanically ventilated on the following settings: Vt-43-, RR-18, Peep +5, FiO2-35%, ABG was 7.2/50/273. We are repeating the ABG, currently on Precedex for sedation, Levophed due to hypotension, remains in the ICU, 2. Seizure Disorder- We do not have EEG available at this facility, but unable to transfer at this time. We do not have any indication of continued seizure activity unless it is sbu-clinical, We do not have neurology available at our facility either. The pt has received 1500mg of Keppra in the Er and we will continue her on 1000mg BID IV. Q4 hr neuro checks, She has not taken any of her meds in quite some time. 3. Alcoholism- hx of and was positive on presenting labs for this. Will have IV ativan available and start on IV thiamine, MVI if available, neuro checks, 4. metabolic encephalopathy- due to the seizure, alcoholism, above mentioned problems 5. hx of polysubstance abuse with methamphetamine use-monitor for withdrawals 6. Homelessness- noted risk factor I have discussed the pt's presenting symptoms, labs and imaging with the ER provider. I have consulted our tele-college basketball coach and awaiting their recommendations. I, Dr. Anupam Rodriguez in [place] has seen and evaluated Raimundo Walsh in [facility],using audio/video technnologist of telemedicine with assistance of the nursing staff. Time-Based Coding :: [TOTAL MINUTES] spent with patient and on the chart (including review of chart, obtaining history, exam, reviewing outside data, placing orders, documenting exam and treatment plan, and counseling patient) on [DATE].
[2025-05-09 04:25] LABS: Base Excess ABG -6.1 mmol/L (-2-3); Blood Gas Collection Site Right Radial; Blood Gas Mode Assist Cont Ventilat; HCO3 ABG 19 mmol/L (23-27); Oxygen Saturation ABG 98 % (95-100); PCO2 ABG 34.1 mmHg (35-45); PEEP 5; PO2 ABG 115 mmHg (80-100); Respiratory Rate 18; TCO2 ABG 18 mmol/L (23-27); pH ABG 7.35 (7.35-7.45)
--- NOTE | 2025-05-09 04:27 | RT ---
0422 - Dr. Rodriguez notified regarding most recent ABG results of 7.35/34.1/115.3/18.8/-6.1 on VC-AC 18/430/+5/35%. FiO2 titrated to 30% post ABG. Pt tolerating well.
[2025-05-09 04:35] LABS: Add Manual Diff / Slide Review NO; Basophils Absolute Auto 100 /uL (0-100); Basophils Percent Auto 1.8 % (0-2); Eosinophils Absolute Auto 0 /uL (0-450); Eosinophils Percent Auto 0.2 % (2-4); Hematocrit 38.1 % (36-46); Hemoglobin 12.6 g/dL (12.0-16.0); Lymphocytes Absolute Auto 1800 /uL (1100-4500); Lymphocytes Percent Auto 36.3 % (25-40); Monocytes Absolute Auto 300 /uL (0-900); Neutrophils Absolute Auto 2800 /uL (1500-7000); Neutrophils Percent Auto 56.7 % (50-75); Platelet Count 228 X10^3/uL (150-400); Red Blood Cell Count 4.33 X10^6/uL (4.0-5.2); Red Cell Distribution Width 14.3 % (11.6-14.8)
[2025-05-09] MEDS: SODIUM CHLORIDE 0.9% 1,000 ML 100 ML IV ×2 (04:37→15:01)
[2025-05-09 05:09] LABS: Lactate (Lactic Acid) 2.1 mmol/L (0.7-2.1)
[2025-05-09 05:10] LABS: Alanine Aminotransferase 33 IU/L (<35); Albumin 3.8 g/dL (3.5-5.0); Albumin Globulin Ratio 1.5 (1.0-2.8); Alkaline Phosphatase 76 U/L (38-126); Aspartate Aminotransferase 67 IU/L (14-36); BUN Creatinine Ratio 15.4 (6-22); Bilirubin Total 0.3 mg/dL (0.2-1.3); Blood Urea Nitrogen 8 mg/dL (7-17); Carbon Dioxide 16 mmol/L (22-32); Chloride 118 mmol/L (98-107); Estimated Glomerular Filt Rate > 60 mL/min (>60); Globulin 2.5 g/dL (1.7-4.1); Glucose 164 mg/dL (70-99); HEMOLYSIS < 15 (0-50); Magnesium 1.8 mg/dL (1.6-2.3); Potassium 3.8 mmol/L (3.4-5.1); Sodium 146 mmol/L (137-145); Total Protein 6.3 g/dL (6.3-8.2)
[2025-05-09] MEDS: dexmedeTOMIDine in 0.9 % NaCL 400 MCG/100 ML PLAST..BAG 25.055 MCG IV (05:59)
[2025-05-09 06:06] LABS: Reflexed Lactate in 2 Hours Y
[2025-05-09 06:31] LABS: Lactate 2HR (Lactic Acid Rflx) 2.5 mmol/L (0.7-2.1)
--- NOTE | 2025-05-09 07:23 | PC.NURSE ---
Bedside handoff report given to TRACI Walker at 0723. Care relinquished at this time.
--- NOTE | 2025-05-09 07:33 | PM.CN.EICU ---
History of Present Illness Consult details IF CAMERA ACTIVATED, patient seen via real-time interactive audiovisual communication: Camera not activated Chief complaint: seizure Reason for consult: Acute hypoxic respiratory failure Consent obtained for tele-site administrator care: Yes Patient Location: ICU Provider location (State): [place] Other participants/roles: Bedside RN Narrative: The history was obtained from reviewing EMR and from my discussion with the bedside team. Briefly, a 64 y/o female with h/o known seizure disorder, alcoholism, methamphetamine abuse who stopped several weeks ago, now homeless, presented last night with a witnessed seizure across the street from the hospital. She was administered versed which stopped the seizure but this was soon followed by another seizure shortly at which point she was intubated to protect her airway. The patient was then admitted to ICU for further management. At the time of my evaluation, she was intubated, on minimal vent settings with FiO2 35%, PEEP 5, on precedex gtt, awake, following commands, and on low dose norepinephrine gtt.? Initial workup reviewed.? Most recent ABG with pH 7.35, PCO2 34.1, PO215, bicarb 19, base excess -6.1.? Initial blood chemistry notable for sodium 146, chloride 118, CO2 16 glucose 164, lactate 2.5, AST 67.? Rest of the labs were unremarkable.? Blood alcohol level was elevated at 219.? Urine tox screen was negative. [facility] Medical History (Updated 05/09/25 @ 02:32 by Courtney Schultz MD) Hyperlipidemia History of kidney stones Peripheral arterial disease Hypertension COPD (chronic obstructive pulmonary disease) Methamphetamine abuse Continuous tobacco abuse Alcohol use disorder Migraine with aura Post-traumatic epilepsy Social History Smoking Status: Unknown if ever smoked alcohol intake: current Current Medications Current Medications Medications: Home Medications fluoxetine 40 mg capsule (Prozac) 20 mg PO QDAY ##0 01/30/13 [History Confirmed 05/09/25] propranolol 20 mg tablet 20 mg PO BID #60 tabs 10/21/16 [Rx Confirmed 05/09/25] ibuprofen 200 mg capsule (Advil Liqui-Gel) 200 mg PO ##0 11/11/16 [History] ketorolac 10 mg tablet 10 mg PO Q6HP PRN pain #20 tabs 11/11/16 [Rx Confirmed 05/09/25] phenytoin sodium extended 100 mg capsule (Dilantin Extended) 500 mg (5 x 100 mg) PO SEE INSTRUCTIONS #125 tabs 12/23/16 [Rx Confirmed 05/09/25] divalproex 500 mg tablet,extended release 24 hr (Depakote ER) 0 PO SEE INSTRUCTIONS #100 tabs 12/21/17 [Rx] levetiracetam 500 mg tablet (Keppra) 500 mg PO .HS #30 tabs 03/04/25 [Rx Confirmed 05/09/25] levetiracetam 750 mg tablet (Keppra) 750 mg PO DAILY #30 tabs 03/04/25 [Rx Confirmed 05/09/25] topiramate 100 mg tablet 150 mg (1.5 x 100 mg) PO BID #90 tabs 03/04/25 [Rx Confirmed 05/09/25] hydrocodone 5 mg-acetaminophen 325 mg tablet 1 tab PO Q4HP PRN pain 05/09/25 [History Confirmed 05/09/25] Visit Medications (administered) Generic Name Dose Route Start Last Admin Trade Name Freq PRN Reason Stop Dose Admin dexmedeTOMIDine in 0.9 % NaCL 400 mcg in 100 mls @ 3.341 mls/hr 05/09/25 00:15 05/09/25 05:59 Precedex IV 1.5 mcg/kg/hr TITRATE SUGAR 25.055 mls/hr Protocol Administration 0.2 MCG/KG/HR NOREPINEPHRINE BITARTRATE/D5W 4 mg in 250 mls @ 25.055 mls/hr 05/09/25 00:32 05/09/25 06:43 Levophed IV 0.025 mcg/kg/min TITRATE SUGAR 6.264 mls/hr Protocol Titration 0.1 MCG/KG/MIN Sodium Chloride 1,000 mls @ 100 mls/hr 05/09/25 03:15 05/09/25 04:37 Normal Saline 0.9% IV 100 mls/hr CONT SUGAR Administration Exam Vital Signs (past 8 hours): - 05/09/25 00:00 05/09/25 00:00 05/09/25 00:02 Temperature 94.1 F L Pulse Rate 65 66 Respiratory Rate 16 14 Blood Pressure 91/53 L 95/51 L Pulse Oximetry 100 100 Oxygen Delivery Method Mechanical Ventilation Fraction of Inspired Oxygen 05/09/25 00:05 05/09/25 00:05 05/09/25 00:09 Temperature Pulse Rate 62 Respiratory Rate 16 Blood Pressure 78/46 L 110/59 L Pulse Oximetry 100 Oxygen Delivery Method Fraction of Inspired Oxygen 05/09/25 00:09 05/09/25 00:10 05/09/25 00:10 Temperature Pulse Rate 75 68 Respiratory Rate 16 34 H Blood Pressure 98/55 L Pulse Oximetry 100 100 Oxygen Delivery Method Fraction of Inspired Oxygen 05/09/25 00:15 05/09/25 00:15 05/09/25 00:20 Temperature Pulse Rate 61 Respiratory Rate 33 H Blood Pressure 83/55 L 90/55 L Pulse Oximetry 100 Oxygen Delivery Method Fraction of Inspired Oxygen 05/09/25 00:20 05/09/25 00:25 05/09/25 00:25 Temperature 95.7 F L 95.4 F L Pulse Rate 62 58 L Respiratory Rate Blood Pressure 78/44 L Pulse Oximetry 100 100 Oxygen Delivery Method Fraction of Inspired Oxygen 05/09/25 00:30 05/09/25 00:30 05/09/25 00:35 Temperature 95.2 F L Pulse Rate 56 L Respiratory Rate Blood Pressure 68/40 L 69/42 L Pulse Oximetry 100 Oxygen Delivery Method Fraction of Inspired Oxygen 05/09/25 00:35 05/09/25 00:40 05/09/25 00:40 Temperature 95.0 F L 94.8 F L Pulse Rate 54 L 50 L Respiratory Rate 16 Blood Pressure 93/55 L Pulse Oximetry 100 100 Oxygen Delivery Method Fraction of Inspired Oxygen 05/09/25 00:45 05/09/25 00:45 05/09/25 00:46 Temperature 94.6 F L Pulse Rate 52 L Respiratory Rate Blood Pressure 154/88 H 161/86 H Pulse Oximetry 100 Oxygen Delivery Method Fraction of Inspired Oxygen 05/09/25 00:46 05/09/25 00:50 05/09/25 00:50 Temperature 94.6 F L 94.6 F L Pulse Rate 48 L 50 L Respiratory Rate 16 16 Blood Pressure 157/87 H Pulse Oximetry 100 100 Oxygen Delivery Method Fraction of Inspired Oxygen 05/09/25 00:55 05/09/25 00:55 05/09/25 00:58 Temperature 94.6 F L Pulse Rate 71 Respiratory Rate 18 Blood Pressure 174/85 H 163/89 H Pulse Oximetry 100 Oxygen Delivery Method Fraction of Inspired Oxygen 05/09/25 00:58 05/09/25 01:00 05/09/25 01:00 Temperature 94.5 F L 94.3 F L Pulse Rate 72 72 Respiratory Rate 23 Blood Pressure 155/80 H Pulse Oximetry 100 100 Oxygen Delivery Method Fraction of Inspired Oxygen 05/09/25 01:05 05/09/25 01:05 05/09/25 01:10 Temperature 94.3 F L Pulse Rate 57 L Respiratory Rate Blood Pressure 129/59 L 136/63 Pulse Oximetry 100 Oxygen Delivery Method Fraction of Inspired Oxygen 05/09/25 01:10 05/09/25 01:15 05/09/25 01:15 Temperature 94.3 F L 94.5 F L Pulse Rate 73 68 Respiratory Rate Blood Pressure 135/72 Pulse Oximetry 100 100 Oxygen Delivery Method Fraction of Inspired Oxygen 05/09/25 01:20 05/09/25 01:20 05/09/25 01:26 Temperature 94.5 F L Pulse Rate 61 Respiratory Rate 24 Blood Pressure 127/63 136/70 Pulse Oximetry 100 Oxygen Delivery Method Fraction of Inspired Oxygen 05/09/25 01:26 05/09/25 01:30 05/09/25 01:30 Temperature 94.6 F L 94.6 F L Pulse Rate 83 70 Respiratory Rate Blood Pressure 130/64 Pulse Oximetry 100 100 Oxygen Delivery Method Fraction of Inspired Oxygen 05/09/25 01:35 05/09/25 01:35 05/09/25 01:40 Temperature 94.8 F L Pulse Rate 79 Respiratory Rate Blood Pressure 146/72 H 127/60 Pulse Oximetry 99 Oxygen Delivery Method Fraction of Inspired Oxygen 05/09/25 01:40 05/09/25 01:45 05/09/25 01:45 Temperature 94.8 F L 95.0 F L Pulse Rate 61 80 Respiratory Rate Blood Pressure 135/65 Pulse Oximetry 100 100 Oxygen Delivery Method Fraction of Inspired Oxygen 05/09/25 01:50 05/09/25 01:50 05/09/25 01:55 Temperature 95.2 F L 95.2 F L Pulse Rate 77 57 L Respiratory Rate 16 Blood Pressure 150/69 H Pulse Oximetry 100 100 Oxygen Delivery Method Fraction of Inspired Oxygen 05/09/25 01:55 05/09/25 02:00 05/09/25 02:00 Temperature 95.4 F L Pulse Rate 57 L Respiratory Rate Blood Pressure 131/58 L 125/58 L Pulse Oximetry 100 Oxygen Delivery Method Fraction of Inspired Oxygen 05/09/25 02:05 05/09/25 02:05 05/09/25 02:10 Temperature 95.4 F L Pulse Rate 56 L Respiratory Rate Blood Pressure 127/59 L 104/55 L Pulse Oximetry 100 Oxygen Delivery Method Fraction of Inspired Oxygen 05/09/25 02:10 05/09/25 02:15 05/09/25 02:15 Temperature 95.5 F L 95.5 F L Pulse Rate 57 L 55 L Respiratory Rate Blood Pressure 78/44 L Pulse Oximetry 100 99 Oxygen Delivery Method Fraction of Inspired Oxygen 05/09/25 02:20 05/09/25 02:20 05/09/25 02:25 Temperature 95.5 F L Pulse Rate 52 L Respiratory Rate 18 Blood Pressure 102/58 L 127/70 Pulse Oximetry 100 Oxygen Delivery Method Fraction of Inspired Oxygen 05/09/25 02:25 05/09/25 02:30 05/09/25 02:30 Temperature 95.7 F L 95.9 F L Pulse Rate 50 L 51 L Respiratory Rate 21 24 Blood Pressure 133/72 Pulse Oximetry 100 100 Oxygen Delivery Method Fraction of Inspired Oxygen 05/09/25 02:35 05/09/25 02:35 05/09/25 02:40 Temperature 96.1 F L Pulse Rate 52 L Respiratory Rate 24 Blood Pressure 135/71 127/66 Pulse Oximetry 100 Oxygen Delivery Method Fraction of Inspired Oxygen 05/09/25 02:40 05/09/25 02:45 05/09/25 02:45 Temperature 96.1 F L 96.3 F L Pulse Rate 53 L 54 L Respiratory Rate 18 24 Blood Pressure 130/66 Pulse Oximetry 100 100 Oxygen Delivery Method Fraction of Inspired Oxygen 05/09/25 02:50 05/09/25 02:50 05/09/25 02:55 Temperature 96.3 F L 96.3 F L Pulse Rate 54 L 54 L Respiratory Rate 24 25 H Blood Pressure 130/69 Pulse Oximetry 100 99 Oxygen Delivery Method Fraction of Inspired Oxygen 05/09/25 02:55 05/09/25 03:00 05/09/25 03:00 Temperature 96.4 F L Pulse Rate 57 L Respiratory Rate 30 H Blood Pressure 130/66 137/68 Pulse Oximetry 99 Oxygen Delivery Method Fraction of Inspired Oxygen 05/09/25 03:05 05/09/25 03:05 05/09/25 03:09 Temperature 96.4 F L 96.6 F L Pulse Rate 54 L 55 L Respiratory Rate 19 26 H Blood Pressure 130/64 Pulse Oximetry 99 99 Oxygen Delivery Method Fraction of Inspired Oxygen 05/09/25 03:10 05/09/25 03:11 05/09/25 03:15 Temperature Pulse Rate Respiratory Rate Blood Pressure 134/68 133/65 138/68 Pulse Oximetry Oxygen Delivery Method Fraction of Inspired Oxygen 05/09/25 03:30 05/09/25 03:30 05/09/25 03:46 Temperature 97.2 F L Pulse Rate 54 L Respiratory Rate 18 Blood Pressure 129/65 102/56 L Pulse Oximetry 100 Oxygen Delivery Method Fraction of Inspired Oxygen 05/09/25 03:46 05/09/25 03:52 05/09/25 03:56 Temperature 97.5 F L 97.5 F L Pulse Rate 56 L 54 L Respiratory Rate 18 18 Blood Pressure 131/69 Pulse Oximetry 100 100 Oxygen Delivery Method Mechanical Ventilation Fraction of Inspired Oxygen 05/09/25 05:54 05/09/25 06:00 05/09/25 06:00 Temperature 98.4 F Pulse Rate 49 L Respiratory Rate 18 Blood Pressure 134/75 Pulse Oximetry 100 Oxygen Delivery Method Mechanical Ventilation Fraction of Inspired Oxygen 05/09/25 06:24 05/09/25 06:30 05/09/25 06:30 Temperature 98.6 F 98.4 F Pulse Rate 48 L 49 L Respiratory Rate 18 18 Blood Pressure 135/73 Pulse Oximetry 100 100 Oxygen Delivery Method Fraction of Inspired Oxygen 05/09/25 06:44 05/09/25 06:44 05/09/25 06:58 Temperature 98.4 F 98.6 F Pulse Rate 48 L 50 L Respiratory Rate 18 18 Blood Pressure 130/70 123/66 Pulse Oximetry 100 100 Oxygen Delivery Method Fraction of Inspired Oxygen 30 Fraction of Inspired Oxygen 30 Oxygen Delivery Method Mechanical Ventilation Objective Labs 05/09/25 04:22 05/09/25 04:22 Labs: Laboratory Results - last 24 hr 05/09/25 05/09/25 05/09/25 00:10 00:19 00:19 WBC 3.9 L RBC 4.05 Hgb 12.0 Hct 35.8 L MCV 88.4 MCH 29.6 MCHC 33.4 RDW 14.0 Plt Count 201 Neut % (Auto) 60.2 Lymph % (Auto) 32.6 [place] % (Auto) 4.9 Eos % (Auto) 1.3 L Baso % (Auto) 1.0 Neut # (Auto) 2400 Lymph # (Auto) 1300 [place] # (Auto) 200 Eos # (Auto) 0 Baso # (Auto) 0 ABG Sample Site ABG pH ABG pCO2 ABG pO2 ABG HCO3 ABG Total CO2 ABG O2 Saturation ABG Base Excess Aldo Test Respiration Rate Mode of Support FiO2 % PEEP or CPAP Sodium 146 H Potassium 3.4 Chloride 114 H Carbon Dioxide 20 L BUN 10 Creatinine 0.52 Estimated GFR > 60 BUN/Creatinine Ratio 19.2 Glucose 104 H Lactate 2.0 Calcium 8.4 Magnesium 2.0 Total Bilirubin 0.4 AST 19 ALT 11 Alkaline Phosphatase 78 Troponin I < 0.012 NT-Pro-B Natriuret Pep 63 Total Protein 6.6 Albumin 4.0 Globulin 2.6 Albumin/Globulin Ratio 1.5 Lipase 161 Urine Color Yellow Urine Appearance Clear Urine pH 5.5 TNP Ur Specific [place] <=1.005 Urine Protein Negative Urine Glucose (UA) Negative Urine Ketones Negative Urine Occult Blood Negative Urine Nitrate Negative Urine Bilirubin Negative Urine Urobilinogen 0.2 Ur Leukocyte Esterase Negative Urine RBC None seen Urine WBC None seen Ur Squamous Epith Cells None seen Urine Bacteria None seen Ur Culture Indicated? Cult not indicated Vol Urine Centrifuged 10ml (spun) U Opiates 300ng/mL cut Negative Ur Oxycodone Screen Negative Urine Methadone Screen Negative Acetaminophen < 10 Ur Barbiturates Screen Negative U Tricyclic Antidepress Negative Ur Phencyclidine Scrn Negative Ur Amphetamines Screen Negative U Methamphetamines Scrn Negative Ur MDMA Scrn (Ecstasy) Negative U Benzodiazepines Scrn Negative Urine Cocaine Screen Negative U Marijuana (THC) Screen Negative Urine Specific [place] TNP Ethyl Alcohol 219 H Ur Creatinine TNP 05/09/25 05/09/25 05/09/25 01:14 04:19 04:22 WBC 5.0 RBC 4.33 Hgb 12.6 Hct 38.1 MCV 88.0 MCH 29.0 MCHC 33.0 RDW 14.3 Plt Count 228 Neut % (Auto) 56.7 Lymph % (Auto) 36.3 [place] % (Auto) 5.0 Eos % (Auto) 0.2 L Baso % (Auto) 1.8 Neut # (Auto) 2800 Lymph # (Auto) 1800 [place] # (Auto) 300 Eos # (Auto) 0 Baso # (Auto) 100 ABG Sample Site Right radial Right radial ABG pH 7.20 L* 7.35 ABG pCO2 50.3 H 34.1 L ABG pO2 273 H* 115 H ABG HCO3 20 L 19 L ABG Total CO2 19 L 18 L ABG O2 Saturation 100 98 ABG Base Excess -8.2 L -6.1 L Aldo Test N/a N/a Respiration Rate 16 18 Mode of Support Assist cont ventilat Assist cont ventilat FiO2 % 60.0 % 35.0 % PEEP or CPAP 5 5 Sodium 146 H Potassium 3.8 Chloride 118 H Carbon Dioxide 16 L BUN 8 Creatinine 0.52 Estimated GFR > 60 BUN/Creatinine Ratio 15.4 Glucose 164 H Lactate 2.1 Calcium 8.0 L Magnesium 1.8 Total Bilirubin 0.3 AST 67 H ALT 33 Alkaline Phosphatase 76 Troponin I NT-Pro-B Natriuret Pep Total Protein 6.3 Albumin 3.8 Globulin 2.5 Albumin/Globulin Ratio 1.5 Lipase Urine Color Urine Appearance Urine pH Ur Specific [place] Urine Protein Urine Glucose (UA) Urine Ketones Urine Occult Blood Urine Nitrate Urine Bilirubin Urine Urobilinogen Ur Leukocyte Esterase Urine RBC Urine WBC Ur Squamous Epith Cells Urine Bacteria Ur Culture Indicated? Vol Urine Centrifuged U Opiates 300ng/mL cut Ur Oxycodone Screen Urine Methadone Screen Acetaminophen Ur Barbiturates Screen U Tricyclic Antidepress Ur Phencyclidine Scrn Ur Amphetamines Screen U Methamphetamines Scrn Ur MDMA Scrn (Ecstasy) U Benzodiazepines Scrn Urine Cocaine Screen U Marijuana (THC) Screen Urine Specific [place] Ethyl Alcohol Ur Creatinine 05/09/25 06:10 WBC RBC Hgb Hct MCV MCH MCHC RDW Plt Count Neut % (Auto) Lymph % (Auto) [place] % (Auto) Eos % (Auto) Baso % (Auto) Neut # (Auto) Lymph # (Auto) [place] # (Auto) Eos # (Auto) Baso # (Auto) ABG Sample Site ABG pH ABG pCO2 ABG pO2 ABG HCO3 ABG Total CO2 ABG O2 Saturation ABG Base Excess Aldo Test Respiration Rate Mode of Support FiO2 % PEEP or CPAP Sodium Potassium Chloride Carbon Dioxide BUN Creatinine Estimated GFR BUN/Creatinine Ratio Glucose Lactate 2.5 H Calcium Magnesium Total Bilirubin AST ALT Alkaline Phosphatase Troponin I NT-Pro-B Natriuret Pep Total Protein Albumin Globulin Albumin/Globulin Ratio Lipase Urine Color Urine Appearance Urine pH Ur Specific [place] Urine Protein Urine Glucose (UA) Urine Ketones Urine Occult Blood Urine Nitrate Urine Bilirubin Urine Urobilinogen Ur Leukocyte Esterase Urine RBC Urine WBC Ur Squamous Epith Cells Urine Bacteria Ur Culture Indicated? Vol Urine Centrifuged U Opiates 300ng/mL cut Ur Oxycodone Screen Urine Methadone Screen Acetaminophen Ur Barbiturates Screen U Tricyclic Antidepress Ur Phencyclidine Scrn Ur Amphetamines Screen U Methamphetamines Scrn Ur MDMA Scrn (Ecstasy) U Benzodiazepines Scrn Urine Cocaine Screen U Marijuana (THC) Screen Urine Specific [place] Ethyl Alcohol Ur Creatinine Assessment & Plan Assessment & Plan narrative: ASSESSMENT: # Acute respiratory failure, on mechanical ventilator support.? Intubated mainly for airway protection in the setting of recurrent seizures and also intoxication # Seizure disorder # Acute alcohol intoxication # Chronic alcoholism # History of polysubstance abuse with methamphetamine use # Homelessness PLAN: - Most recent vent settings reviewed.? Currently on minimal vent settings with FiO2 35% PEEP of 5.? Mental status much improved while on low-dose Precedex gtt.? More awake and responsive, follows simple commands per RN.? Will proceed with SBT with goal extubation with dietary restraint by INDUSTRIAL TECHNICIAN. - Once extubated, keep n.p.o. until passed swallow evaluation ideally by speech therapy.? Order PT/OT eval, out of bed to chair. - Continue with Keppra 1000 mg IV Twice daily. - Aspiration seizure precautions.? CT head without contrast rule out acute intracranial process. - Hypotension likely sedation induced.? Still requiring low-dose norepinephrine gtt. to maintain MAP >65.? Wean vasopressors as tolerated. - Very high risk for alcohol withdrawal.? Will monitor her in ICU at least for 24 hours after extubation.? Ordered CIWA protocol with as needed Ativan, add Librium once passed swallow evaluation.? Continue with IV thiamine, folate, MVI. ICU BUNDLE: # DVT prophylaxis: Lovenox subcu # GI prophylaxis: Protonix # Blood glucose, fairly controlled.? Goal 120-180 Time-Based Coding :: [TOTAL MINUTES] spent with patient and on the chart (including review of chart, obtaining history, exam, reviewing outside data, placing orders, documenting exam and treatment plan, and counseling patient) on [DATE].
[2025-05-09] MEDS: PANTOPRAZOLE 40 MG VIAL IV (09:02)
[2025-05-09] MEDS: ENOXAPARIN 40 MG/0.4 ML SYRINGE SUBCUT (09:02)
--- NOTE | 2025-05-09 09:35 | DIET.CONS ---
Dietary Consultation Note Admission Date: 05/09/2025 02:50 Assessment: 64 y F admitted after seizure for resp. failure and with acute alcohol intoxication. Dietitian consulted for NPO and on vent. Per tele-ICU note and per RN, pt doing SBT today. PMH of chronic alcoholism, polysubstance abuse with methamphetamine use, and homelessness increasing risk for malnutrition. Ht: 170 cm Wt: 66.814 kg BMI: 23.1 UBW: 58.963 kg on 03/24/25, 61-63 kg in 2022 Last BM: () MNA: Russell Score: 12 Diet: 05/09/25 03:06 NPO Diet Diet Modifications: NPO Type: NPO except for Meds Nutrition Percent Meal Consumed 0% 05/09/25 08:42 Labs: RBC 4.33 X10^6/uL (4.0-5.2) 05/09/25 04:22 Hgb 12.6 g/dL (12.0-16.0) 05/09/25 04:22 Hct 38.1 % (36-46) 05/09/25 04:22 Creatinine 0.52 mg/dL (0.52-1.04) 05/09/25 04:22 Lactate 2.5 mmol/L (0.7-2.1) H 05/09/25 06:10 NT-Pro-B Natriuret Pep 63 pg/mL (<125) 05/09/25 00:10 Nutrition Diagnosis: Inadequate oral intake r/t mechanical ventilation aeb NPO status Interventions: Will f/u if pt not extubated for possible enteral nutrition or if extubated, LENS ENGRAVER diet reccs and PO intakes. EER: [id number] kcals (25-30 kcals/kg per ICU) 80 g protein (1.2 g/kg per ICU) Monitoring/Evaluations: plan of care Electronically Signed by: Terra Crump 05/09/25 09:35 Clinical Dietitian [address] [address]
--- NOTE | 2025-05-09 10:39 | CM.DANOTE ---
B DCP Assessment Note pt is a 64yo F currently intubated in ICU. PMH of seizure disorder, alcoholism, methamphetamine abuse who stopped taking her meds at least several weeks ago and is homeless [facility] having a witnessed seizure across the street from the hospital (H&P). PCP none listed Payer MCR and ANNA ACADEMIC MANAGER reviewed EMR. BAL on arrival was 219. last drink time unknown. per RN, will attempt to extubate today. per provider notes, pt will likely go throughout withdrawal. remains on precedex drip. per provider in rounds, it pt seizes during extubation process likely will transfer to higher level of care. 4 recent ED visits with no admissions. per ED ACADEMIC MANAGER note, from 03/16/25, Patient states she used to go to AA meetings daily for 3 years, patient endorses hx of several inpatient rehab stays in my younger days. Patient denies any current [facility] or [facility] outpatient providers. Patient endorses she is currently homeless, patient states she was staying at [facility] and can return there in several days. ACADEMIC MANAGER discusses other [facility] options. Patient states that she has a [employer] bus pass.ACADEMIC MANAGER discusses detox with patient and discusses limitations due to patient's seizure disorder, patient endorses preference to d/c to community. ACADEMIC MANAGER provides patient with resources for food, housing, basic needs, [place] resources and lists of AA meetings. per chart, hx of friend Fermin as emergency contact. however, pt told medics no family/friend support. P: CM team will continue to follow closely for DCP/SW interventions once medically appropriate. AIDEN [place] Discharge Planning/Care Management CM Discharge Assessment Start: 05/09/25 03:01 Freq: Status: Active Protocol: Document 05/09/25 10:28 (Rec: 05/09/25 10:30 [id number]) Discharge Planning Assessment Assigned Discharge AIDEN [place] [employer] DPOA/Assigned juan c Khalil Designee Name Contact Information [phone] Advance Directives? No History Provided By Medical Record Prior Living Homeless Arrangements Is patient alert and No oriented? Discharge Plan Homeless Group Home Review Status In Process Please Provide Date 05/09/25 Initial DC Assessment Was Performed Next Review Type Continued Stay Review
[2025-05-09] MEDS: CHLORHEXIDINE GLUCONATE 15 ML CUP PO ×2 (11:49→17:49)
[2025-05-09] MEDS: levETIRAcetam 1,000 MG in SODIUM CHLORIDE 0.9% 100 ML 440 MG IV (11:49)
[2025-05-09 12:45] LABS: MRSA (Nasal) PCR NOT DETECTED (Not Detect)
--- NOTE | 2025-05-09 15:49 | PM.HP.1 ---
History of Present Illness History of Present Illness Date Patient Seen: 05/09/25 Chief complaint: seizure Narrative: Per overnight admitting provider, The pt is a 64 yo with a knkown seizure disorder, alcoholism, methamphetamine abuse who stopped taking her meds at least several weeks ago and is homeless was brought to the ER tonight after having a witnessed seizure across the street from the hospital. She was given versed which stopped the seizure and she resumed normal cognitive functioning but she had another seizure shortly after and the pt was given ketamine, rocuronium & intubated at that time to protect her airway. The pt was then transported to the ICU where I interviewed the pt. She is currently intubated, on Levophed, Precedex for sedation and was not responding to questions or commands, only has a cough and gag reflex. This is a 64 year old female with PMH of epilepsy, possible EtOH use and meth who was intubated after repeat seizure in the ER and admitted here. She is on minimal vent settings this AM. Please see H&P from overnight provider for additional information. She is on sedation vacation this morning, not really arousable and became apnic. Head CT was done overnight which was unremarkable. Last seen at [facility] ER for medication refill in 03/2025. Very long med list but most recent meds appeared to be Keppra 500 mg BID and Topamax 50 mg daily. [facility] Medical History (Updated 05/09/25 @ 02:32 by Courtney Schultz MD) Hyperlipidemia History of kidney stones Peripheral arterial disease Hypertension COPD (chronic obstructive pulmonary disease) Methamphetamine abuse Continuous tobacco abuse Alcohol use disorder Migraine with aura Post-traumatic epilepsy Social History Smoking Status: Unknown if ever smoked alcohol intake: current Meds Home Medications and Allergies Home Medications ?Medication ?Instructions ?Recorded ?Confirmed ?Type fluoxetine 40 mg capsule (Prozac) 20 mg PO QDAY ##0 01/30/13 05/09/25 History propranolol 20 mg tablet 20 mg PO BID #60 tabs 10/21/16 05/09/25 Rx ibuprofen 200 mg capsule (Advil 200 mg PO ##0 11/11/16 History Liqui-Gel) ketorolac 10 mg tablet 10 mg PO Q6HP PRN pain #20 tabs 11/11/16 05/09/25 Rx phenytoin sodium extended 100 mg 500 mg (5 x 100 mg) PO SEE 12/23/16 05/09/25 Rx capsule (Dilantin Extended) INSTRUCTIONS #125 tabs divalproex 500 mg tablet,extended 0 PO SEE INSTRUCTIONS #100 tabs 12/21/17 Rx release 24 hr (Depakote ER) levetiracetam 500 mg tablet 500 mg PO .HS #30 tabs 03/04/25 05/09/25 Rx (Keppra) levetiracetam 750 mg tablet 750 mg PO DAILY #30 tabs 03/04/25 05/09/25 Rx (Keppra) topiramate 100 mg tablet 150 mg (1.5 x 100 mg) PO BID #90 03/04/25 05/09/25 Rx tabs hydrocodone 5 mg-acetaminophen 325 1 tab PO Q4HP PRN pain 05/09/25 05/09/25 History mg tablet Allergies Allergy/AdvReac Type Severity Reaction Status Date / Time codeine (CODEINE) Allergy Unknown Verified 04/21/23 04:54 oxycodone (OXYCODONE) Allergy Unknown Verified 04/21/23 04:54 Review of Systems Review of Systems Narrative: Unable to obtain Exam Vital Signs (past 8 hours): - 05/09/25 08:00 05/09/25 08:00 05/09/25 08:15 Temperature 98.4 F 98.4 F Pulse Rate 49 L 48 L Respiratory Rate 18 18 Blood Pressure 126/72 Pulse Oximetry 100 99 Oxygen Delivery Method 05/09/25 08:30 05/09/25 08:30 05/09/25 08:45 Temperature 98.2 F Pulse Rate 48 L Respiratory Rate 18 Blood Pressure 111/61 111/61 Pulse Oximetry 99 Oxygen Delivery Method 05/09/25 08:45 05/09/25 09:00 05/09/25 09:00 Temperature 98.2 F 98.1 F Pulse Rate 47 L 46 L Respiratory Rate 18 18 Blood Pressure 116/63 Pulse Oximetry 99 99 Oxygen Delivery Method 05/09/25 09:15 05/09/25 09:15 05/09/25 09:30 Temperature 98.1 F Pulse Rate 44 L Respiratory Rate 18 Blood Pressure 121/65 115/61 Pulse Oximetry 100 Oxygen Delivery Method 05/09/25 09:30 05/09/25 09:45 05/09/25 09:45 Temperature 98.1 F 97.9 F Pulse Rate 46 L 59 L Respiratory Rate 18 20 Blood Pressure 110/50 L Pulse Oximetry 100 100 Oxygen Delivery Method 05/09/25 10:00 05/09/25 10:00 05/09/25 10:15 Temperature 97.9 F 97.9 F Pulse Rate 46 L 46 L Respiratory Rate 16 16 Blood Pressure 108/60 Pulse Oximetry 100 100 Oxygen Delivery Method 05/09/25 10:15 05/09/25 10:30 05/09/25 10:30 Temperature 97.7 F Pulse Rate 46 L Respiratory Rate 16 Blood Pressure 105/60 109/59 L Pulse Oximetry 100 Oxygen Delivery Method 05/09/25 10:45 05/09/25 10:45 05/09/25 11:00 Temperature 97.7 F 97.5 F L Pulse Rate 45 L 44 L Respiratory Rate 16 16 Blood Pressure 106/57 L Pulse Oximetry 100 100 Oxygen Delivery Method 05/09/25 11:00 05/09/25 11:15 05/09/25 11:15 Temperature 97.3 F L Pulse Rate 43 L Respiratory Rate 16 Blood Pressure 105/56 L 107/56 L Pulse Oximetry 100 Oxygen Delivery Method 05/09/25 11:30 05/09/25 11:30 05/09/25 11:45 Temperature 97.2 F L Pulse Rate 43 L Respiratory Rate 16 Blood Pressure 110/57 L 107/58 L Pulse Oximetry 100 Oxygen Delivery Method 05/09/25 11:45 05/09/25 12:00 05/09/25 12:00 Temperature 97.2 F L Pulse Rate 42 L Respiratory Rate 14 Blood Pressure 101/59 L Pulse Oximetry 100 Oxygen Delivery Method Mechanical Ventilation 05/09/25 12:00 05/09/25 12:15 05/09/25 12:15 Temperature 97.0 F L 97.0 F L Pulse Rate 46 L 42 L Respiratory Rate 10 L 14 Blood Pressure 109/62 Pulse Oximetry 100 100 Oxygen Delivery Method 05/09/25 12:30 05/09/25 12:30 05/09/25 12:45 Temperature 97.0 F L 97.0 F L Pulse Rate 41 L 41 L Respiratory Rate 14 14 Blood Pressure 112/62 Pulse Oximetry 100 100 Oxygen Delivery Method 05/09/25 12:45 05/09/25 13:00 05/09/25 13:00 Temperature 97.0 F L Pulse Rate 40 L Respiratory Rate 14 Blood Pressure 107/61 108/60 Pulse Oximetry 100 Oxygen Delivery Method 05/09/25 13:15 05/09/25 13:15 05/09/25 13:30 Temperature 97.2 F L Pulse Rate 41 L Respiratory Rate 15 Blood Pressure 112/63 118/61 Pulse Oximetry 100 Oxygen Delivery Method 05/09/25 13:30 05/09/25 13:45 05/09/25 13:45 Temperature 97.2 F L 97.2 F L Pulse Rate 40 L 40 L Respiratory Rate 14 15 Blood Pressure 114/60 Pulse Oximetry 100 100 Oxygen Delivery Method 05/09/25 14:00 05/09/25 14:00 05/09/25 14:12 Temperature 97.3 F L Pulse Rate 42 L Respiratory Rate 15 Blood Pressure 106/59 L Pulse Oximetry 100 100 Oxygen Delivery Method 05/09/25 14:15 05/09/25 14:15 05/09/25 14:30 Temperature 97.3 F L Pulse Rate 40 L Respiratory Rate 15 Blood Pressure 110/58 L 110/61 Pulse Oximetry 100 Oxygen Delivery Method 05/09/25 14:30 05/09/25 14:45 05/09/25 14:45 Temperature 97.3 F L 97.5 F L Pulse Rate 40 L 41 L Respiratory Rate 14 14 Blood Pressure 112/59 L Pulse Oximetry 100 100 Oxygen Delivery Method Fraction of Inspired Oxygen 30 Oxygen Delivery Method Mechanical Ventilation Narrative Exam Narrative: Gen: chronically ill appearing, intubated, sedated. Pulm: CTA b/l CV: RRR no m/r/g Abd: S NT ND Ext: no edema Objective ECG Impression: sinus bradycardia, no acute ischemia Labs 05/09/25 04:22 05/09/25 04:22 Labs: Laboratory Results - last 24 hr 05/09/25 05/09/25 05/09/25 00:10 00:19 00:19 WBC 3.9 L RBC 4.05 Hgb 12.0 Hct 35.8 L MCV 88.4 MCH 29.6 MCHC 33.4 RDW 14.0 Plt Count 201 Neut % (Auto) 60.2 Lymph % (Auto) 32.6 [place] % (Auto) 4.9 Eos % (Auto) 1.3 L Baso % (Auto) 1.0 Neut # (Auto) 2400 Lymph # (Auto) 1300 [place] # (Auto) 200 Eos # (Auto) 0 Baso # (Auto) 0 ABG Sample Site ABG pH ABG pCO2 ABG pO2 ABG HCO3 ABG Total CO2 ABG O2 Saturation ABG Base Excess Aldo Test Respiration Rate Mode of Support FiO2 % PEEP or CPAP Sodium 146 H Potassium 3.4 Chloride 114 H Carbon Dioxide 20 L BUN 10 Creatinine 0.52 Estimated GFR > 60 BUN/Creatinine Ratio 19.2 Glucose 104 H Lactate 2.0 Calcium 8.4 Magnesium 2.0 Total Bilirubin 0.4 AST 19 ALT 11 Alkaline Phosphatase 78 Troponin I < 0.012 NT-Pro-B Natriuret Pep 63 Total Protein 6.6 Albumin 4.0 Globulin 2.6 Albumin/Globulin Ratio 1.5 Lipase 161 Urine Color Yellow Urine Appearance Clear Urine pH 5.5 TNP Ur Specific [place] <=1.005 Urine Protein Negative Urine Glucose (UA) Negative Urine Ketones Negative Urine Occult Blood Negative Urine Nitrate Negative Urine Bilirubin Negative Urine Urobilinogen 0.2 Ur Leukocyte Esterase Negative Urine RBC None seen Urine WBC None seen Ur Squamous Epith Cells None seen Urine Bacteria None seen Ur Culture Indicated? Cult not indicated Vol Urine Centrifuged 10ml (spun) Nasal Screen MRSA (PCR) U Opiates 300ng/mL cut Negative Ur Oxycodone Screen Negative Urine Methadone Screen Negative Acetaminophen < 10 Ur Barbiturates Screen Negative U Tricyclic Antidepress Negative Ur Phencyclidine Scrn Negative Ur Amphetamines Screen Negative U Methamphetamines Scrn Negative Ur MDMA Scrn (Ecstasy) Negative U Benzodiazepines Scrn Negative Urine Cocaine Screen Negative U Marijuana (THC) Screen Negative Urine Specific [place] TNP Ethyl Alcohol 219 H Ur Creatinine TNP 05/09/25 05/09/25 05/09/25 01:14 04:19 04:22 WBC 5.0 RBC 4.33 Hgb 12.6 Hct 38.1 MCV 88.0 MCH 29.0 MCHC 33.0 RDW 14.3 Plt Count 228 Neut % (Auto) 56.7 Lymph % (Auto) 36.3 [place] % (Auto) 5.0 Eos % (Auto) 0.2 L Baso % (Auto) 1.8 Neut # (Auto) 2800 Lymph # (Auto) 1800 [place] # (Auto) 300 Eos # (Auto) 0 Baso # (Auto) 100 ABG Sample Site Right radial Right radial ABG pH 7.20 L* 7.35 ABG pCO2 50.3 H 34.1 L ABG pO2 273 H* 115 H ABG HCO3 20 L 19 L ABG Total CO2 19 L 18 L ABG O2 Saturation 100 98 ABG Base Excess -8.2 L -6.1 L Aldo Test N/a N/a Respiration Rate 16 18 Mode of Support Assist cont ventilat Assist cont ventilat FiO2 % 60.0 % 35.0 % PEEP or CPAP 5 5 Sodium 146 H Potassium 3.8 Chloride 118 H Carbon Dioxide 16 L BUN 8 Creatinine 0.52 Estimated GFR > 60 BUN/Creatinine Ratio 15.4 Glucose 164 H Lactate 2.1 Calcium 8.0 L Magnesium 1.8 Total Bilirubin 0.3 AST 67 H ALT 33 Alkaline Phosphatase 76 Troponin I NT-Pro-B Natriuret Pep Total Protein 6.3 Albumin 3.8 Globulin 2.5 Albumin/Globulin Ratio 1.5 Lipase Urine Color Urine Appearance Urine pH Ur Specific [place] Urine Protein Urine Glucose (UA) Urine Ketones Urine Occult Blood Urine Nitrate Urine Bilirubin Urine Urobilinogen Ur Leukocyte Esterase Urine RBC Urine WBC Ur Squamous Epith Cells Urine Bacteria Ur Culture Indicated? Vol Urine Centrifuged Nasal Screen MRSA (PCR) U Opiates 300ng/mL cut Ur Oxycodone Screen Urine Methadone Screen Acetaminophen Ur Barbiturates Screen U Tricyclic Antidepress Ur Phencyclidine Scrn Ur Amphetamines Screen U Methamphetamines Scrn Ur MDMA Scrn (Ecstasy) U Benzodiazepines Scrn Urine Cocaine Screen U Marijuana (THC) Screen Urine Specific [place] Ethyl Alcohol Ur Creatinine 05/09/25 05/09/25 06:10 10:44 WBC RBC Hgb Hct MCV MCH MCHC RDW Plt Count Neut % (Auto) Lymph % (Auto) [place] % (Auto) Eos % (Auto) Baso % (Auto) Neut # (Auto) Lymph # (Auto) [place] # (Auto) Eos # (Auto) Baso # (Auto) ABG Sample Site ABG pH ABG pCO2 ABG pO2 ABG HCO3 ABG Total CO2 ABG O2 Saturation ABG Base Excess Aldo Test Respiration Rate Mode of Support FiO2 % PEEP or CPAP Sodium Potassium Chloride Carbon Dioxide BUN Creatinine Estimated GFR BUN/Creatinine Ratio Glucose Lactate 2.5 H Calcium Magnesium Total Bilirubin AST ALT Alkaline Phosphatase Troponin I NT-Pro-B Natriuret Pep Total Protein Albumin Globulin Albumin/Globulin Ratio Lipase Urine Color Urine Appearance Urine pH Ur Specific [place] Urine Protein Urine Glucose (UA) Urine Ketones Urine Occult Blood Urine Nitrate Urine Bilirubin Urine Urobilinogen Ur Leukocyte Esterase Urine RBC Urine WBC Ur Squamous Epith Cells Urine Bacteria Ur Culture Indicated? Vol Urine Centrifuged Nasal Screen MRSA (PCR) Not detected U Opiates 300ng/mL cut Ur Oxycodone Screen Urine Methadone Screen Acetaminophen Ur Barbiturates Screen U Tricyclic Antidepress Ur Phencyclidine Scrn Ur Amphetamines Screen U Methamphetamines Scrn Ur MDMA Scrn (Ecstasy) U Benzodiazepines Scrn Urine Cocaine Screen U Marijuana (THC) Screen Urine Specific [place] Ethyl Alcohol Ur Creatinine Assessment & Plan Assessment & Plan narrative: 1. acute respiratory Failure - secondary to likely seizure, intubated for airway protection. Now on minimal vent settings. - minimal vent settings. No evidence for infection. - continue sedation trials 2. Seizure Disorder- - previously medications appear to have been keppra 500 mg BID and Topomax (? 50mg daily but unclear dosing). - resumed keppra 1000 mg BID IV for now - if unable to extubate over the next 24-48 hours consider transfer for EEG and neurology consultation. - We do not have EEG available at this facility, nor neurology. - If any seizure activity despite Keppra and sedation, will transfer. - Head CT negative for bleeding, mass, or large stroke. Unable to perform MRI here while intubated. 3. Alcohol abuse now wit probable withdrawal- hx of and was positive on presenting labs for this. Will have IV ativan available and start on IV thiamine, MVI if available, neuro checks, - EtOH level >200 in the ER - continue precedex 4. Acute metabolic encephalopathy- due to the seizure, alcoholism, above mentioned problems 5. hx of polysubstance abuse with methamphetamine use-monitor for withdrawals - of note UA negative for amphemtamines and methamphetamines. 6. Hypotension, hypovolemic shock. Now off of levophed, possibly due to sedation requirements initially and hypovolemia - continue IV fluids - no other ongoing evidence of sepsis or infection, continue to monitor off antibiotics. Code: Full DVT: Lovenox daily I have utilized all available immediate resources to obtain, update, or review the patient's current medications. Dispo: patient admitted under inpatient status to the ICU. Hopefully discharge home if improving, possible transfer if repeat seizure activity. Additional history obtained via discussions with the overnight provider. These discussions contributed to the creation of the above assessment and plan. I have reviewed patient's presenting documentation, labs, and imaging personally. I spent 45 minutes providing critical care management this patient. This excludes time spent in performing separately billed procedures. Time-Based Coding :: [TOTAL MINUTES] spent with patient and on the chart (including review of chart, obtaining history, exam, reviewing outside data, placing orders, documenting exam and treatment plan, and counseling patient) on [DATE]. Quality VTE Deep Vein Thrombosis/Pulmonary Embolism Present on Admission: No
--- NOTE | 2025-05-09 18:41 | PC.NURSE ---
PT OFF LEVO AT 0755. OFF PRECEDEX AT 1040. PT ABLE TO WAKE UP/ FOLLOW COMMANDS WHEN STIMULATED BUT FALLS BACK TO SLEEP. SBT X3 FAILED WITH PERIODS OF APNEA. HEART RATE REMAINED IN 40S THROUGHOUT SHIFT, LOWEST SEEN WAS 38. BP REMAINED STABLE OFF LEVO. MD AWARE OF SBT FAILURES/ HEART RATE. PLAN TO SBT PATIENT IN AM. OK PER MD TO KEEP PT OFF TUBE FEEDS. PT IS CURRENTLY EASILY AROUSABLE AND EDUCATED ON PLAN OF CARE/ NEED FOR RESTRAINTS. CALL LIGHT IN REACH.
--- NOTE | 2025-05-09 20:24 | DI.RAD.S_ITS ---
PROCEDURE: XR CHEST 1V INDICATIONS: Confirm tube placement after reposition TECHNIQUE: One view of the chest was acquired. COMPARISON: [facility], , XR CHEST 1V, 05/09/2025, 1:35. FINDINGS: Surgical changes and devices: Endotracheal tube tip projects approximately 2.8 cm above the genevieve. Nasogastric tube remains stable in positioning. Lungs and pleura: Lungs are clear. No pleural effusions or pneumothorax. Mediastinum: Mediastinal contours appear normal. Heart size is normal. Bones and chest wall: No suspicious bony lesions. Overlying soft tissues appear unremarkable. IMPRESSION: Endotracheal tube tip projects approximately 2.8 cm above the genevieve. Otherwise, stable cardiopulmonary evaluation. Dictated by: Gabriel Gilbert M.D. on 05/10/2025 at 2:14 Approved by: Gabreil Gilbert M.D. on 05/10/2025 at 2:16
--- NOTE | 2025-05-09 20:40 | PM.ICURNDS ---
- :: This patient was seen via real time interactive two-way audiovisual telecommunication. pt remians intubated, awake and on low settings., likely can be extubated in AM - will restart precedex. ativan pn for seizures
--- NOTE | 2025-05-09 20:49 | PC.NURSE ---
Addendum entered by Shanthi Alvarez R.N. 05/10/25 06:17: ~2230 pt had no urine output and upon assessment, catheter was found to be out of pt, with completely deflated balloon. New joyner inserted. Pt opens eyes to touch/pressure, maintaining eye contact. Vent settings during ABG @ ~0600: same as those included in this note @ 2041 Original Note: ~ 2014 Pt restless, coughing, and pulling against restraints. Pt awake, appearing alert. This RN educated pt regarding current situation, pt nods head, but continues to pull on pull on restraints. Resumed precedex, titrating to RASS of 0 (see MAR). Upon RT review of imaging & assessment of pt (coughing/agitation w/movement reported throughout the day), tube visualized at genevieve, tube pulled back 2 cm, for 24 cm at teeth. Repeat imaging to confirm placement. Pt @ 99% on FiO2 21% (reduced from 25% at 2041), PEEP 5, TV 430, RR 14.
[2025-05-09] MEDS: dexmedeTOMIDine in 0.9 % NaCL 400 MCG/100 ML PLAST..BAG 8.352 MCG IV (21:21)
[2025-05-10] VITALS (26 sets, daily range): BP systolic 120–147; BP diastolic 60–68; PULSE 39–50; RESP 12–30; TEMP 36.6; O2SAT 95–100
[2025-05-10] MEDS: levETIRAcetam 1,000 MG in SODIUM CHLORIDE 0.9% 100 ML 440 MG IV ×2 (00:55→11:53)
[2025-05-10] MEDS: SODIUM CHLORIDE 0.9% 1,000 ML 100 ML IV ×2 (02:21→10:39)
[2025-05-10 05:38] LABS: Add Manual Diff / Slide Review NO; Basophils Absolute Auto 100 /uL (0-100); Basophils Percent Auto 1.1 % (0-2); Eosinophils Absolute Auto 100 /uL (0-450); Hematocrit 36.2 % (36-46); Hemoglobin 12.2 g/dL (12.0-16.0); Lymphocytes Absolute Auto 1300 /uL (1100-4500); Lymphocytes Percent Auto 24.7 % (25-40); Mean Corpuscular HGB Conc 33.6 % (30-36); Mean Corpuscular Hemoglobin 29.6 PG (26-34); Mean Corpuscular Volume 88.1 fL (80-100); Monocytes Absolute Auto 400 /uL (0-900); Monocytes Percent Auto 7.2 % (3-14); Neutrophils Absolute Auto 3500 /uL (1500-7000); Platelet Count 161 X10^3/uL (150-400); Red Blood Cell Count 4.11 X10^6/uL (4.0-5.2); Red Cell Distribution Width 14.3 % (11.6-14.8); White Blood Cell Count 5.3 X10^3/uL (4.5-11.0)
[2025-05-10 05:48] LABS: Creatine Kinase 155 U/L (30-135)
[2025-05-10 05:57] LABS: Allen Test for ABG Passed? Positive; Base Excess ABG -0.5 mmol/L (-2-3); Blood Gas Collection Site Left Radial; HCO3 ABG 22 mmol/L (23-27); Oxygen Saturation ABG 97 % (95-100); PCO2 ABG 27.8 mmHg (35-45); PO2 ABG 85 mmHg (80-100); TCO2 ABG 21 mmol/L (23-27)
[2025-05-10 06:12] LABS: Alanine Aminotransferase 24 IU/L (<35); Albumin 2.9 g/dL (3.5-5.0); Albumin Globulin Ratio 1.4 (1.0-2.8); Alkaline Phosphatase 88 U/L (38-126); Aspartate Aminotransferase 30 IU/L (14-36); Bilirubin Total 1.1 mg/dL (0.2-1.3); Blood Urea Nitrogen 12 mg/dL (7-17); Calcium 8.6 mg/dL (8.4-10.2); Carbon Dioxide 19 mmol/L (22-32); Chloride 118 mmol/L (98-107); Estimated Glomerular Filt Rate > 60 mL/min (>60); Globulin 2.1 g/dL (1.7-4.1); Glucose 94 mg/dL (70-99); HEMOLYSIS < 15 (0-50); Magnesium 1.8 mg/dL (1.6-2.3); Potassium 3.9 mmol/L (3.4-5.1); Sodium 143 mmol/L (137-145)
[2025-05-10] MEDS: CHLORHEXIDINE GLUCONATE 15 ML CUP PO ×2 (06:57→12:24)
--- NOTE | 2025-05-10 07:09 | PM.PN.EICU ---
Subjective Subjective IF CAMERA ACTIVATED, patient seen via real-time interactive audiovisual communication: Camera not activated Date Patient Seen: 05/10/25 Consent obtained for tele-blast furnace operator care: Yes Patient Location: ICU Provider location (State): [place] Other participants/roles: bedside RN Interval history: Caregility cameras not working today- IT informed. Bedside RN informed. Spoke to RN on phone re: patient updates. EMR reviewed On 21% on vent, satting well. Overventilated this am, ph 7.5 Co2 27- so RR turned down from 14 to 10- remains only on o.2 of precedex, will awaken and follow commands no seizure activity noted by bedside staff she is Sinus sharda, normal BP, not requiring pressor Current Medications Current Medications Medications: Home Medications fluoxetine 40 mg capsule (Prozac) 20 mg PO QDAY ##0 01/30/13 [History Confirmed 05/09/25] propranolol 20 mg tablet 20 mg PO BID #60 tabs 10/21/16 [Rx Confirmed 05/09/25] ibuprofen 200 mg capsule (Advil Liqui-Gel) 200 mg PO ##0 11/11/16 [History] ketorolac 10 mg tablet 10 mg PO Q6HP PRN pain #20 tabs 11/11/16 [Rx Confirmed 05/09/25] phenytoin sodium extended 100 mg capsule (Dilantin Extended) 500 mg (5 x 100 mg) PO SEE INSTRUCTIONS #125 tabs 12/23/16 [Rx Confirmed 05/09/25] divalproex 500 mg tablet,extended release 24 hr (Depakote ER) 0 PO SEE INSTRUCTIONS #100 tabs 12/21/17 [Rx] levetiracetam 500 mg tablet (Keppra) 500 mg PO .HS #30 tabs 03/04/25 [Rx Confirmed 05/09/25] levetiracetam 750 mg tablet (Keppra) 750 mg PO DAILY #30 tabs 03/04/25 [Rx Confirmed 05/09/25] topiramate 100 mg tablet 150 mg (1.5 x 100 mg) PO BID #90 tabs 03/04/25 [Rx Confirmed 05/09/25] hydrocodone 5 mg-acetaminophen 325 mg tablet 1 tab PO Q4HP PRN pain 05/09/25 [History Confirmed 05/09/25] Visit Medications (administered) Generic Name Dose Route Start Last Admin Trade Name Paxton PRN Reason Stop Dose Admin Chlorhexidine Gluconate 15 ml 05/09/25 06:00 05/10/25 06:57 Chlorhexidine Gluconate 15 Ml Cup PO 15 ml Q6HR SUGAR Administration Enoxaparin Sodium 40 mg 05/09/25 09:00 05/09/25 09:02 Enoxaparin 40 Mg/0.4 Ml Syringe SUBCUT 40 mg DAILY SUGAR Administration dexmedeTOMIDine in 0.9 % NaCL 400 mcg in 100 mls @ 3.341 mls/hr 05/09/25 00:15 05/09/25 22:32 Precedex IV 0.2 mcg/kg/hr TITRATE SUGAR 3.341 mls/hr Protocol Titration 0.2 MCG/KG/HR NOREPINEPHRINE BITARTRATE/D5W 4 mg in 250 mls @ 25.055 mls/hr 05/09/25 00:32 05/09/25 07:55 Levophed IV 0 mcg/kg/min TITRATE SUGAR 0 mls/hr Protocol Titration 0.1 MCG/KG/MIN Sodium Chloride 1,000 mls @ 100 mls/hr 05/09/25 03:15 05/10/25 02:21 Normal Saline 0.9% IV 100 mls/hr CONT SUGAR Administration Levetiracetam 1,000 mg/ Sodium 110 mls @ 440 mls/hr 05/09/25 12:00 05/10/25 01:10 Chloride IV Infused Q12H SUGAR Infusion Pantoprazole Sodium 40 mg 05/09/25 09:00 05/09/25 09:02 Pantoprazole 40 Mg Vial IV 40 mg DAILY SUGAR Administration Objective Ventilator Parameters: Ventilator Settings FiO2 21 RT Vent Frequency 14 Ventilator Tidal Volume 430 Exhaled Vt/kg IBW 7 Positive End Expiratory 5 Pressure Inspiratory Phase Time 0.9 I:E Ratio 1:3.8 Patient Position HOB >= 30 degrees Labs 05/10/25 04:46 05/10/25 04:46 Labs: Laboratory Results - last 24 hr 05/09/25 05/09/25 05/10/25 10:44 23:32 04:46 WBC 5.3 RBC 4.11 Hgb 12.2 Hct 36.2 MCV 88.1 MCH 29.6 MCHC 33.6 RDW 14.3 Plt Count 161 Neut % (Auto) 66.0 Lymph % (Auto) 24.7 L [place] % (Auto) 7.2 Eos % (Auto) 1.0 L Baso % (Auto) 1.1 Neut # (Auto) 3500 Lymph # (Auto) 1300 [place] # (Auto) 400 Eos # (Auto) 100 Baso # (Auto) 100 ABG Sample Site ABG pH ABG pCO2 ABG pO2 ABG HCO3 ABG Total CO2 ABG O2 Saturation ABG Base Excess Aldo Test Sodium 143 Potassium 3.9 Chloride 118 H Carbon Dioxide 19 L BUN 12 Creatinine 0.60 Estimated GFR > 60 BUN/Creatinine Ratio 20.0 Glucose 94 Lactate 1.0 Calcium 8.6 Magnesium 1.8 Total Bilirubin 1.1 AST 30 ALT 24 Alkaline Phosphatase 88 Total Creatine Kinase 155 H Total Protein 5.0 L Albumin 2.9 L Globulin 2.1 Albumin/Globulin Ratio 1.4 Nasal Screen MRSA (PCR) Not detected 05/10/25 05:51 WBC RBC Hgb Hct MCV MCH MCHC RDW Plt Count Neut % (Auto) Lymph % (Auto) [place] % (Auto) Eos % (Auto) Baso % (Auto) Neut # (Auto) Lymph # (Auto) [place] # (Auto) Eos # (Auto) Baso # (Auto) ABG Sample Site Left radial ABG pH 7.50 H ABG pCO2 27.8 L ABG pO2 85 ABG HCO3 22 L ABG Total CO2 21 L ABG O2 Saturation 97 ABG Base Excess -0.5 Aldo Test Positive Sodium Potassium Chloride Carbon Dioxide BUN Creatinine Estimated GFR BUN/Creatinine Ratio Glucose Lactate Calcium Magnesium Total Bilirubin AST ALT Alkaline Phosphatase Total Creatine Kinase Total Protein Albumin Globulin Albumin/Globulin Ratio Nasal Screen MRSA (PCR) Exam Vital Signs (past 8 hours): - 05/09/25 23:30 05/09/25 23:30 05/10/25 00:00 Pulse Rate 40 L Respiratory Rate 32 H Blood Pressure 129/62 125/60 Pulse Oximetry 98 Oxygen Delivery Method 05/10/25 00:00 05/10/25 00:00 05/10/25 00:30 Pulse Rate 43 L Respiratory Rate 28 H Blood Pressure 124/62 Pulse Oximetry 97 Oxygen Delivery Method Mechanical Ventilation 05/10/25 00:30 05/10/25 01:00 05/10/25 01:00 Pulse Rate 41 L 42 L Respiratory Rate 30 H 24 Blood Pressure 126/66 Pulse Oximetry 97 98 Oxygen Delivery Method 05/10/25 01:30 05/10/25 01:30 05/10/25 02:00 Pulse Rate 42 L Respiratory Rate 28 H Blood Pressure 127/63 129/61 Pulse Oximetry 97 Oxygen Delivery Method 05/10/25 02:00 05/10/25 02:30 05/10/25 02:30 Pulse Rate 42 L 42 L Respiratory Rate 29 H 27 H Blood Pressure 129/65 Pulse Oximetry 98 98 Oxygen Delivery Method 05/10/25 02:59 05/10/25 03:00 05/10/25 03:00 Pulse Rate 42 L 42 L Respiratory Rate 28 H 28 H Blood Pressure 129/63 Pulse Oximetry 98 98 Oxygen Delivery Method 05/10/25 03:30 05/10/25 03:30 05/10/25 04:00 Pulse Rate 41 L Respiratory Rate 28 H Blood Pressure 136/65 Pulse Oximetry 100 Oxygen Delivery Method Mechanical Ventilation 05/10/25 04:00 05/10/25 04:00 05/10/25 04:30 Pulse Rate 46 L 40 L Respiratory Rate 29 H 28 H Blood Pressure 120/64 Pulse Oximetry 98 97 Oxygen Delivery Method 05/10/25 04:30 05/10/25 05:00 05/10/25 05:00 Pulse Rate 40 L Respiratory Rate 29 H Blood Pressure 130/63 130/62 Pulse Oximetry 95 Oxygen Delivery Method Fraction of Inspired Oxygen 30 Oxygen Delivery Method Mechanical Ventilation Narrative Exam Narrative: unable to perform camera exam due to technical issue Quality TeleICU VTE Deep Vein Thrombosis/Pulmonary Embolism Present on Admission: No Assessment & Plan Assessment and plan (1) Seizure disorder: Status: Acute (2) Alcohol intoxication: Qualifiers: Complication of substance-induced condition: uncomplicated Qualified Code(s): F10.920 - Alcohol use, unspecified with intoxication, uncomplicated Status: Acute (3) Hypothermia: Qualifiers: Encounter type: initial encounter Qualified Code(s): T68.XXXA - Hypothermia, initial encounter Status: Acute (4) Noncompliance with medication regimen: Status: Acute (5) Alcohol use disorder: Status: Acute (6) Housing instability: Status: Acute Assessment & Plan narrative: ASSESSMENT: # Acute respiratory failure, on mechanical ventilator support.? Intubated mainly for airway protection in the setting of recurrent seizures and also intoxication # Seizure disorder # Acute alcohol intoxication # Chronic alcoholism # History of polysubstance abuse with methamphetamine use # Homelessness PLAN: - Most recent vent settings reviewed.? Currently on minimal vent support with FiO2 21% PEEP of 5.? Overventilated today- with resp alkalosis- this may be why she was apneic during prior SBT- turn down RR let co2 climb so she has normal drive to breathe- Will proceed with SBT with goal extubation - Once extubated, keep n.p.o. until passed swallow evaluation ideally by speech therapy.? Order PT/OT eval, out of bed to chair. - Continue with Keppra 1000 mg IV Twice daily. - Aspiration & seizure precautions.? - she is normotensive and off pressors, bradycardia likley in part due to precedex. plan to d/c it for awakening trial and extubation - Very high risk for alcohol withdrawal.? Will monitor her in ICU - CIWA protocol with as needed Ativan, add Librium once passed swallow evaluation.? Continue with IV thiamine, folate, MVI. - would continue iv hydration today, monitor UOP -trend BMP, replace lytes PRN ICU BUNDLE: # DVT prophylaxis: Lovenox subcu # GI prophylaxis: Protonix- can d/c once extubated # Blood glucose, goal <180- in goal Time-Based Coding :: [28 min ] spent with patient and on the chart (including review of chart, obtaining history, reviewing data, placing orders, documenting treatment plan, discussing with bedside team) on [05/10/25].
--- NOTE | 2025-05-10 08:11 | PC.NURSE ---
Addendum entered by Tj Dickinson R.N. 05/10/25 12:19: 1215 - Patient able to answer yes/no question with nodding and shaking head, able to indicate her throat hurt and wanted pain medicine. Patient quickly fell asleep or stopped responding off and on during assessment. Dr. Jackson made aware, PRN pain medication ordered. Addendum entered by Tj Dickinson R.N. 05/10/25 09:41: 0935 - Per Dr. Webb, move towards extubation if patient not being transferred to another facility. If transferring, keep patient intubated for transport. Dr. Jackson stated patient to be transferred for EEG and higher level of care. Addendum entered by Tj Dickinson R.N. 05/10/25 08:29: 0815 - Attempted to remove restraints and use hand mitts and frequent reorientation, but patient continued to reach towards and grab ET tube, IV lines, and other medical equipment without purpose. Unable to redirect and patient is disoriented, not following commands. Placed back on bilateral upper extremity soft restraints after least restrictive interventions attempted. Original Note: 0715 - Precedex drip turned off. 0800 - RT at bedside to begin SBT. 0812 - Patient failed SBT due to multiple episodes of prolonged apnea and RR below 8/min. Dr Jackson alerted.
[2025-05-10] MEDS: ENOXAPARIN 40 MG/0.4 ML SYRINGE SUBCUT (09:10)
[2025-05-10] MEDS: PANTOPRAZOLE 40 MG VIAL IV (09:10)
--- NOTE | 2025-05-10 11:10 | DIET.CONS ---
Dietary Consultation Note Admission Date: 05/09/2025 02:50 Assessment: RD f/u. Pt failed SBT this morning again. Per hospitalist in rounds, can start tube feeds if not transferred today. Limited nutrition focused physical exam with moderate muscle wasting in temples and moderate to severe loss in clavicle region. Ht: 170 cm Wt: 66.814 kg BMI: 23.1 Last BM: () MNA: Russell Score: 12 Diet: 05/09/25 03:06 NPO Diet Diet Modifications: NPO Type: NPO except for Meds Nutrition Percent Meal Consumed 0% 05/09/25 08:42 Labs: RBC 4.11 X10^6/uL (4.0-5.2) 05/10/25 04:46 Hgb 12.2 g/dL (12.0-16.0) 05/10/25 04:46 Hct 36.2 % (36-46) 05/10/25 04:46 Creatinine 0.60 mg/dL (0.52-1.04) 05/10/25 04:46 Lactate 1.0 mmol/L (0.7-2.1) 05/09/25 23:32 NT-Pro-B Natriuret Pep 63 pg/mL (<125) 05/09/25 00:10 Nutrition Diagnosis: Moderate chronic protein calorie malnutrition r/t inadequate protein and nutrient dense intake with excessive EtOH intake as evidenced by history of alcohol abuse with EtOH level >200 in the ER and history of polysubstance abuse with methamphetamine, moderate to severe muscle mass wasting in temples, deltoid, pectoralis major Interventions: 1. Recc continuous enteral nutrition of Pivot 1.5 starting at 10 mL/hr and advancing 10 mL/hr Q24H until goal rate of 45 mL/hr. Flush free water 60 mL Q6H. Fluid needs: 1980 mL (30mL/kg per age). At goal rate plus flushes, feeds provide 1050 mL fluids. Will coordinate with healthcare team to adjust IV fluids as tube feeds advance. At goal rate tube feeds provide: 1620 kcals, 101 g protein. 2. Recc monitoring re-feeding labs K+, phos, Mg per protocol. EER: [id number] kcals (25-30 kcals/kg per ICU) 80-100 g protein (1.2-1.5 g/kg per ICU) Monitoring/Evaluations: start of tube feeds if not transferred today and tolerance/labs Electronically Signed by: Terra Crump 05/10/25 11:10 Clinical Dietitian [address] [id number]
--- NOTE | 2025-05-10 12:20 | PM.PN.1 ---
Subjective Subjective Interval history: 64 F admitted after 2x seizure intubated for airway protection. Became apnic with breathing trial today again. Will intermittently wake up then fall asleep. Has been only on precedex for >24 hours now. No definitive seizure activity. Unclear if continued apnea due to over-ventilation, alcohol withdrawal, or possible seizure activity. Discussed with technology applications engineer at [facility], accepted for transfer for higher level care and possible need for EEG. Exam Vital Signs (past 8 hours): - 05/10/25 04:30 05/10/25 04:30 05/10/25 05:00 Temperature Pulse Rate 40 L 40 L Respiratory Rate 28 H 29 H Blood Pressure 130/63 Pulse Oximetry 97 95 Oxygen Delivery Method 05/10/25 05:00 05/10/25 05:30 05/10/25 05:30 Temperature Pulse Rate 40 L Respiratory Rate 28 H Blood Pressure 130/62 135/64 Pulse Oximetry 97 Oxygen Delivery Method 05/10/25 06:00 05/10/25 06:00 05/10/25 06:30 Temperature Pulse Rate 39 L Respiratory Rate 29 H Blood Pressure 130/63 133/66 Pulse Oximetry 98 Oxygen Delivery Method 05/10/25 06:30 05/10/25 07:00 05/10/25 07:00 Temperature Pulse Rate 39 L 39 L Respiratory Rate 28 H 27 H Blood Pressure 131/64 Pulse Oximetry 98 96 Oxygen Delivery Method 05/10/25 07:15 05/10/25 07:30 05/10/25 07:30 Temperature 97.9 F Pulse Rate 41 L Respiratory Rate 28 H Blood Pressure 142/68 H Pulse Oximetry 97 Oxygen Delivery Method 05/10/25 08:00 05/10/25 08:00 05/10/25 08:00 Temperature Pulse Rate 40 L Respiratory Rate 21 Blood Pressure 138/66 Pulse Oximetry 98 98 Oxygen Delivery Method 05/10/25 08:00 05/10/25 08:30 05/10/25 08:30 Temperature Pulse Rate 40 L Respiratory Rate 23 Blood Pressure 138/67 Pulse Oximetry 96 Oxygen Delivery Method Mechanical Ventilation 05/10/25 09:00 05/10/25 09:00 Temperature Pulse Rate 41 L Respiratory Rate 23 Blood Pressure 147/67 H Pulse Oximetry 96 Oxygen Delivery Method Fraction of Inspired Oxygen 30 Oxygen Delivery Method Mechanical Ventilation Narrative Exam Narrative: Gen: chronically ill appearing, intubated, sedated. Pulm: CTA b/l CV: RRR no m/r/g Abd: S NT ND Ext: no edema Objective Labs 05/10/25 04:46 05/10/25 04:46 Labs: Laboratory Results - last 24 hr 05/09/25 05/09/25 05/10/25 10:44 23:32 04:46 WBC 5.3 RBC 4.11 Hgb 12.2 Hct 36.2 MCV 88.1 MCH 29.6 MCHC 33.6 RDW 14.3 Plt Count 161 Neut % (Auto) 66.0 Lymph % (Auto) 24.7 L [place] % (Auto) 7.2 Eos % (Auto) 1.0 L Baso % (Auto) 1.1 Neut # (Auto) 3500 Lymph # (Auto) 1300 [place] # (Auto) 400 Eos # (Auto) 100 Baso # (Auto) 100 ABG Sample Site ABG pH ABG pCO2 ABG pO2 ABG HCO3 ABG Total CO2 ABG O2 Saturation ABG Base Excess Aldo Test Sodium 143 Potassium 3.9 Chloride 118 H Carbon Dioxide 19 L BUN 12 Creatinine 0.60 Estimated GFR > 60 BUN/Creatinine Ratio 20.0 Glucose 94 Lactate 1.0 Calcium 8.6 Magnesium 1.8 Total Bilirubin 1.1 AST 30 ALT 24 Alkaline Phosphatase 88 Total Creatine Kinase 155 H Total Protein 5.0 L Albumin 2.9 L Globulin 2.1 Albumin/Globulin Ratio 1.4 Nasal Screen MRSA (PCR) Not detected 05/10/25 05:51 WBC RBC Hgb Hct MCV MCH MCHC RDW Plt Count Neut % (Auto) Lymph % (Auto) [place] % (Auto) Eos % (Auto) Baso % (Auto) Neut # (Auto) Lymph # (Auto) [place] # (Auto) Eos # (Auto) Baso # (Auto) ABG Sample Site Left radial ABG pH 7.50 H ABG pCO2 27.8 L ABG pO2 85 ABG HCO3 22 L ABG Total CO2 21 L ABG O2 Saturation 97 ABG Base Excess -0.5 Aldo Test Positive Sodium Potassium Chloride Carbon Dioxide BUN Creatinine Estimated GFR BUN/Creatinine Ratio Glucose Lactate Calcium Magnesium Total Bilirubin AST ALT Alkaline Phosphatase Total Creatine Kinase Total Protein Albumin Globulin Albumin/Globulin Ratio Nasal Screen MRSA (PCR) [facility] Medical History (Updated 05/09/25 @ 02:32 by Courtney Schultz MD) Hyperlipidemia History of kidney stones Peripheral arterial disease Hypertension COPD (chronic obstructive pulmonary disease) Methamphetamine abuse Continuous tobacco abuse Alcohol use disorder Migraine with aura Post-traumatic epilepsy Social History Smoking Status: Unknown if ever smoked alcohol intake: current Assessment & Plan Assessment & Plan narrative: 1. acute respiratory Failure - secondary to likely seizure, intubated for airway protection. Now on minimal vent settings. - minimal vent settings. No evidence for infection. - sedation currently only with precedex. Continues to fail breathing trials with apnea. 2. Seizure Disorder- - previously medications appear to have been keppra 500 mg BID and Topomax (? 50mg daily but unclear dosing). - resumed keppra 1000 mg BID IV for now - Discussed with technology applications engineer at [facility]. Accepted for transfer for EEG and neurology consultation at [facility] pending bed at this time. - We do not have EEG available at this facility, nor neurology. - Head CT negative for bleeding, mass, or large stroke. Unable to perform MRI here while intubated at [facility]. 3. Alcohol abuse now wit probable withdrawal- hx of and was positive on presenting labs for this. Will have IV ativan available and start on IV thiamine, MVI if available, neuro checks, - EtOH level >200 in the ER - continue precedex - will start tube feeds and if tolerating librium. 4. Acute metabolic encephalopathy- due to the seizure, alcoholism, above mentioned problems. Possible post-ictal state after seizure or possible subclinical seizure activity. 5. hx of polysubstance abuse with methamphetamine use-monitor for withdrawals - of note UA negative for amphemtamines and methamphetamines. Negative for opiates as well. 6. Hypotension, hypovolemic shock. Now off of levophed, possibly due to sedation requirements initially and hypovolemia - continue IV fluids - no other ongoing evidence of sepsis or infection, continue to monitor off antibiotics. Code: Full DVT: Lovenox daily I have utilized all available immediate resources to obtain, update, or review the patient's current medications. Dispo: patient admitted under inpatient status to the ICU. Pending transfer for EEG / neurology consultation. I spent 45 minutes providing critical care management this patient. This excludes time spent in performing separately billed procedures. Time-Based Coding :: [TOTAL MINUTES] spent with patient and on the chart (including review of chart, obtaining history, exam, reviewing outside data, placing orders, documenting exam and treatment plan, and counseling patient) on [DATE]. Quality VTE Deep Vein Thrombosis/Pulmonary Embolism Present on Admission: No
[2025-05-10] MEDS: MORPHINE 4 MG/ML INJ IV ×2 (12:25→16:22)
[2025-05-10] MEDS: dexmedeTOMIDine in 0.9 % NaCL 400 MCG/100 ML PLAST..BAG 5.011 MCG IV ×2 (13:36→19:21)
--- NOTE | 2025-05-10 13:47 | CM.DPC ---
Addendum entered by AIDEN Byrne 05/10/25 15:20: ADD: Pt with discharge orders for hospital transfer to [facility] ICU for EEG and ongoing medical care. specialty sales consultant working on time for transport today. BF Original Note: DCP Cont: Per MD and RN, attempted breathing trial and pt unable to maintain and remains intubated today with soft restraints due to grabbing at tubing and not being able to follow directives. Starting tube feeds and might attempt hospital transfer for EEG but uncertain if pt will be accepted for hospital transfer and lack of beds available as well. Plan: SW to follow closely for ongoing attempts at extubation and to determine discharge planning needs when pt more medically appropriate. AIDEN Byrne
--- NOTE | 2025-05-10 14:42 | PM.DS.1 ---
History of Present Illness History of Present Illness Date Patient Seen: 05/10/25 Time Patient Seen: 14:42 Chief complaint: seizure Narrative: Per overnight admitting provider, The pt is a 64 yo with a knkown seizure disorder, alcoholism, methamphetamine abuse who stopped taking her meds at least several weeks ago and is homeless was brought to the ER tonight after having a witnessed seizure across the street from the hospital. She was given versed which stopped the seizure and she resumed normal cognitive functioning but she had another seizure shortly after and the pt was given ketamine, rocuronium & intubated at that time to protect her airway. The pt was then transported to the ICU where I interviewed the pt. She is currently intubated, on Levophed, Precedex for sedation and was not responding to questions or commands, only has a cough and gag reflex. This is a 64 year old female with PMH of epilepsy, possible EtOH use and meth who was intubated after repeat seizure in the ER and admitted here. She is on minimal vent settings this AM. Please see H&P from overnight provider for additional information. She is on sedation vacation this morning, not really arousable and became apnic. Head CT was done overnight which was unremarkable. Last seen at [facility] ER for medication refill in 03/2025. Very long med list but most recent meds appeared to be Keppra 500 mg BID and Topamax 50 mg daily. Discharge Providers Provider Date of admission: 05/09/25 02:50 Discharge Date: 05/10/25 Primary care physician: Doctor Jose MD Consults: 05/09/25 03:10 Consult to Tele-help desk specialist Routine Comment: Consulting Provider: [facility] [employer] Reason for consultation: [employer] [facility] Has provider been notified: No Discharge provider: Otoniel Jackson DO Summary Hospital Course Discharge Diagnosis: Please see below: Hospital Course: 1. acute respiratory Failure - secondary to likely seizure, intubated for airway protection. Now on minimal vent settings. - minimal vent settings. No evidence for infection. - sedation currently only with precedex. Continues to fail breathing trials with repeated apnea. 2. Seizure Disorder- - previously medications appear to have been keppra 500 mg BID and Topomax (? 50mg daily but unclear dosing). Unclear if patient was reliably taking medications either at this time. Last contact was last month at [facility]. - resumed keppra 1000 mg BID IV for now - Discussed with help desk specialist at [facility]. Accepted for transfer for EEG and neurology consultation at [facility] pending bed at this time. - We do not have EEG available at this facility, nor neurology. - Head CT negative for bleeding, mass, or large stroke. Unable to perform MRI here while intubated at [facility] given pumps are not MRI compatible. 3. Alcohol abuse now wit probable withdrawal- hx of and was positive on presenting labs for this. - EtOH level >200 in the ER - continue precedex - will start tube feeds and if tolerating librium. 4. Acute metabolic encephalopathy- due to the seizure, alcoholism, above mentioned problems. Possible post-ictal state after seizure or possible subclinical seizure activity. - does seem to be more alert intermittently over the past 24 hours, though continues to have episodes of apnea during breathing trials despite only on precedex for sedation now >24 hours. 5. hx of polysubstance abuse with methamphetamine use-monitor for withdrawals - of note UA negative for amphemtamines and methamphetamines. Negative for opiates as well. 6. Hypotension, hypovolemic shock. Now off of levophed, possibly due to sedation requirements initially and hypovolemia - continue IV fluids - no other ongoing evidence of sepsis or infection, continue to monitor off antibiotics. Code: Full DVT: Lovenox daily I have utilized all available immediate resources to obtain, update, or review the patient's current medications. Dispo:Transfer for EEG / neurology consultation to ICU at [facility]. Time Spent with Patient Time spent: Greater than 30 minutes Exam Vital Signs (past 8 hours): - 05/10/25 07:00 05/10/25 07:00 05/10/25 07:15 Temperature 97.9 F Pulse Rate 39 L Respiratory Rate 27 H Blood Pressure 131/64 Pulse Oximetry 96 Oxygen Delivery Method 05/10/25 07:30 05/10/25 07:30 05/10/25 08:00 Temperature Pulse Rate 41 L Respiratory Rate 28 H Blood Pressure 142/68 H Pulse Oximetry 97 98 Oxygen Delivery Method 05/10/25 08:00 05/10/25 08:00 05/10/25 08:00 Temperature Pulse Rate 40 L Respiratory Rate 21 Blood Pressure 138/66 Pulse Oximetry 98 Oxygen Delivery Method Mechanical Ventilation 05/10/25 08:30 05/10/25 08:30 05/10/25 09:00 Temperature Pulse Rate 40 L Respiratory Rate 23 Blood Pressure 138/67 147/67 H Pulse Oximetry 96 Oxygen Delivery Method 05/10/25 09:00 05/10/25 12:00 Temperature Pulse Rate 41 L Respiratory Rate 23 Blood Pressure Pulse Oximetry 96 Oxygen Delivery Method Mechanical Ventilation Fraction of Inspired Oxygen 30 Oxygen Delivery Method Mechanical Ventilation Narrative Exam Narrative: Gen: chronically ill appearing, intubated, sedated. Pulm: CTA b/l CV: RRR no m/r/g Abd: S NT ND Ext: no edema Objective Labs 05/10/25 04:46 05/10/25 04:46 Labs: Laboratory Results - last 24 hr 05/09/25 05/10/25 05/10/25 23:32 04:46 05:51 WBC 5.3 RBC 4.11 Hgb 12.2 Hct 36.2 MCV 88.1 MCH 29.6 MCHC 33.6 RDW 14.3 Plt Count 161 Neut % (Auto) 66.0 Lymph % (Auto) 24.7 L Yates % (Auto) 7.2 Eos % (Auto) 1.0 L Baso % (Auto) 1.1 Neut # (Auto) 3500 Lymph # (Auto) 1300 Yates # (Auto) 400 Eos # (Auto) 100 Baso # (Auto) 100 ABG Sample Site Left radial ABG pH 7.50 H ABG pCO2 27.8 L ABG pO2 85 ABG HCO3 22 L ABG Total CO2 21 L ABG O2 Saturation 97 ABG Base Excess -0.5 Aldo Test Positive Sodium 143 Potassium 3.9 Chloride 118 H Carbon Dioxide 19 L BUN 12 Creatinine 0.60 Estimated GFR > 60 BUN/Creatinine Ratio 20.0 Glucose 94 Lactate 1.0 Calcium 8.6 Magnesium 1.8 Total Bilirubin 1.1 AST 30 ALT 24 Alkaline Phosphatase 88 Total Creatine Kinase 155 H Total Protein 5.0 L Albumin 2.9 L Globulin 2.1 Albumin/Globulin Ratio 1.4 [facility] Medical History (Updated 05/09/25 @ 02:32 by Courtney Schultz MD) Hyperlipidemia History of kidney stones Peripheral arterial disease Hypertension COPD (chronic obstructive pulmonary disease) Methamphetamine abuse Continuous tobacco abuse Alcohol use disorder Migraine with aura Post-traumatic epilepsy Social History Smoking Status: Unknown if ever smoked alcohol intake: current Discharge Plan Discharge Plan Patient Disposition: er [facility] Provider Discharge Comment: See discharge summary Discharge Data Primary Care Provider: Miscellaneous,Doctor Quality VTE Deep Vein Thrombosis/Pulmonary Embolism Present on Admission: No
[2025-05-10] MEDS: diazePAM 10 MG/2 ML SYRINGE 5 MG IV (18:12)
== END 2025-05-10 19:50 | disposition short-term general hospital (02) | DRG 100 ==
LOC: ED 05-09 02:32 → AC 05-09 02:51 → ICU 05-09 03:13
PROVIDERS: Internal Medicine; Admitting Provider Internal Medicine; Emergency Provider Emergency Medicine; Referring Provider Emergency Medicine; Visit Provider Internal Medicine
DX: G40.909 Epilepsy, unspecified, not intractable, without status epilepticus (principal); G93.41 Metabolic encephalopathy; J96.02 Acute respiratory failure with hypercapnia; R57.1 Hypovolemic shock; Z59.00 Homelessness unspecified; F10.139 Alcohol abuse with withdrawal, unspecified; F15.11 Other stimulant abuse, in remission; I95.9 Hypotension, unspecified; F10.129 Alcohol abuse with intoxication, unspecified; T42.6X6A Underdosing of other antiepileptic and sedative-hypnotic drugs, initial encounter; Y90.7 Blood alcohol level of 200-239 mg/100 ml; Z87.820 Personal history of traumatic brain injury; Z91.148 Patient's other noncompliance with medication regimen for other reason
CPT/HCPCS: 36415; 36600; 70450; 71045; 80053; 80305; 80320; 80329; 81001; 82550; 82805; 82962; 83605; 83690; 83735; 83880; 84484; 85025; 87797; 93005; 93010; 94002; 94003; 94010; 94799; 96365; 96366; 96367; 99233; 99285; 99291; 99292; G0480; J1650; J1953; J2270; J2470; J3360